=== PATIENT | female | born 1955 | race Caucasian/White ===

== ENCOUNTER 2016-12-14 13:48 | Emergency (ER) | payer OTHER ==
[~2016-12-14] VITALS: Ht 157.5 cm; Wt 68.0 kg
[~2016-12-14 13:48] MED LIST: HYDR-3498 PO; IBUP400T22 PO; TAMS-14 PO; TRAM50TA2 PO
[2016-12-14 13:57] VITALS: Ht 157.5 cm; Wt 68.0 kg
[2016-12-14] MEDS ORDERED: ATOR40TA68 PO (17:08)
[2016-12-14] MEDS ORDERED: AMLO5TAB4 PO (17:08)
[2016-12-14] MEDS ORDERED: HYDR-906 PO (17:09)
[2016-12-14] MEDS ORDERED: METO25TA7 PO (17:09)
[2016-12-14] MEDS ORDERED: LOSA1TAB21 PO (17:09)
[2016-12-14] MEDS ORDERED: SOD CHLORIDE 0.9% 1,000 ML IV STA (17:21)
[2016-12-14] MEDS ORDERED: BISACODYL 10 MG SUPP PR ONE (17:30)
[2016-12-14] MEDS ORDERED: LACTULOSE 30ML CUP PO ONE (17:30)
[2016-12-14 18:04] LABS: ADD SCAN DIFF NO
[2016-12-14 18:07] LABS: BASOPHIL # 0.1 10^3/ul (0.0-0.1); BASOPHILS % 0.3 % (0.0-2.0); EOSINOPHILS # 0.1 10^3/ul (0.0-0.5); EOSINOPHILS % 0.6 % (0.0-7.0); HEMATOCRIT 42.1 % (37.0-47.0); HEMOGLOBIN 13.4 g/dl (12.0-16.0); LYMPHOCYTES # 1.5 10^3/ul (0.8-2.9); LYMPHOCYTES % 7.6 % (15.0-51.0); MEAN CORPUSCULAR HEMOGLOBIN 28.4 pg (29.0-33.0); MEAN CORPUSCULAR HGB CONC 31.8 g/dl (32.0-37.0); MEAN CORPUSCULAR VOLUME 89.2 fl (82.0-101.0); MEAN PLATELET VOLUME 10.9 fl (7.4-10.4); MONOCYTES % 4.9 % (0.0-11.0); NEUTROPHIL # 17.2 10^3/ul (1.6-7.5); NEUTROPHILS % 85.9 % (39.0-77.0); PLATELET COUNT 449 10^3/UL (140-415); RED BLOOD COUNT 4.72 10^6/ul (4.20-5.40); RED CELL DISTRIBUTION WIDTH 14.1 % (11.5-14.5)
[2016-12-14] MEDS ORDERED: KETOROLAC 30 MG INJ IV STA (18:22)
[2016-12-14 18:27] LABS: ALBUMIN 4.2 g/dl (3.3-4.9); ALBUMIN/GLOBULIN RATIO 1.35; BILIRUBIN,INDIRECT 0.1 mg/dl (0-1.1); BILIRUBIN,TOTAL 0.1 mg/dl (0.2-1.3); CALCIUM 9.6 mg/dl (8.4-10.2); CREATININE 0.82 mg/dl (0.44-1.00); POTASSIUM 3.7 mmol/L (3.5-5.1); TOTAL PROTEIN 7.3 g/dl (6.1-8.1)
--- NOTE | 2016-12-14 18:48 | RADRPT ---
PROCEDURE: CT Abdomen and Pelvis without contrast. CLINICAL INDICATION: Abdominal pelvic pain. Constipation. TECHNIQUE: CT scan of the abdomen and pelvis without contrast was performed on a multidetector hig h-resolution CT scanner. The patient was scanned without intravenous contrast. Coronal and sagittal reformatted images were obtained from the axial source images. Images were reviewed on a high-resol [email or web address] PACS workstation. The total exam CTDI equals 8.88 mGy and the total exam DLP equals 444.95 mGy -cm. One or more of the following dose reduction techniques were used: - Automated exposure control. - Adjustment of the mA and/or kV according to patient size. - Use of iterative reconstruction technique. COMPARISON: Thoracic spine CT scan dated 05/18/2016 FINDINGS: CT abdomen: The lung bases are remarkable for dense subsegmental atelectasis within the right posterior lung bas e. Scattered tiny micronodules are seen within the lung bases bilaterally as well, too small to bianca racterize and overwhelmingly likely benign and inflammatory in nature. The heart size is normal, wi thout pericardial thickening or effusion. The liver is normal in size and density without focal mass or intrahepatic biliary dilatation. There is a small 11 mm cyst in the lateral segment of the left lobe of the liver. The spleen is normal in size and homogeneous in density. The stomach is partially collapsed, but is grossly unremarkable. The pancreas as visualized is normal. The gallbladder and biliary tree are unremarkable and there is no evidence for biliary dilatation. The adrenal glands are symmetric and remarkable for nodular pleural thickening bilaterally, probably with multiple small adrenal adenomas. The largest nodule i s present on the left side and measures 19 mm in maximal dimension. The kidneys are asymmetric, nor mal on the right and mildly shrunken and atrophic on the left. No renal calculus or obstructive urop athy or mass lesion is seen. The aorta is of normal caliber. Aortic vascular calcifications are present. There is no retroperit carrillo lymphadenopathy. The brian hepatis region is clear. The bowel and mesentery, as visualized, are equally unremarkable. Moderate and significant stool is seen throughout the colon consistent wit h moderate constipation. CT pelvis: The small bowel loops situated within the pelvis are unremarkable. The pelvic organs are normal. Th e bladder is significantly distended. The pelvic sidewalls and inguinal regions are clear. The sigm oid colon and rectum are remarkable for moderate constipation, with a large amount of significant de nse constipation within the distal rectal vault. Mild perirectal and presacral stranding and edema is present. No mass or adenopathy is seen. No free fluid is present. No acute inflammation is ident ified at this time. The surrounding osseous structures are remarkable for degenerative spondylosis of the spine. No ost eolytic or osteoblastic lesion is detected. Moderate compression fracture of the T12 vertebral body is seen, age indeterminate. This may be acute. Edema around this vertebral body is noted. Further evaluation with lumbar spine MRI is recommended. This is a new finding when compared to the previou s thoracic spine CT scan study. Severe discogenic disease and disk space narrowing at the L5-S1 leve l is identified. IMPRESSION: 1. Moderate acute compression fracture of the T12 vertebral body. Further evaluation with MRI of t he thoracolumbar junction of the spine is recommended for more complete assessment. 2. Significant colonic constipation throughout the colon, with a large amount of stool within the d istal rectal vault. 3. Vascular calcifications consistent with atherosclerosis. 4. Tiny micronodules within the lung bases, too small to characterize, and presumably benign and in flammatory in nature. 5. Mild asymmetric atrophy of the left kidney when compared to the right kidney. 6. Nodular thickening and presumed small benign adrenal adenomas involving the adrenal glands bilat erally. 7. Benign chronic changes seen elsewhere throughout the study, as detailed above. RPTAT: HMJB .Gaetano Collier MD, Date Time Electronically viewed and signed by .Gaetano Collier MD, on 12/14/2016 18:47 .B/
[2016-12-14 19:08] VITALS: TEMP 99
[2016-12-14] MEDS ORDERED: MAGN296S40 PO (19:20)
[2016-12-14] MEDS ORDERED: SENN-53 PO (19:20)
[2016-12-14] MEDS ORDERED: DOCU-144 PO (19:20)
[2016-12-14 19:48] LABS: ADD UMIC NO; URINE BILIRUBIN (Dip) NEGATIVE (NEGATIVE); URINE BLOOD (Dip) NEGATIVE (NEGATIVE); URINE COLOR LT. YELLOW (YELLOW); URINE GLUCOSE (Dip) NEGATIVE (NEGATIVE); URINE KETONES (Dip) NEGATIVE (NEGATIVE); URINE LEUKOCYTE ESTERASE (Dip) NEGATIVE (NEGATIVE); URINE NITRITE (Dip) NEGATIVE (NEGATIVE); URINE TOTAL PROTEIN (Dip) NEGATIVE (NEGATIVE); URINE UROBILINOGEN (Dip) 0.2 E.U./dL (0.1-1.0)
[2016-12-14 20:00] VITALS: BP 157/74; PULSE 75; RESP 18
--- NOTE | 2016-12-14 21:55 | ERD ---
ER Documentation Chief Complaint Date/Time DATE: 12/14/16 TIME: 21:53 Chief Complaint ap, constipation x 4 days HPI Patient is a 61-year-old female who presents with constipation. She said that she has bulging disc in her back and has been taking Monroe for the past 1 week. She has not been able to have a bowel movement for 4 days. She has not had a urination for 6 hours. She tried Ex-Lax and an enema. She then started bleeding from her hemorrhoids. Upon review of old medical records this is the patient's third visit to the ER since 2016. Her primary doctor is Dr. Jason Prater. ROS All systems reviewed and are negative except as per history of present illness. Medications Home Meds Active Scripts Docusate Sodium* (Colace*) 100 Mg Capsule, 200 MG PO BID, #60 CAP Prov:KEITH NICOLAS MD 12/14/16 Sennosides* (Senna Lax*) 8.6 Mg Tablet, 1 TAB PO BID, #30 TAB Prov:KEITH NICOLAS MD 12/14/16 Magnesium Citrate* (Magnesium Citrate*) 296 Ml Solution, 296 ML PO ONCE, #1 BOTTLE Prov:KEITH NICOLAS MD 12/14/16 Reported Medications Losartan-Hydrochlorothiazide (Losartan-HCTZ) 100-12.5 Mg Tab, 1 TAB PO DAILY, TAB 12/14/16 Metoprolol Succinate* (Toprol XL*) 25 Mg Tab.sr.24h, 25 MG PO DAILY, #30 TAB 12/14/16 Hydrocodone/Acetaminophen (Monroe 5-325 Tablet) 1 Each Tablet, 1 EACH PO BID, TAB 12/14/16 Atorvastatin* (Atorvastatin*) 40 Mg Tablet, 40 MG PO QHS, #30 TAB 12/14/16 Amlodipine Besylate* (Norvasc*) 5 Mg Tablet, 5 MG PO DAILY, TAB 12/14/16 Discontinued Scripts Tramadol HCl (Tramadol HCl) 50 Mg Tablet, 50 MG PO Q6 Y for PAIN, #20 TAB Prov:POOJA RODRÍGUEZ NP 05/18/16 Ibuprofen* (Motrin*) 400 Mg Tab, 400 MG PO Q6H Y for PAIN AND OR ELEVATED TEMP, #30 TAB Prov:POOJA RODRÍGUEZ NP 05/18/16 Hydrocodone Bit-Acetaminophen* (Monroe*) 5-325 Mg Tab, 1 TAB PO Q6 Y for PAIN, # 7 TAB Prov:RON,GEORGIANA I. CIVIL TECHNICIAN 01/02/16 Tamsulosin Hcl* (Flomax*) 0.4 Mg Cap.er.24h, 0.4 MG PO BID, #10 CAP Prov:RONGEORGIANA I. CIVIL TECHNICIAN 01/02/16 Allergies Allergies: Coded Allergies: No Known Allergy (Unverified , 12/14/16) PMhx/Soc History of Surgery: No Anesthesia Reaction: No Hx Neurological Disorder: No Hx Respiratory Disorders: No Hx Cardiac Disorders: Yes (HTN, high cholesterol) Hx Psychiatric Problems: No Hx Alcohol Use: Yes (1 beer a day) Hx Substance Use: No Hx Tobacco Use: Yes (1/2 pack/day) Smoking Status: Current every day smoker FmHx Family History: No diabetes Physical Exam Vitals Vital Signs Date Time Temp Pulse Resp B/P Pulse Ox O2 Delivery O2 Flow Rate FiO2 12/14/16 20:00 75 18 157/74 97 Room Air 12/14/16 19:08 99.0 80 18 158/82 97 Room Air 12/14/16 16:42 99 18 170/88 98 Room Air 12/14/16 13:57 98.1 96 18 148/62 99 Physical Exam Const: No acute distress Head: Atraumatic Eyes: Normal Conjunctiva ENT: Normal External Ears, Nose and Mouth. Neck: Full range of motion..~ No meningismus. Resp: Clear to auscultation bilaterally Cardio: Regular rate and rhythm, no murmurs Abd: Soft, non tender, non distended. Normal bowel sounds Skin: No petechiae or rashes Back: No midline or flank tenderness Ext: No cyanosis, or edema Neur: Awake and alert Psych: Normal Mood and Affect Result Diagram: 12/14/16 1730 12/14/16 173 Results 24 hrs Laboratory Tests Test 12/14/16 17:30 12/14/16 18:50 White Blood Count 20.010^3/ul Red Blood Count 4.7210^6/ul Hemoglobin 13.4g/dl Hematocrit 42.1% Mean Corpuscular Volume 89.2fl Mean Corpuscular Hemoglobin 28.4pg Mean Corpuscular Hemoglobin Concent 31.8g/dl Red Cell Distribution Width 14.1% Platelet Count 55500^3/UL Mean Platelet Volume 10.9fl Neutrophils % 85.9% Lymphocytes % 7.6% Monocytes % 4.9% Eosinophils % 0.6% Basophils % 0.3% Nucleated Red Blood Cells % 0.0/100WBC Neutrophils # 17.210^3/ul Lymphocytes # 1.510^3/ul Monocytes # 1.010^3/ul Eosinophils # 0.110^3/ul Basophils # 0.110^3/ul Nucleated Red Blood Cells # 0.010^3/ul Sodium Level 137mmol/L Potassium Level 3.7mmol/L Chloride Level 104mmol/L Carbon Dioxide Level 24mmol/L Anion Gap 13 Blood Urea Nitrogen 14mg/dl Creatinine 0.82mg/dl Glucose Level 107mg/dl Calcium Level 9.6mg/dl Total Bilirubin 0.1mg/dl Direct Bilirubin 0.00mg/dl Indirect Bilirubin 0.1mg/dl Aspartate Amino Transf (AST/SGOT) 18IU/L Alanine Aminotransferase (ALT/SGPT) 25IU/L Alkaline Phosphatase 123IU/L Total Protein 7.3g/dl Albumin 4.2g/dl Globulin 3.10g/dl Albumin/Globulin Ratio 1.35 Lipase 78U/L Urine Color LT. YELLOW Urine Clarity CLEAR Urine pH 6.0 Urine Specific [place] 1.025 Urine Ketones NEGATIVE Urine Nitrite NEGATIVE Urine Bilirubin NEGATIVE Urine Urobilinogen 0.2 E.U./dL Urine Leukocyte Esterase NEGATIVE Urine Hemoglobin NEGATIVE Urine Glucose NEGATIVE% Urine Total Protein NEGATIVE Current Medications Medications (Trade) Dose Ordered Sig/Juan Jose Route PRN Reason Start Time Stop Time Status Last Admin Dose Admin Sodium Chloride (NS) 1,000 ml @ 1,000 mls/hr Q1H STAT IV 12/14/16 17:21 12/14/16 18:20 DC 12/14/16 19:01 Lactulose (Enulose) 20 gm ONCE ONCE PO 12/14/16 17:30 12/14/16 17:31 DC 12/14/16 18:25 Bisacodyl (Dulcolax Supp) 10 mg ONCE ONCE AL 12/14/16 17:30 12/14/16 17:31 DC 12/14/16 19:02 Ketorolac Tromethamine (Toradol) 30 mg ONCE STAT IV 12/14/16 18:22 12/14/16 18:23 DC 12/14/16 18:27 Procedures/MDM CT shows constipation and T12 acute fracture per radiology. Patient is a 61-year-old female presents with abdominal pain and constipation. She was also found to have a compression fracture. She was given lactulose, Dulcolax, and I believe outpatient management is appropriate. The patient will need to follow-up with her primary doctor within 24-48 hours. She can return sooner for any worsening symptoms. She will be given a prescription for mag citrate and senna and Colace. I doubt appendicitis, cholecystitis, pancreatitis , or bowel obstruction. Departure Diagnosis: Primary Impression: Constipation Constipation type: unspecified constipation type Qualified Code: K59.00 - Constipation, unspecified constipation type Additional Impressions: Compression fracture Abdominal pain Abdominal location: generalized Qualified Code: R10.84 - Generalized abdominal pain Condition: Fair Patient Instructions: Abdominal Pain, Treating Constipation Additional Instructions: Call your primary care doctor TOMORROW for an appointment during the next 1-2 days.See the doctor sooner or return here if your condition worsens before your appointment time. KEITH NICOLAS MD December 14, 2016 21:55
== END 2016-12-14 20:00 | disposition home or self-care (01) ==
LOC: E/R 13:48
DX: K59.00 Constipation, unspecified (principal); S22.080A Wedge compression fracture of T11-T12 vertebra, initial encounter for closed fracture; R10.84 Generalized abdominal pain; R40.2142 Coma scale, eyes open, spontaneous, at arrival to emergency department; R40.2252 Coma scale, best verbal response, oriented, at arrival to emergency department; R40.2362 Coma scale, best motor response, obeys commands, at arrival to emergency department; I10 Essential (primary) hypertension; F17.210 Nicotine dependence, cigarettes, uncomplicated; X58.XXXA Exposure to other specified factors, initial encounter; Y92.9 Unspecified place or not applicable
CPT/HCPCS: 74176; 80053; 81003; 83690; 85025; J1885; J7030; 36415; 96374

== ENCOUNTER 2017-03-08 04:12 | Inpatient (IN) | payer OTHER ==
[~2017-03-08] VITALS: Ht 160 cm; Wt 48.6 kg
[~2017-03-08 04:12] MED LIST changes: +AMLO5TAB4 PO; +ATOR40TA68 PO; +DOCU-144 PO; -HYDR-3498 PO; +HYDR-906 PO; -IBUP400T22 PO; +LOSA1TAB21 PO; +MAGN296S40 PO; +METO25TA7 PO; +SENN-53 PO; -TAMS-14 PO; -TRAM50TA2 PO
[2017-03-08] MEDS ORDERED: SOD CHLORIDE 0.9% 1,000 ML IV STA (04:22)
[2017-03-08] MEDS ORDERED: SOD CHLORIDE 0.9% 500 ML IV STA ×2 (04:25→07:01)
[2017-03-08] MEDS ORDERED: morphine 4 MG/ML VIAL IV ONE (04:32)
[2017-03-08] MEDS ORDERED: ONDANSETRON 4 MG INJ IV ONE (04:33)
[2017-03-08 05:03] LABS: ABNORMAL IP MESSAGE 1; HEMATOCRIT 42.7 % (37.0-47.0); HEMOGLOBIN 14.3 g/dl (12.0-16.0); MEAN CORPUSCULAR HEMOGLOBIN 29.1 pg (29.0-33.0); MEAN CORPUSCULAR HGB CONC 33.5 g/dl (32.0-37.0); MEAN CORPUSCULAR VOLUME 86.8 fl (82.0-101.0); MEAN PLATELET VOLUME 10.2 fl (7.4-10.4); PLATELET COUNT 612 10^3/UL (140-415); RED BLOOD COUNT 4.92 10^6/ul (4.20-5.40); RED CELL DISTRIBUTION WIDTH 14.8 % (11.5-14.5)
[2017-03-08 05:17] LABS: ADD UMIC YES; POSITIVE DIFF @See below; UR ASCORBIC ACID NEGATIVE (NEGATIVE); UR BACTERIA FEW /HPF (NONE SEEN); UR BILIRUBIN (Dip) NEGATIVE (NEGATIVE); UR BLOOD (Dip) NEGATIVE (NEGATIVE); UR CLARITY CLEAR (CLEAR); UR COLOR YELLOW (YELLOW); UR GLUCOSE (Dip) NEGATIVE (NEGATIVE); UR KETONES (Dip) NEGATIVE (NEGATIVE); UR LEUKOCYTE ESTERASE (Dip) 2+ Leu/ul (NEGATIVE); UR NITRITE (Dip) NEGATIVE (NEGATIVE); UR RBC 4 /HPF (0-5); UR TOTAL PROTEIN (Dip) NEGATIVE (NEGATIVE); UR UROBILINOGEN (Dip) NEGATIVE (NEGATIVE)
[2017-03-08] MEDS ORDERED: CYCL-319 PO (05:19)
[2017-03-08] MEDS ORDERED: TRAM-40 PO (05:19)
[2017-03-08 05:30] LABS: ALANINE AMINOTRANSFERASE 25 IU/L (13-69); ALBUMIN 4.1 g/dl (3.3-4.9); ALBUMIN/GLOBULIN RATIO 1.24; ALKALINE PHOSPHATASE 136 IU/L (42-121); ANION GAP 21 (8-16); ASPARTATE AMINO TRANSFERASE 19 IU/L (15-46); BILIRUBIN,INDIRECT 0.2 mg/dl (0-1.1); BILIRUBIN,TOTAL 0.2 mg/dl (0.2-1.3); BLOOD UREA NITROGEN 16 mg/dl (7-20); CALCIUM 9.7 mg/dl (8.4-10.2); CARBON DIOXIDE 26 mmol/L (21-31); CHLORIDE 99 mmol/L (97-110); CREATININE 1.24 mg/dl (0.44-1.00); GLUCOSE 111 mg/dl (70-220); POTASSIUM 3.7 mmol/L (3.5-5.1); SODIUM 142 mmol/L (135-144); TOTAL PROTEIN 7.4 g/dl (6.1-8.1)
[2017-03-08] MEDS ORDERED: HYDROmorphONE 1 MG/ML SYG IV ONE (05:40)
[2017-03-08 05:42] LABS: TROPONIN-I < 0.012 ng/ml (0.00-0.12)
--- NOTE | 2017-03-08 05:57 | RADRPT ---
PROCEDURE: CT ABDOMEN/PELVIS WITHOUT CONTRAST CLINICAL INDICATION: 61-year-old female with abdominal pain. TECHNIQUE: The study was performed utilizing a GE Open[employer] VCT 64-slice CT scanner. Direct axia l sections were obtained through the abdomen and pelvis without the use of intravenous contrast mate rial. Sagittal and coronal reformations were obtained. One or more of the following dose reduction t echniques were utilized: automated exposure control, adjustment of the mA and/or kV according to pat ient's size or use of iterative reconstruction technique. The images were reviewed on a [facility]. CTD/vol = 7.2 mGy; Total Exam DLP = 366 point a mGy-cm. COMPARISON: CT abdomen/pelvis December 14, 2016. FINDINGS: There is a partially visualized right basilar pneumothorax. There is a mild right-sided hemothorax. There are fractures identified involving the right seventh, eighth and ninth ribs in the midaxilla ry line, right ninth rib posteriorly and right fifth, sixth, and seventh ribs anteriorly. There is adjacent pleural thickening. There is minimal small foci of right upper quadrant pneumoperitoneum. There is minimal free fluid a djacent to the inferior margin of the right lobe of the liver. There is mild diffuse infiltration of the ventral mesentery. The liver has a normal size and contour. There is again identified a small left hepatic cyst on axial image 3-30 measuring approximately 8 x 9 mm. No intrahepatic nor extrahep atic biliary ductal dilatation is seen. The gallbladder demonstrates no wall thickening nor perichol ecystic fluid. No biliary stones are evident. The pancreas is without areas of abnormal attenuation. The spleen is identified and has a normal size without abnormal density. The adrenal glands are pr ominent bilaterally secondary to hyperplasia and without interval change. The kidneys are without ab normal density. The left kidney is noted to be moderately atrophic. No hydroureteronephrosis nor nep hroureterolithiasis is evident. The urinary bladder contains urine. There is retained stool within the ascending and transverse colon without obstruction. There is a lipoma present within the proxim al ascending colon measuring approximately 2.2 x 2.6 x 2.7 cm. This was present previously and with out significant interval change. The appendix is visualized and is without abnormal thickening or s urrounding inflammatory reaction. The uterus is atrophic. There is mild pelvic free fluid. The aort oiliac vessels are diffusely calcified but without aneurysmal dilatation. Degenerative changes are p resent within the spine. There is a compression fracture of the superior T12 vertebral body with pr ogressive sclerotic appearance and loss of height of approximately 70% centrally. IMPRESSION: 1. Partially visualized right basilar hemopneumothorax with adjacent acute right fifth through nint h rib fractures. 2. Minimal right upper quadrant pneumoperitoneum. 3. Minimal free fluid adjacent to the inferior margin of the right lobe of the liver with mild free fluid in the pelvis. 4. Infiltration of the ventral upper abdominal mesentery presumably representing a post-traumatic m esenteric contusion. 5. Small stable left hepatic cyst. 6. Mildly enlarged adrenal glands bilaterally presumably secondary to hyperplasia. 7. Ascending colon lipoma. 8. Vascular calcifications. 9. Superior T12 compression fracture (70%) with progressive loss of height and sclerotic appearance . CALL REPORT: A call report was made to [facility] ER Dr. Ty on March 08, 2017 at 05:53 a.m. .Ramon Le MD, MD Date Time Electronically viewed and signed by .Ramon Le MD, MD on 03/08/2017 05:57 .M/
[2017-03-08 06:14] LABS: BASOPHIL # 0.4 10^3/ul (0.0-0.1); EOSINOPHILS # 0.4 10^3/ul (0.0-0.5); LYMPHOCYTES # 1.8 10^3/ul (0.8-2.9); MONOCYTE # 2.5 10^3/ul (0.3-0.9); NEUTROPHIL # 27.8 10^3/ul (1.6-7.5)
[2017-03-08] MEDS ORDERED: HYDROmorphONE 1 MG/ML SYG IV STA ×2 (06:59→11:00)
[2017-03-08] MEDS ORDERED: SOD CHLORIDE 0.9% 100 ML ONE (07:51)
[2017-03-08] MEDS ORDERED: IODIXANOL LOCM 100 ML BTL ONE (07:51)
--- NOTE | 2017-03-08 09:44 | RADRPT ---
PROCEDURE: CT Chest, Abdomen and Pelvis with contrast. CLINICAL INDICATION: Chest and abdominal pain status post fall. TECHNIQUE: CT scan of the chest, abdomen, and pelvis with contrast was performed on a multi-detect or high-resolution CT scanner. The patient was scanned following the uncomplicated intravenous adm inistration of 100 cc of Visipaque 320 intravenous contrast. Coronal and sagittal reformatted imag es were obtained from the axial source images. [facility] The total exam CTDI equals 7.04 mGy and the total exam DLP equals 466.74 mGy-cm. One or more of the following dose reduction techniques were used: Automated exposure control. Adjustment of the mA and/or kV according to patient size. Use of iterative reconstruction technique. COMPARISON: CT abdomen and pelvis without contrast 03/08/2017. FINDINGS: CT chest: There are mildly displaced lateral rib fractures involving the right fourth through eighth ribs. Th ere is also mildly displaced posterior rib fractures involving the right ninth ribs. There is a sma ll right pleural effusion with mild pleural thickening. There is subsegmental atelectasis in the ri ght middle lobe and right lung base. There is minimal anteriorly loculated right pneumothorax. The mediastinum is unremarkable without evidence for mass or lymphadenopathy. The vascular structur es of the mediastinum are normal in course and caliber. Aortic vascular calcifications and coronary artery calcifications are present. The heart size is normal without evidence for pericardial thicke campbell or effusion. The axillary regions, subpectoral regions, and supraclavicular regions are all unr emarkable. CT abdomen: There is minimal perihepatic fluid. No evidence of liver laceration. Minimal pneumoperitoneum is a gain identified in the right upper quadrant. There is a small cyst in the left hepatic lobe. The sp chau is normal in size and homogeneous in density. The stomach is partially collapsed, but is gross ly unremarkable. The pancreas as visualized is normal. The gallbladder and biliary tree are unrema rkable and there is no evidence for biliary dilatation. Nodular thickening of bilateral adrenal gla nds are again identified. There is atrophic left kidney. The right kidney is normal in size with n o hydronephrosis. No renal calculus or obstructive uropathy or mass lesion is seen. The aorta is of normal caliber. Aortic vascular calcifications are present. There is no retroperit carrillo lymphadenopathy. The brian hepatis region is clear. Redemonstrated is a lipoma in the ascend ing colon. CT pelvis: The small bowel loops situated within the pelvis are unremarkable. The pelvic organs are normal. T he pelvic sidewalls and inguinal regions are clear. The sigmoid colon and rectum are all unremarkab le. No mass, lymphadenopathy, or free fluid is seen. No acute inflammation is seen. Chronic-appear ing moderate to severe compression fracture of T7 with approximately 80% height loss and moderate co mpression fracture of T12 with approximately 50% height loss are noted. There is no significant ret ropulsion. The surrounding osseous structures are remarkable for degenerative spondylosis of the sp ine. No osteolytic or osteoblastic lesion is detected. IMPRESSION: Chest: 1. Mildly displaced lateral rib fractures of the right fourth through eighth ribs and posterior rig ht ninth ribs. 2. Small hemopneumothorax, not significantly changed. 3. Concentric atherosclerotic calcifications of the ascending aorta. Scattered coronary artery vasc ular calcifications. 4. Moderate to severe chronic-appearing compression fracture of T7 and moderate compression fractur e of T12. Abdomen and pelvis: 1. Slightly increased small perihepatic fluid with interval decrease in minimal free air in the rig ht upper quadrant. 2. No evidence of solid organ injury. 3. Mild atrophy of the left kidney. 4. Nodular thickening of bilateral adrenal glands. 5. Ascending colon lipoma. 6. Aortoiliac atherosclerosis. RPTAT: BB .David Mendoza MD, Date Time Electronically viewed and signed by .David Mendoza MD, on 03/08/2017 09:44 .O/
[2017-03-08] MEDS ORDERED: SOD CHLORIDE 0.9% 1,000 ML IV SCH (10:59)
[2017-03-08] MEDS ORDERED: ACETAMINOPHEN 650 MG SUPP PR PRN (11:00)
[2017-03-08] MEDS ORDERED: morphine 4 MG/ML VIAL IV PRN (11:00)
[2017-03-08] MEDS ORDERED: NACL 0.9% 3 ML SYG IV SCH (11:00)
[2017-03-08] MEDS ORDERED: ONDANSETRON 4 MG INJ IV PRN (11:00)
[2017-03-08] MEDS ORDERED: CYCLOBENZAPRINE 10 MG TAB PO PRN (11:00)
[2017-03-08] MEDS ORDERED: DOCUSATE SODIUM 100 MG CAP PO PRN (11:00)
[2017-03-08] MEDS ORDERED: ACETAMINOPHEN 325 MG TAB PO PRN (11:00)
[2017-03-08] MEDS ORDERED: hydrALAzine 20 MG INJ IV PRN (11:30)
[2017-03-08] MEDS ORDERED: PIPER-TAZO 3.375 GM IV (PMX) 100 ML IVPB ONE (11:30)
[2017-03-08] MEDS: CEFTRIAXONE 1 GM/50 ML (PMX) 50 ML IVPB SCH (12:02)
[2017-03-08] MEDS ORDERED: NITROGLYCERIN (SL) 0.4 MG TAB SL PRN (12:30)
[2017-03-08] MEDS ORDERED: ALBUTEROL/IPRATROPIUM (NEB) 3 ML AMP NEB PRN (12:30)
--- NOTE | 2017-03-08 13:32 | CONS ---
Date/Time of Note Date/Time of Note DATE: 03/08/17 TIME: 13:18 Assessment/Plan Assessment/Plan Chief Complaint/Hosp Course 61-year-old female status post fall 3 weeks ago with multiple rib fractures, hemopneumothorax, minimal pneumoperitoneum, free abdominal fluid * The small amount of pneumoperitoneum is likely secondary to the hemopneumothorax and rib fractures which has tracked into the abdomen. Patient also likely has some hemoperitoneum. My suspicion for intestinal injury is low however, cannot be completely ruled out * At this time given patient's clinical stability, would recommend n.p.o., pain control, bedrest, serial CBCs * Thoracic surgery evaluation for possibility of chest tube insertion and evacuation of hemopneumothorax. * Pain control for rib fractures. Oxygen support. Incentive spirometry. * Once she is stable from a pulmonary standpoint I would like to repeat the CT of the abdomen and pelvis with oral contrast to further evaluate for possible intestinal injury. I discussed the above with the patient and her daughter in full detail. I ensured that all of her questions were answered. Further recommendations will be made based on patient's clinical course. Problems: Consultation Date/Type/Reason Admit Date/Time Date of Consultation: Mar 08, 2017 Type of Consultation: GENERAL SURGERY Reason for Consultation Abdominal pain Hx of Present Illness The patient is a 61-year-old [facility], [place] speaking female who presented to the emergency room complaining of abdominal pain and chest wall pain. History was obtained from the patient's daughter who is at the bedside. Apparently, approximately 3 weeks ago the patient sustained a fall with multiple rib fractures. She has since been under the care of a chiropractor for rehabilitation. This morning the patient woke up complaining of upper abdominal pain. She denies any nausea/vomiting, diarrhea/constipation or fever/ chills. She denies any blood in stool. She was brought to the emergency room where a workup including a CT scan of the chest, abdomen and pelvis showed a hemopneumothorax as well as a small amount of pneumoperitoneum in the right upper quadrant. The patient has since been started on pain control and oxygen. She reports improvement of her pain. A 14 point review of systems was conducted and was negative except for that which is mentioned in HPI Past Medical History Medical History: no pertinent history Past Surgical History Past Surgical Hx: no surgical history Family History Significant Family History: no pertinent family hx Social History Smoking Status: Current some day smoker Exam/Review of Systems Vital Signs Vitals Vital Signs Date Time Temp Pulse Resp B/P Pulse Ox O2 Delivery O2 Flow Rate FiO2 03/08/17 12:09 98 24 140/86 97 Nasal Cannula 2.0 03/08/17 10:49 98.3 Exam GENERAL: Awake, alert, oriented x 3. No acute distress. Sitting up in bed. SKIN: No jaundice. HEENT: PERRLA, EOMI, No Scleral Icterus NECK: Supple without JVD CARDIOVASCULAR: S1S2, regular rate and rhythm. CHEST WALL: Tenderness of right chest wall RESPIRATORY: Decreased breath sounds right lung base. Somewhat labored breathing. ABDOMEN: Mild upper abdominal tenderness to palpation. There is no signs of diffuse peritonitis. EXTREMITIES: Free range of motion x 4. No cyanosis, edema, or clubbing. NEUROLOGIC: Cranial nerves II-XII are intact. Sensation is intact grossly. Results Result Diagram: 03/08/17 0445 03/08/17 0445 Results 24 hrs Laboratory Tests Test 03/08/17 04:45 03/08/17 11:18 White Blood Count 36.1 #H Red Blood Count 4.92 Hemoglobin 14.3 Hematocrit 42.7 Mean Corpuscular Volume 86.8 Mean Corpuscular Hemoglobin 29.1 Mean Corpuscular Hemoglobin Concent 33.5 Red Cell Distribution Width 14.8 H Platelet Count 612 #H Mean Platelet Volume 10.2 Neutrophils % 77.0 Lymphocytes % 5.0 L Monocytes % 7.0 Eosinophils % 1.0 Basophils % 1.0 Nucleated Red Blood Cells % 0.0 Neutrophils # 27.8 H Band Neutrophils # 27.8 H Lymphocytes # 1.8 Monocytes # 2.5 H Eosinophils # 0.4 Basophils # 0.4 H Nucleated Red Blood Cells # Activated Partial Thromboplast Time 22.5 L Urine Color YELLOW Urine Clarity CLEAR Urine pH 5.0 Urine Specific [place] 1.010 Urine Ketones NEGATIVE Urine Nitrite NEGATIVE Urine Bilirubin NEGATIVE Urine Urobilinogen NEGATIVE Urine Leukocyte Esterase 2+ H Urine Microscopic RBC 4 Urine Microscopic WBC 7 H Urine Bacteria FEW A Urine Hemoglobin NEGATIVE Urine Glucose NEGATIVE Urine Total Protein NEGATIVE Sodium Level 142 Potassium Level 3.7 Chloride Level 99 Carbon Dioxide Level 26 Anion Gap 21 H Blood Urea Nitrogen 16 Creatinine 1.24 H Glucose Level 111 Calcium Level 9.7 Total Bilirubin 0.2 Direct Bilirubin 0.00 Indirect Bilirubin 0.2 Aspartate Amino Transf (AST/SGOT) 19 Alanine Aminotransferase (ALT/SGPT) 25 Alkaline Phosphatase 136 H Troponin I < 0.012 Total Protein 7.4 Albumin 4.1 Globulin 3.30 H Albumin/Globulin Ratio 1.24 Lipase 341 H Lactic Acid Level 1.8 Medications Medications Current Medications Amlodipine Besylate (Norvasc) 5 mg DAILY PO ; Start 03/09/17 at 09:00 Atorvastatin Calcium (Lipitor) 40 mg QHS PO ; Start 03/08/17 at 21:00 Cyclobenzaprine HCl (Flexeril) 10 mg Q8 PRN PO MUSCLE SPASMS; Start 03/08/17 at 11:00 Docusate Sodium (Colace) 200 mg BID PO ; Start 03/08/17 at 21:00 Metoprolol Succinate (Toprol Xl) 25 mg DAILY PO ; Start 03/09/17 at 09:00 Senna (Senokot) 1 tab BID PO ; Start 03/08/17 at 21:00 Losartan Potassium 100 mg 100 mg DAILY PO ; Start 03/09/17 at 09:00 Sodium Chloride (NS) 1,000 ml @ 75 mls/hr [id number] IV ; Start 03/08/17 at 10:59 Ondansetron HCl (Zofran Inj) 4 mg Q6H PRN IV NAUSEA AND/OR VOMITING; Start 03/08 at 11:00 Acetaminophen (Tylenol Tab) 650 mg Q6H PRN PO PAIN LEVEL 1-3 OR FEVER; Start at 11:00 Acetaminophen (Tylenol Supp) 650 mg Q6H PRN [place] PAIN LEVEL 1-3 OR FEVER; Start 03/08/17 at 11:00 Acetaminophen/ Hydrocodone Bitart ([place] (5/325)) 1 tab Q6H PRN PO MODERATE PAIN LEVEL 4-6; Start 03/08/17 at 11:00 Morphine Sulfate (morphine) 2 mg Q4H PRN IV SEVERE PAIN LEVEL 7-10; Start at 11:00 Docusate Sodium (Colace) 100 mg Q12H PRN PO CONSTIPATION; Start 03/08/17 at 11: 00 Famotidine 20 mg 20 mg HS IV ; Start 03/08/17 at 21:00 Ceftriaxone Sodium (Rocephin) 50 ml @ 100 mls/hr Q24H IVPB Last administered on 03/08/17t 12:02; Admin Dose 100 MLS/HR; Start 03/08/17 at 11:30 Hydralazine HCl (Apresoline) 10 mg Q6H PRN IV SBP>160; Start 03/08/17 at 11:30 Hydrochlorothiazide (Hydrochlorothiazide) 12.5 mg DAILY PO ; Start 03/09/17 at 09 :00 Nitroglycerin (Nitroglycerin (Sl Tab) 0.4 Mg) 1 tab Q5M PRN SL CHEST PAIN; Start 03/08/17 at 12:30 Procedures Procedures PROCEDURE: CT Chest, Abdomen and Pelvis with contrast. CLINICAL INDICATION: Chest and abdominal pain status post fall. TECHNIQUE: CT scan of the chest, abdomen, and pelvis with contrast was performed on a multi-detector high-resolution CT scanner. The patient was scanned following the uncomplicated intravenous administration of 100 cc of Visipaque 320 intravenous contrast. Coronal and sagittal reformatted images were obtained from the axial source images. Images were reviewed on a high- resolution PACS workstation. The total exam CTDI equals 7.04 mGy and the total exam DLP equals 466.74 mGy-cm. One or more of the following dose reduction techniques were used: Automated exposure control. Adjustment of the mA and/or kV according to patient size. Use of iterative reconstruction technique. COMPARISON: CT abdomen and pelvis without contrast 03/08/2017. FINDINGS: CT chest: There are mildly displaced lateral rib fractures involving the right fourth through eighth ribs. There is also mildly displaced posterior rib fractures involving the right ninth ribs. There is a small right pleural effusion with mild pleural thickening. There is subsegmental atelectasis in the right middle lobe and right lung base. There is minimal anteriorly loculated right pneumothorax. The mediastinum is unremarkable without evidence for mass or lymphadenopathy. The vascular structures of the mediastinum are normal in course and caliber. Aortic vascular calcifications and coronary artery calcifications are present. The heart size is normal without evidence for pericardial thickening or effusion. The axillary regions, subpectoral regions, and supraclavicular regions are all unremarkable. CT abdomen: There is minimal perihepatic fluid. No evidence of liver laceration. Minimal pneumoperitoneum is again identified in the right upper quadrant. There is a small cyst in the left hepatic lobe. The spleen is normal in size and homogeneous in density. The stomach is partially collapsed, but is grossly unremarkable. The pancreas as visualized is normal. The gallbladder and biliary tree are unremarkable and there is no evidence for biliary dilatation. Nodular thickening of bilateral adrenal glands are again identified. There is atrophic left kidney. The right kidney is normal in size with no hydronephrosis. No renal calculus or obstructive uropathy or mass lesion is seen. The aorta is of normal caliber. Aortic vascular calcifications are present. There is no retroperitoneal lymphadenopathy. The brian hepatis region is clear. Redemonstrated is a lipoma in the ascending colon. CT pelvis: The small bowel loops situated within the pelvis are unremarkable. The pelvic organs are normal. The pelvic sidewalls and inguinal regions are clear. The sigmoid colon and rectum are all unremarkable. No mass, lymphadenopathy, or free fluid is seen. No acute inflammation is seen. Chronic-appearing moderate to severe compression fracture of T7 with approximately 80% height loss and moderate compression fracture of T12 with approximately 50% height loss are noted. There is no significant retropulsion. The surrounding osseous structures are remarkable for degenerative spondylosis of the spine. No osteolytic or osteoblastic lesion is detected. IMPRESSION: Chest: 1. Mildly displaced lateral rib fractures of the right fourth through eighth ribs and posterior right ninth ribs. 2. Small hemopneumothorax, not significantly changed. 3. Concentric atherosclerotic calcifications of the ascending aorta. Scattered coronary artery vascular calcifications. 4. Moderate to severe chronic-appearing compression fracture of T7 and moderate compression fracture of T12. Abdomen and pelvis: 1. Slightly increased small perihepatic fluid with interval decrease in minimal free air in the right upper quadrant. 2. No evidence of solid organ injury. 3. Mild atrophy of the left kidney. 4. Nodular thickening of bilateral adrenal glands. 5. Ascending colon lipoma. 6. Aortoiliac atherosclerosis. RPTAT: BB .David Mendoza MD, MD Date Time Electronically viewed and signed by .David Mendoza MD, MD on 03/08/2017 09:44 .O/ CC: DAMIANAIXA GUZMAN MD, MICHAEL A. MD Mar 08, 2017 13:32
--- NOTE | 2017-03-08 13:57 | CONS ---
Date/Time of Note Date/Time of Note DATE: 03/08/17 TIME: 13:53 Assessment/Plan Assessment/Plan Additional Assessment/Plan CT chest was reviewed as well as abdomen which is showing a very small right anterior loculated hemopneumothorax. Multiple rib fractures are seen from ribs fifth to ninth which are nondisplaced. Assessment and recommendations; next 1. Patient with history of fall 3 weeks ago now complaining of right upper quadrant abdominal pain with interval improvement. 2. Very small right anterior hemopneumothorax. Continue pain control. Patient does not need any intervention. Consultation Date/Type/Reason Admit Date/Time Date of Consultation: Mar 08, 2017 Type of Consultation: Pulmonary Reason for Consultation Pulmonary consultation requested for evaluation of right hemopneumothorax. History of present illness; patient is a very pleasant 60-year-old white woman who came into the emergency room with the 102 day history of mild upper quadrant chest pain on the right side. Upon evaluation a CT scan of abdomen and chest was done which is showing a very small right loculated anterior hemopneumothorax. The patient's symptoms have markedly improved since admission. She denies any chest pain, shortness of breath any coughing or hemoptysis. Past medical history; history of hypertension and hyperlipidemia. Medications; reviewed. Allergies; none. Social history; patient smokes half a pack a day. No history of alcohol or drug abuse. Family history; she is she has 2 daughters. Occupation ; patient works for elderly people. Review of systems; denies any headache, seizures, sinus symptoms. Any chest pain, hemoptysis cough or sputum production. Denies any shortness of breath. Abdominal pain has resolved. Denies any nausea vomiting. Any melena hematochezia. Any edema. Any orthopnea. General exam; elderly female, awake alert currently in no distress. Past Medical History Medical History: no pertinent history Past Surgical History Past Surgical Hx: no surgical history Social History Smoking Status: Current some day smoker Exam/Review of Systems Vital Signs Vitals Vital Signs Date Time Temp Pulse Resp B/P Pulse Ox O2 Delivery O2 Flow Rate FiO2 03/08/17 12:09 98 24 140/86 97 Nasal Cannula 2.0 03/08/17 10:49 98.3 Exam HEENT exam; supple neck, no JVD. No lymphadenopathy. Midline trachea. No thyromegaly Patient has dentures. Has midsize pupils bilaterally. Chest exam; alert to auscultation. Mild tenderness involving the right anterolateral chest wall. S1-S2 audible, no murmurs. Regular rhythm. Abdomen exam; soft, nontender. No organomegaly. Bowel sounds audible. Extremity exam; no peripheral edema. Pulses 1+ bilaterally. No clubbing. G[employer]MENT [employer] exam; no focal deficit. Results Result Diagram: 03/08/17 0445 03/08/17 0445 Results 24 hrs Laboratory Tests Test 03/08/17 04:45 03/08/17 11:18 White Blood Count 36.1 #H Red Blood Count 4.92 Hemoglobin 14.3 Hematocrit 42.7 Mean Corpuscular Volume 86.8 Mean Corpuscular Hemoglobin 29.1 Mean Corpuscular Hemoglobin Concent 33.5 Red Cell Distribution Width 14.8 H Platelet Count 612 #H Mean Platelet Volume 10.2 Neutrophils % 77.0 Lymphocytes % 5.0 L Monocytes % 7.0 Eosinophils % 1.0 Basophils % 1.0 Nucleated Red Blood Cells % 0.0 Neutrophils # 27.8 H Band Neutrophils # 27.8 H Lymphocytes # 1.8 Monocytes # 2.5 H Eosinophils # 0.4 Basophils # 0.4 H Nucleated Red Blood Cells # Activated Partial Thromboplast Time 22.5 L Urine Color YELLOW Urine Clarity CLEAR Urine pH 5.0 Urine Specific [place] 1.010 Urine Ketones NEGATIVE Urine Nitrite NEGATIVE Urine Bilirubin NEGATIVE Urine Urobilinogen NEGATIVE Urine Leukocyte Esterase 2+ H Urine Microscopic RBC 4 Urine Microscopic WBC 7 H Urine Bacteria FEW A Urine Hemoglobin NEGATIVE Urine Glucose NEGATIVE Urine Total Protein NEGATIVE Sodium Level 142 Potassium Level 3.7 Chloride Level 99 Carbon Dioxide Level 26 Anion Gap 21 H Blood Urea Nitrogen 16 Creatinine 1.24 H Glucose Level 111 Calcium Level 9.7 Total Bilirubin 0.2 Direct Bilirubin 0.00 Indirect Bilirubin 0.2 Aspartate Amino Transf (AST/SGOT) 19 Alanine Aminotransferase (ALT/SGPT) 25 Alkaline Phosphatase 136 H Troponin I < 0.012 Total Protein 7.4 Albumin 4.1 Globulin 3.30 H Albumin/Globulin Ratio 1.24 Lipase 341 H Lactic Acid Level 1.8 Medications Medications Current Medications Amlodipine Besylate (Norvasc) 5 mg DAILY PO ; Start 03/09/17 at 09:00 Atorvastatin Calcium (Lipitor) 40 mg QHS PO ; Start 03/08/17 at 21:00 Cyclobenzaprine HCl (Flexeril) 10 mg Q8 PRN PO MUSCLE SPASMS; Start 03/08/17 at 11:00 Docusate Sodium (Colace) 200 mg BID PO ; Start 03/08/17 at 21:00 Metoprolol Succinate (Toprol Xl) 25 mg DAILY PO ; Start 03/09/17 at 09:00 Senna (Senokot) 1 tab BID PO ; Start 03/08/17 at 21:00 Losartan Potassium 100 mg 100 mg DAILY PO ; Start 03/09/17 at 09:00 Sodium Chloride (NS) 1,000 ml @ 75 mls/hr [id number] IV Last administered on 10:59; Admin Dose 75 MLS/HR; Start 03/08/17 at 10:59 Ondansetron HCl (Zofran Inj) 4 mg Q6H PRN IV NAUSEA AND/OR VOMITING; Start 03/08 at 11:00 Acetaminophen (Tylenol Tab) 650 mg Q6H PRN PO PAIN LEVEL 1-3 OR FEVER; Start at 11:00 Acetaminophen (Tylenol Supp) 650 mg Q6H PRN [place] PAIN LEVEL 1-3 OR FEVER; Start 03/08/17 at 11:00 Acetaminophen/ Hydrocodone Bitart ([place] (5/325)) 1 tab Q6H PRN PO MODERATE PAIN LEVEL 4-6; Start 03/08/17 at 11:00 Morphine Sulfate (morphine) 2 mg Q4H PRN IV SEVERE PAIN LEVEL 7-10; Start at 11:00 Docusate Sodium (Colace) 100 mg Q12H PRN PO CONSTIPATION; Start 03/08/17 at 11: 00 Famotidine 20 mg 20 mg HS IV ; Start 03/08/17 at 21:00 Ceftriaxone Sodium (Rocephin) 50 ml @ 100 mls/hr Q24H IVPB Last administered on 03/08/17 12:02; Admin Dose 100 MLS/HR; Start 03/08/17 at 11:30 Hydralazine HCl (Apresoline) 10 mg Q6H PRN IV SBP>160; Start 03/08/17 at 11:30 Hydrochlorothiazide (Hydrochlorothiazide) 12.5 mg DAILY PO ; Start 03/09/17 at 09 :00 Nitroglycerin (Nitroglycerin (Sl Tab) 0.4 Mg) 1 tab Q5M PRN SL CHEST PAIN; Start 03/08/17 at 12:30 VASHTI MURRAY Mar 08, 2017 13:56
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
[2017-03-08] MEDS: HYDROmorphONE 1 MG/ML SYG IV PRN ×3 (15:03→23:23)
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
[2017-03-08 16:50] LABS: WHITE BLOOD COUNT 36.1 10^3/ul (4.8-10.8)
[2017-03-08] MEDS: ALBUTEROL/IPRATROPIUM (NEB) 3 ML AMP HHN SCH ×2 (17:25→22:26)
[2017-03-08] MEDS: FAMOTIDINE 20 MG INJ IV SCH (22:50)
[2017-03-08] MEDS: HYDROCODONE/APAP (5/325) TAB PO PRN (22:50)
[2017-03-08] MEDS: DOCUSATE SODIUM 100 MG CAP PO SCH (22:51)
[2017-03-08] MEDS: ATORVASTATIN 40 MG TAB PO SCH (22:52)
[2017-03-08] MEDS: SENNA TAB PO SCH (22:52)
[2017-03-09] VITALS (7 sets, daily range): BP systolic 107–128; BP diastolic 53–58; PULSE 99–108; RESP 18; TEMP 98.3; Ht 160 cm; Wt 48.6 kg
[2017-03-09] MEDS: ALBUTEROL/IPRATROPIUM (NEB) 3 ML AMP HHN SCH ×5 (01:20→20:07)
[2017-03-09] MEDS: SOD CHLORIDE 0.9% 1,000 ML IV SCH ×2 (01:47→15:23)
[2017-03-09] MEDS: HYDROmorphONE 1 MG/ML SYG IV PRN ×4 (03:32→23:21)
[2017-03-09] MEDS: HYDROCODONE/APAP (5/325) TAB PO PRN ×2 (05:22→10:36)
[2017-03-09 05:48] LABS: ABNORMAL IP MESSAGE 1; BASOPHIL # 0.1 10^3/ul (0.0-0.1); BASOPHILS % 0.3 % (0.0-2.0); EOSINOPHILS % 0.1 % (0.0-7.0); HEMATOCRIT 34.3 % (37.0-47.0); HEMOGLOBIN 11.3 g/dl (12.0-16.0); LYMPHOCYTES # 1.3 10^3/ul (0.8-2.9); LYMPHOCYTES % 4.5 % (15.0-51.0); MEAN CORPUSCULAR HEMOGLOBIN 29.1 pg (29.0-33.0); MEAN CORPUSCULAR HGB CONC 32.9 g/dl (32.0-37.0); MEAN CORPUSCULAR VOLUME 88.4 fl (82.0-101.0); MEAN PLATELET VOLUME 10.8 fl (7.4-10.4); MONOCYTE # 1.2 10^3/ul (0.3-0.9); NEUTROPHIL # 26.6 10^3/ul (1.6-7.5); NEUTROPHILS % 89.8 % (39.0-77.0); PLATELET COUNT 462 10^3/UL (140-415); RED BLOOD COUNT 3.88 10^6/ul (4.20-5.40); RED CELL DISTRIBUTION WIDTH 15.4 % (11.5-14.5); WHITE BLOOD COUNT 29.6 10^3/ul (4.8-10.8)
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
[2017-03-09 06:02] LABS: POSITIVE DIFF @See below
[2017-03-09 06:24] LABS: ALBUMIN 3.2 g/dl (3.3-4.9); ALBUMIN/GLOBULIN RATIO 1.06; BILIRUBIN,INDIRECT 0.2 mg/dl (0-1.1); BILIRUBIN,TOTAL 0.2 mg/dl (0.2-1.3); CALCIUM 8.6 mg/dl (8.4-10.2); CHOL/HDL RATIO 2.4 RATIO; CREATININE 0.89 mg/dl (0.44-1.00); MAGNESIUM 1.6 mg/dl (1.7-2.5); PHOSPHORUS 3.5 mg/dl (2.5-4.9); TOTAL PROTEIN 6.2 g/dl (6.1-8.1)
[2017-03-09 06:54] LABS: THYROID STIMULATING HORMONE 4.54 MIU/L (0.465-4.680)
--- NOTE | 2017-03-09 08:31 | RADRPT ---
PROCEDURE: XR Chest. CLINICAL INDICATION: Pneumothorax. Trauma. TECHNIQUE: Single frontal view of the chest was obtained COMPARISON: CT chest 03/08/2017 FINDINGS: A small right apical pneumothorax persists, likely not significantly changed compared to CT of the 0 03/08/2017, allowing for differences in technique. There is a small to moderate right pleural effusion, stable to slightly increased compared to CT of 03/08/2017. There is adjacent right lower lung atelectasis. Left basilar atelectasis is increased from prior CT. No left pneumothorax or left pleural effusion is seen. The cardiomediastinal silhouette is within normal limits. There are atherosclerotic calcifications of the thoracic aorta. There are degenerative changes of the visualized spine and multiple right-sided rib fractures, beatrice r demonstrated on the CT of 03/08/2017. IMPRESSION: 1. Small right apical pneumothorax, likely not significantly changed compared to CT of 03/08/2017, allowing for differences in technique. 2. Small-moderate pleural effusion with adjacent atelectasis, stable to slightly increased compared to prior CT. 3. Increased left basilar atelectasis. 4. Multiple right-sided rib fractures, better demonstrated on CT of 03/08/2017. 5. Thoracic aortic atherosclerotic disease. RPTAT: EE Physician Axel Date Time Electronically viewed and signed by Physician Axel on 03/09/2017 08:30 /
[2017-03-09] MEDS: LOSARTAN 50 MG TAB PO SCH (09:00)
[2017-03-09] MEDS ORDERED: MAGNESIUM SULFATE 1 GM/D5W 100 ML IVPB ONE (09:00)
[2017-03-09] MEDS: SENNA TAB PO SCH ×2 (09:00→20:50)
[2017-03-09] MEDS: AMLODIPINE 5 MG TAB PO SCH (09:00)
[2017-03-09] MEDS: HYDROCHLOROTHIAZIDE 12.5 MG CAP PO SCH (09:00)
--- NOTE | 2017-03-09 09:07 | PN ---
Date/Time of Note Date/Time of Note DATE: 03/09/17 TIME: 09:00 Assessment/Plan VTE Prophylaxis VTE Prophylaxis Intervention: ambulation, SCD's Lines/Catheters IV Catheter Type (from Nrs): Saline Lock Assessment/Plan Chief Complaint/Hosp Course 1. Multiple rib fractures with very small right anterior hemopneumothorax. Remains hemodynamically stable. -continue with oxygen, bronchodilators, incentive spirometry and pain medications. -CT surgery and pulmonary eval appreciated and does not require chest tube insertion at this moment. -Follow-up 1 2D echocardiogram 2. Abdominal pain with free abdominal fluid with small pneumoperitoneum RUQ. Improved. -Status post surgery evaluation and recommended medical management. Diet as per surgery 3. Leukocytosis with possible urinary tract infection. UA with 2+ leukocyte esterase and bacteria. WBC count improving. -Continue ceftriaxone. Follow-up cultures. 4. Thrombocytosis, likely dehydration. Improving. -Continue IV fluids 5. Acute kidney injury, likely secondary to dehydration. Resolved with IV fluids. -We will avoid nephrotoxins and monitor renal function closely. 6. Mildly elevated lipase, likely concurrent. Low possibility for pancreatitis. -Monitor level and intervene as indicated. 7. Essential hypertension. Stable. -Continue antihypertensives. Will adjust as indicated. 8. Hypercholesterolemia -On statin. Lipid panel stable. 9. Chronic pain with multiple thoracic spinal compression fractures. -Continue home medication and PRN analgesics. DVT prophylaxis: SCDs PUD prophylaxis: Pepcid. Plan: Overall, patient feels improvement in pain status. At this time, there is no indication for surgical intervention per consultants recommendation. We will continue to manage patient medically with pulmonary toileting, pain medications. We will also consider repeating a CT in the morning for reevaluation. Follow-up with 2D echocardiogram findings. Patient is medically stable to be transferred to a telemetry floor. Case discussed with Dr. Flores. Problems: Subjective 24 Hr Interval Summary Free Text/Dictation Patient remains hemodynamically stable. There is no reported bleeding. Hemoglobin remained stable today. No complaints of chest pain, shortness of breath, nausea, vomiting. Having mild tenderness to abdomen Exam/Review of Systems Vital Signs Vitals Vital Signs Date Time Temp Pulse Resp B/P Pulse Ox O2 Delivery O2 Flow Rate FiO2 03/09/17 06:18 98.3 98 20 130/82 96 Room Air 2.0 Nasal Cannula 03/09/17 05:18 21 Exam General: Fragile female, not in any acute distress . HEENT: Normocephalic, Atraumatic, No laceration or hematoma; Eyes: PEERL, Conjunctiva clear, Anicteric sclera Neck: Supple without any lymphadenopathy, nontender, no JVD, no carotid bruits, trachea midline, no thyromegaly Cardiac: S1, S2 auscultated, regular rhythm and rate, no mumurs or gallop. There is some mild tenderness to right anterior chest wall. Pulmonary: Normal respiratory effort. Chest clear to auscultation bilaterally, no adventitious breath sounds GI: With mild tenderness to upper quadrant. Otherwise soft, non- distended, no masses, no rebound tenderness or guarding. Bowel sounds active on all four quadrants Genitourinary: Deferred Extremities: No cyanosis, clubbing, or edema. Pulses [2+] bilaterally. Full ROM on all four extremities. No focal weakness appreciated. Neurologic: Alert to person, place, time, and situation. Affect appropriate, intact sensation. Skin: Clean,dry, and intact. No ecchymosis, no rashes, or lesions Results Result Diagram: 03/09/17 0503/09/1720 Results 24 hrs Laboratory Tests Test 03/08/17 11:18 03/09/17 05:20 Lactic Acid Level 1.8 White Blood Count 29.6 H Red Blood Count 3.88 #L Hemoglobin 11.3 #L Hematocrit 34.3 L Mean Corpuscular Volume 88.4 Mean Corpuscular Hemoglobin 29.1 Mean Corpuscular Hemoglobin Concent 32.9 Red Cell Distribution Width 15.4 H Platelet Count 462 #H Mean Platelet Volume 10.8 H Neutrophils % 89.8 H Lymphocytes % 4.5 L Monocytes % 4.0 Eosinophils % 0.1 Basophils % 0.3 Nucleated Red Blood Cells % 0.0 Neutrophils # 26.6 H Lymphocytes # 1.3 Monocytes # 1.2 H Eosinophils # 0.0 Basophils # 0.1 Nucleated Red Blood Cells # 0.0 Sodium Level 139 Potassium Level 4.0 Chloride Level 101 Carbon Dioxide Level 24 Anion Gap 18 H Blood Urea Nitrogen 20 Creatinine 0.89 Glucose Level 118 Hemoglobin A1c 5.3 Calcium Level 8.6 Phosphorus Level 3.5 Magnesium Level 1.6 L Total Bilirubin 0.2 Direct Bilirubin 0.00 Indirect Bilirubin 0.2 Aspartate Amino Transf (AST/SGOT) 21 Alanine Aminotransferase (ALT/SGPT) 21 Alkaline Phosphatase 85 Total Protein 6.2 # Albumin 3.2 L Globulin 3.00 Albumin/Globulin Ratio 1.06 Triglycerides Level 100 Cholesterol Level 110 LDL Cholesterol, Calculated 45 HDL Cholesterol 45 Cholesterol/HDL Ratio 2.4 Thyroid Stimulating Hormone (TSH) 4.540 Medications Medications Current Medications Amlodipine Besylate (Norvasc) 5 mg DAILY PO ; Start 03/09/17 at 09:00 Atorvastatin Calcium (Lipitor) 40 mg QHS PO Last administered on 03/08/17 22:52 ; Admin Dose 40 MG; Start 03/08/17 at 21:00 Cyclobenzaprine HCl (Flexeril) 10 mg Q8 PRN PO MUSCLE SPASMS Last administered on 03/08/17 22:50; Admin Dose 10 MG; Start 03/08/17 at 11:00 Docusate Sodium (Colace) 200 mg BID PO Last administered on 03/08/17 22:51; Admin Dose 200 MG; Start 03/08/17 at 21:00 Metoprolol Succinate (Toprol Xl) 25 mg DAILY PO ; Start 03/09/17 at 09:00 Senna (Senokot) 1 tab BID PO Last administered on 03/08/17 22:52; Admin Dose 1 TAB; Start 03/08/17 at 21:00 Losartan Potassium (Cozaar) 100 mg DAILY PO ; Start 03/09/17 at 09:00 Ondansetron HCl (Zofran Inj) 4 mg Q6H PRN IV NAUSEA AND/OR VOMITING; Start 03/08 at 11:00 Acetaminophen (Tylenol Tab) 650 mg Q6H PRN PO PAIN LEVEL 1-3 OR FEVER; Start at 11:00 Acetaminophen (Tylenol Supp) 650 mg Q6H PRN RI PAIN LEVEL 1-3 OR FEVER; Start 03/08/17 at 11:00 Acetaminophen/ Hydrocodone Bitart ([place] (5/325)) 1 tab Q6H PRN PO MODERATE PAIN LEVEL 4-6 Last administered on 03/09/17 05:22; Admin Dose 1 TAB; Start 03/08 at 11:00 Docusate Sodium (Colace) 100 mg Q12H PRN PO CONSTIPATION; Start 03/08/17 at 11: 00 Famotidine 20 mg 20 mg HS IV Last administered on 03/08/17 22:50; Admin Dose 20 MG; Start 03/08/17 at 21:00 Ceftriaxone Sodium (Rocephin) 50 ml @ 100 mls/hr Q24H IVPB Last administered on 03/08/17 12:02; Admin Dose 100 MLS/HR; Start 03/08/17 at 11:30 Hydralazine HCl (Apresoline) 10 mg Q6H PRN IV SBP>160; Start 03/08/17 at 11:30 Hydrochlorothiazide (Hydrochlorothiazide) 12.5 mg DAILY PO ; Start 03/09/17 at 09 :00 Nitroglycerin (Nitroglycerin (Sl Tab) 0.4 Mg) 1 tab Q5M PRN SL CHEST PAIN; Start 03/08/17 at 12:30 Hydromorphone HCl 1 mg 1 mg Q4H PRN IV PAIN Last administered on 03/09/17 03:32 ; Admin Dose 1 MG; Start 03/08/17 at 15:00 Sodium Chloride (NS) 1,000 ml @ 75 mls/hr [id number] IV Last administered on 01:47; Admin Dose 75 MLS/HR; Start 03/09/17 at 01:37 MARIAMA TORRES NP Mar 09, 2017 09:07
--- NOTE | 2017-03-09 09:34 | PN ---
Date/Time of Note Date/Time of Note DATE: 03/09/17 TIME: 09:32 Assessment/Plan Lines/Catheters IV [facility]ter [facility] (from [facility]): Saline Lock Assessment/Plan Assessment/Plan 61-year-old female status post fall 3 weeks ago with multiple rib fractures, hemopneumothorax, minimal pneumoperitoneum, free abdominal fluid * The small amount of pneumoperitoneum is likely secondary to the hemopneumothorax and rib fractures which has tracked into the abdomen. Patient also likely has some hemoperitoneum which is most probably accounting for her abdominal pain. My suspicion for intestinal injury is low however, cannot be completely ruled out * Continue n.p.o., pain control, bedrest, serial CBCs * Thoracic surgery evaluation noted * Pain control for rib fractures. Oxygen support. Incentive spirometry. * Will repeat the CT of the abdomen and pelvis with oral contrast to further evaluate for possible intestinal injury. * Okay for transfer to telemetry from general surgery standpoint I discussed the above with the primary care team. Further recommendations will be made based on patient's clinical course. Subjective 24 Hr Interval Summary Complaining of some upper abdominal pain. Otherwise hemodynamically stable. Afebrile. Exam/Review of Systems Vital Signs Vitals Vital Signs Date Time Temp Pulse Resp B/P Pulse Ox O2 Delivery O2 Flow Rate FiO2 03/09/17 06:18 98.3 98 20 130/82 96 Room Air 2.0 Nasal Cannula 03/09/17 05:18 21 Exam Free Text/Dictation GENERAL: Awake, alert, oriented x 3. No acute distress. Sitting up in bed. CARDIOVASCULAR: S1S2, regular rate and rhythm. CHEST WALL: Tenderness of right chest wall RESPIRATORY: Clear to auscultation bilaterally ABDOMEN: Mild upper abdominal tenderness to palpation. There is no signs of diffuse peritonitis. EXTREMITIES: Free range of motion x 4. No cyanosis, edema, or clubbing. Results Result Diagram: 03/09/1751903/09/1720 TYLER KENNY MD Mar 09, 2017 09:34
[2017-03-09] MEDS ORDERED: CYCLOBENZAPRINE 10 MG TAB PO PRN (12:00)
[2017-03-09] MEDS: DOCUSATE SODIUM 100 MG CAP PO SCH ×2 (12:41→20:50)
[2017-03-09] MEDS: METOPROLOL (XL) 25 MG TAB PO SCH (12:41)
[2017-03-09] MEDS: CEFTRIAXONE 1 GM/50 ML (PMX) 50 ML IVPB SCH (15:29)
[2017-03-09] MEDS ORDERED: IOHEXOL 14.3 MG(I)/ML (ADULT) BTL PO ONE (17:00)
--- NOTE | 2017-03-09 19:21 | PN ---
Date/Time of Note Date/Time of Note DATE: 03/09/17 TIME: 19:19 Assessment/Plan Lines/Catheters IV Catheter Type (from Nrsg): Saline Lock Knight in Place (from Nrsg): No Assessment/Plan Chief Complaint/Hosp Course Status post fall Multiple right-sided rib fracture Small apical and pleural effusion CXR IMPRESSION: 1. Small right apical pneumothorax, likely not significantly changed compared to CT of 03/08/2017, allowing for differences in technique. 2. Small-moderate pleural effusion with adjacent atelectasis, stable to slightly increased compared to prior CT. 3. Increased left basilar atelectasis. 4. Multiple right-sided rib fractures, better demonstrated on CT of 03/08/2017. 5. Thoracic aortic atherosclerotic disease. Plan We will monitor the pleural effusion if the effusion does not improve patient may need VATS and evacuation of effusion which is probably a hemothorax Problems: Subjective 24 Hr Interval Summary Constitutional: BM, improved Pain Control: mild Exam/Review of Systems Vital Signs Vitals Vital Signs Date Time Temp Pulse Resp B/P Pulse Ox O2 Delivery O2 Flow Rate FiO2 03/09/17 16:30 107 03/09/17 15:45 2.0 03/09/17 15:43 98.8 18 115/53 96 03/09/17 12:42 Nasal Cannula 03/09/17 05:18 21 Exam ENMT: No intubated, No mucosa pink and moist, No nl external ears & nose, No nl lips & teeth, No nl nasal mucosa & septum, No other, No tympanic membranes Neck: non-tender, supple Respiratory: clear to auscultation, normal air movement Cardiovascular: nl pulses, regular rate and rhythm Gastrointestinal: nl liver, spleen, non-tender, soft Results Result Diagram: 03/09/1751903/09/17519 NADIR JACKMAN MD Mar 09, 2017 19:21
[2017-03-09] MEDS: FAMOTIDINE 20 MG INJ IV SCH (20:50)
[2017-03-09] MEDS: ATORVASTATIN 40 MG TAB PO SCH (20:50)
--- NOTE | 2017-03-09 21:32 | RADRPT ---
Echocardiogram Report Patient Name: LIBERTAD FERNANDEZ Gender: Female Date: 1955 Study Date: 09-Mar-2017 [place] Worker: Marisol Farley RDCS Location: 3 Ref. Physician: MARIAMA TORRES Quality: Adequate Procedures: Transthoracic echocardiogram with complete 2D, M-Mode, and doppler examination. Indications: hemothorax. 2D/M Mode Doppler Measurement Value Normal Ranges Measurement Value Normal Ranges LVIDd 2D 2.9 3.5 - 5.6 cm AV Peak Amrit 2.1 m/sec LVIDs 2D 1.6 2.1 - 4.1 cm AV Peak PG 17.1 mmHg LVPWd 2D 1.1 0.6 - 1.1 cm LVOT Peak Amrit 1.6 m/sec IVSd 2D 1.1 0.6 - 1.1 cm LVOT Peak PG 9.7 mmHg AoR Diam 2D 2.6 2.0 - 3.7 cm MV E Peak Amrit 0.7 m/sec EDV 2D 30.9 cm3 MV A Peak Amrit 1.2 m/sec ESV 2D 4.2 cm3 MV E/A 0.6 LA Dimen 2D 3.2 2.3 - 4.0 cm MV Decel Time 189 msec MV Decel Barber 4 MV E/A 0.6 TR Peak Amrit 3.0 m/sec TR Peak PG 37.0 mmHg RVSP 40.0 mmHg Findings Left Ventricle: Normal left ventricular systolic function. Normal left ventricular cavity size. Ejection fraction is visually estimated at 6570 %. Tissue Doppler/Mitral Doppler indices are consistent with impaired relaxation (Stage I diastolic dysfunction). Right Ventricle: Normal right ventricular size. Normal right ventricular systolic function. Left Atrium: The left atrium is normal in size. Right Atrium: The right atrium is normal in size. Mitral Valve: Normal appearance and function of the mitral valve with trace physiologic regurgitation. Aortic Valve: Normal appearance of the aortic valve. No significant aortic stenosis or insufficiency. Tricuspid Valve: Normal appearance of the tricuspid valve. Estimated peak PA systolic pressure 40 mmHg. There is mild tricuspid regurgitation. Pulmonic Valve: Pulmonic valve not well visualized. Pericardium: Normal pericardium with no significant pericardial effusion. Aorta: Normal aortic root. IVC: Normal size and normal respiratory collapse consistent with normal right atrial pressure. Conclusions 1.The left ventricle is normal in size and systolic function. 2.Estimated left ventricular ejection fraction of 65-70%. 3.Grade 1 diastolic dysfunction. Electronically Signed By: Jim Rivera 09-Mar-2017 21:31:30 -0700 Patient Name: LIBERTAD FERNANDEZ Study Date: 09-Mar-[id number]
[2017-03-09] MEDS ORDERED: SOD CHLORIDE 0.9% 100 ML ONE (22:23)
[2017-03-09] MEDS ORDERED: IODIXANOL LOCM 100 ML BTL ONE (22:23)
[2017-03-10] VITALS (12 sets, daily range): BP systolic 94–112; BP diastolic 52–56; PULSE 100–118; RESP 16–18
--- NOTE | 2017-03-10 00:03 | RADRPT ---
PROCEDURE: CT Abdomen and pelvis with contrast. CLINICAL INDICATION: Abdominal pain. TECHNIQUE: CT scan of the abdomen and pelvis with contrast was performed on a multi-detector high -resolution CT scanner. The patient was scanned following the uncomplicated administration of 80 cc of Visipaque 320 intravenous contrast. Coronal and sagittal reformatted images were obtained from the axial source images. Images were reviewed on a high-resolution PACS workstation. One or more of the following dose reduction techniques were used: - Automated exposure control. - Adjustment of the mA and/or kV according to patient size. - Use of iterative reconstruction technique. Exam CTD/vol = 7.19 mGy. Total exam DLP = 362.66 mGy-cm. COMPARISON: 03/08/2017. FINDINGS: Evaluation of the lung bases demonstrates moderate and small left-sided pleural effusion with underl karina atelectasis. There is a small right inferior pneumothorax. Abdomen: The liver is normal in size. There is a small cyst within the left lobe of the liver. Th ere is no dilatation of the biliary tree. The gallbladder is not distended. The spleen and pancrea s are within normal limits. There is nodular thickening of bilateral adrenal glands with a nodule w ithin the left adrenal gland measuring 2.1 x 1.4 cm. Bilateral kidneys are normal in size with symme tric enhancement. There is no focal mass, hydronephrosis or hydroureter. There is no retroperitone al adenopathy. The abdominal aorta is of normal caliber with scattered atherosclerotic calcificatio ns. Oral contrast reaches the descending colon. There is no bowel obstruction or free air. A normal ap pendix is identified. There is no diverticulosis or diverticulitis. There is mild perihepatic and perisplenic free fluid. Pelvis: The bladder is unremarkable. The uterus and adnexa are within normal limits. There is no significant pelvic adenopathy. Evaluation of the osseous structures demonstrates fractures of the right fifth through ninth ribs. There is a mild compression deformity of the T12 vertebral body with up to 30% loss in vertebral bod y height. IMPRESSION: Multiple right-sided rib fractures and small right basilar pneumothorax, decreased compared with 09/2016. Moderate right and small left-sided pleural effusions with underlying atelectasis, new on the left. Nodular thickening of bilateral adrenal glands with a left adrenal nodule measuring 2.1 x 1.4 cm. Mild abdominal and pelvic free fluid, unchanged. Mild compression deformity T12, unchanged from 03/08/2017 although increased compared with 7. .Evan Brown MD, MD Date Time Electronically viewed and signed by .Evan Brown MD, on 03/10/2017 00:03 .T/
[2017-03-10] MEDS: ALBUTEROL/IPRATROPIUM (NEB) 3 ML AMP HHN SCH ×6 (01:55→20:34)
[2017-03-10] MEDS: SOD CHLORIDE 0.9% 1,000 ML IV SCH ×2 (04:17→18:13)
[2017-03-10 07:20] LABS: ABNORMAL IP MESSAGE 1; BASOPHIL # 0.1 10^3/ul (0.0-0.1); BASOPHILS % 0.3 % (0.0-2.0); EOSINOPHILS # 0.2 10^3/ul (0.0-0.5); EOSINOPHILS % 0.9 % (0.0-7.0); HEMATOCRIT 31.2 % (37.0-47.0); HEMOGLOBIN 9.8 g/dl (12.0-16.0); LYMPHOCYTES # 1.5 10^3/ul (0.8-2.9); LYMPHOCYTES % 6.3 % (15.0-51.0); MEAN CORPUSCULAR HEMOGLOBIN 27.9 pg (29.0-33.0); MEAN CORPUSCULAR HGB CONC 31.4 g/dl (32.0-37.0); MEAN CORPUSCULAR VOLUME 88.9 fl (82.0-101.0); MEAN PLATELET VOLUME 10.9 fl (7.4-10.4); MONOCYTE # 0.8 10^3/ul (0.3-0.9); MONOCYTES % 3.4 % (0.0-11.0); NEUTROPHIL # 20.5 10^3/ul (1.6-7.5); PLATELET COUNT 436 10^3/UL (140-415); RED BLOOD COUNT 3.51 10^6/ul (4.20-5.40); RED CELL DISTRIBUTION WIDTH 15.6 % (11.5-14.5); WHITE BLOOD COUNT 23.6 10^3/ul (4.8-10.8)
[2017-03-10 07:24] LABS: CALCIUM 8.3 mg/dl (8.4-10.2); CREATININE 0.85 mg/dl (0.44-1.00); MAGNESIUM 2.3 mg/dl (1.7-2.5); POSITIVE DIFF @See below; POTASSIUM 3.1 mmol/L (3.5-5.1)
[2017-03-10] MEDS: DOCUSATE SODIUM 100 MG CAP PO SCH ×4 (09:29→21:00)
[2017-03-10] MEDS: HYDROCHLOROTHIAZIDE 12.5 MG CAP PO SCH (09:30)
[2017-03-10] MEDS: AMLODIPINE 5 MG TAB PO SCH (09:30)
[2017-03-10] MEDS: SENNA TAB PO SCH ×2 (09:30→21:00)
[2017-03-10] MEDS: METOPROLOL (XL) 25 MG TAB PO SCH (09:31)
[2017-03-10] MEDS: LOSARTAN 50 MG TAB PO SCH (09:31)
--- NOTE | 2017-03-10 09:35 | PN ---
Date/Time of Note Date/Time of Note DATE: 03/10/17 TIME: 09:33 Assessment/Plan Lines/Catheters IV Catheter Type (from Nrs): Peripheral IV Knight in Place (from Nrs): No Assessment/Plan Assessment/Plan 61-year-old female status post fall 3 weeks ago with multiple rib fractures, hemopneumothorax, minimal pneumoperitoneum, free abdominal fluid * CT scan reviewed. Pneumoperitoneum resolved. No extravasation of contrast to indicate intestinal injury. Abdominal symptoms likely secondary to a small amount of hemoperitoneum. * Hemoglobin 9.4 today. Consider transfusion if hemoglobin falls below 11. * Continue incentive spirometry * Advance diet as tolerated I discussed the above with the primary care team. Further recommendations will be made based on patient's clinical course. Subjective 24 Hr Interval Summary Complains of mild abdominal discomfort. Denies nausea/vomiting. No bowel movement. Denies shortness of breath. Afebrile. Exam/Review of Systems Vital Signs Vitals Vital Signs Date Time Temp Pulse Resp B/P Pulse Ox O2 Delivery O2 Flow Rate FiO2 03/10/17 08:37 108 03/10/17 07:18 98.9 17 112/56 94 03/10/17 05:26 21 03/09/17 15:45 2.0 03/09/17 12:42 Nasal Cannula Intake and Output 03/09/17 03/09/17 03/10/17 15:00 23:00 07:00 Intake Total 650 ml 940 ml Balance 650 ml 940 ml Exam Free Text/Dictation GENERAL: Awake, alert, oriented x 3. No acute distress. Sitting up in bed. CARDIOVASCULAR: S1S2, regular rate and rhythm. CHEST WALL: Tenderness of right chest wall RESPIRATORY: Clear to auscultation bilaterally ABDOMEN: Mild upper abdominal tenderness to palpation. There is no signs of diffuse peritonitis. EXTREMITIES: Free range of motion x 4. No cyanosis, edema, or clubbing. Results Result Diagram: 03/10/17 0608 03/10/17 0608 Procedures Procedures PROCEDURE: CT Abdomen and pelvis with contrast. CLINICAL INDICATION: Abdominal pain. TECHNIQUE: CT scan of the abdomen and pelvis with contrast was performed on a multi-detector high-resolution CT scanner. The patient was scanned following the uncomplicated administration of 80 cc of Visipaque 320 intravenous contrast. Coronal and sagittal reformatted images were obtained from the axial source images. Images were reviewed on a high-resolution PACS workstation. One or more of the following dose reduction techniques were used: - Automated exposure control. - Adjustment of the mA and/or kV according to patient size. - Use of iterative reconstruction technique. Exam CTD/vol = 7.19 mGy. Total exam DLP = 362.66 mGy-cm. COMPARISON: 03/08/2017. FINDINGS: Evaluation of the lung bases demonstrates moderate and small left-sided pleural effusion with underlying atelectasis. There is a small right inferior pneumothorax. Abdomen: The liver is normal in size. There is a small cyst within the left lobe of the liver. There is no dilatation of the biliary tree. The gallbladder is not distended. The spleen and pancreas are within normal limits. There is nodular thickening of bilateral adrenal glands with a nodule within the left adrenal gland measuring 2.1 x 1.4 cm. Bilateral kidneys are normal in size with symmetric enhancement. There is no focal mass, hydronephrosis or hydroureter. There is no retroperitoneal adenopathy. The abdominal aorta is of normal caliber with scattered atherosclerotic calcifications. Oral contrast reaches the descending colon. There is no bowel obstruction or free air. A normal appendix is identified. There is no diverticulosis or diverticulitis. There is mild perihepatic and perisplenic free fluid. Pelvis: The bladder is unremarkable. The uterus and adnexa are within normal limits. There is no significant pelvic adenopathy. Evaluation of the osseous structures demonstrates fractures of the right fifth through ninth ribs. There is a mild compression deformity of the T12 vertebral body with up to 30% loss in vertebral body height. IMPRESSION: Multiple right-sided rib fractures and small right basilar pneumothorax, decreased compared with 03/08/2017. Moderate right and small left-sided pleural effusions with underlying atelectasis, new on the left. Nodular thickening of bilateral adrenal glands with a left adrenal nodule measuring 2.1 x 1.4 cm. Mild abdominal and pelvic free fluid, unchanged. Mild compression deformity T12, unchanged from 03/08/2017 although increased compared with 12/14/2016. .Evan Brown MD, MD Date Time Electronically viewed and signed by .Evan Brown MD, on 03/10/2017 00:03 .T/ CC: TYLER KENNY MD, MICHAEL A. MD Mar 10, 2017 09:35
[2017-03-10] MEDS ORDERED: POTASSIUM CHLORIDE (SR) 20 MEQ TAB PO STA (09:42)
--- NOTE | 2017-03-10 10:16 | PN ---
Date/Time of Note Date/Time of Note DATE: 03/10/17 TIME: 10:07 Assessment/Plan VTE Prophylaxis VTE Prophylaxis Intervention: ambulation, SCD's Lines/Catheters IV Catheter Type (from Nrs): Peripheral IV Urinary Cath still in place: No Assessment/Plan Chief Complaint/Hosp Course 1. Multiple rib fractures with very small right anterior hemopneumothorax. Remains hemodynamically stable. -continue with oxygen, bronchodilators, incentive spirometry and pain medications. -CT surgery and pulmonary eval appreciated 2. Small-moderate pleural effusion with adjacent atelectasis. Slightly increased compared to prior CT. -CT surgery on board and recommend monitoring and reevaluate for possible VATS if indicated. -We will repeat CT Chest 3. Abdominal pain with small hemoperitoneum and pneumoperitoneum RUQ. Resolved -Status post surgery evaluation. Diet has been advanced. 4. Leukocytosis with possible urinary tract infection. UA with 2+ leukocyte esterase and bacteria. WBC count improving. -Continue ceftriaxone. Follow-up cultures. 5. Thrombocytosis, likely dehydration. Improving. -Continue IV fluids 6. Acute kidney injury, likely secondary to dehydration. Resolved with IV fluids. -We will avoid nephrotoxins and monitor renal function closely. 7. Mildly elevated lipase, likely concurrent. Low possibility for pancreatitis. -Monitor level and intervene as indicated. 8. Essential hypertension. Stable. -Continue antihypertensives. Will adjust as indicated. 9. Hypercholesterolemia -On statin. Lipid panel stable. 10. Chronic pain with multiple thoracic spinal compression fractures. -Continue home medication and PRN analgesics. 11.Hypokalemia.Replete and monitor. DVT prophylaxis: SCDs PUD prophylaxis: Pepcid. Plan: Overall, patient feels improvement in pain status. Repeat abdominal CT with slightly increased pleural effusion. will repeat CT chest and defer CT surgery further management. Case discussed with Dr. Flores. Problems: Subjective 24 Hr Interval Summary Free Text/Dictation Patient has been started on diet and is tolerating well. No fever,chills. has been having chest wall pain with occasional cough and movement. Exam/Review of Systems Vital Signs Vitals Vital Signs Date Time Temp Pulse Resp B/P Pulse Ox O2 Delivery O2 Flow Rate FiO2 03/10/17 08:37 108 03/10/17 07:18 98.9 17 112/56 94 03/10/17 05:26 21 03/09/17 15:45 2.0 03/09/17 12:42 Nasal Cannula Intake and Output 03/09/17 03/09/17 03/10/17 15:00 23:00 07:00 Intake Total 650 ml 940 ml Balance 650 ml 940 ml Exam General: Fragile female, not in any acute distress . HEENT: Normocephalic, Atraumatic, No laceration or hematoma; Eyes: PEERL, Conjunctiva clear, Anicteric sclera Neck: Supple without any lymphadenopathy, nontender, no JVD, no carotid bruits, trachea midline, no thyromegaly Cardiac: S1, S2 auscultated, regular rhythm and rate, no mumurs or gallop. There is some mild tenderness to right anterior chest wall especially with patient cough. Pulmonary: Normal respiratory effort. Chest clear to auscultation bilaterally, no adventitious breath sounds GI: soft, non- distended, no masses, no rebound tenderness or guarding. Bowel sounds active on all four quadrants Genitourinary: Deferred Extremities: No cyanosis, clubbing, or edema. Pulses [2+] bilaterally. Full ROM on all four extremities. No focal weakness appreciated. Neurologic: Alert to person, place, time, and situation. Affect appropriate, intact sensation. Skin: Clean,dry, and intact. No ecchymosis, no rashes, or lesions Results Result Diagram: 03/10/17 0608 03/10/17 0608 Results 24 hrs Laboratory Tests Test 03/10/17 06:08 White Blood Count 23.6 #H Red Blood Count 3.51 L Hemoglobin 9.8 L Hematocrit 31.2 L Mean Corpuscular Volume 88.9 Mean Corpuscular Hemoglobin 27.9 L Mean Corpuscular Hemoglobin Concent 31.4 L Red Cell Distribution Width 15.6 H Platelet Count 436 H Mean Platelet Volume 10.9 H Neutrophils % 87.0 H Lymphocytes % 6.3 L Monocytes % 3.4 Eosinophils % 0.9 Basophils % 0.3 Nucleated Red Blood Cells % 0.0 Neutrophils # 20.5 H Lymphocytes # 1.5 Monocytes # 0.8 Eosinophils # 0.2 Basophils # 0.1 Nucleated Red Blood Cells # 0.0 Sodium Level 139 Potassium Level 3.1 L Chloride Level 104 Carbon Dioxide Level 24 Anion Gap 14 Blood Urea Nitrogen 17 Creatinine 0.85 Glucose Level 75 # Calcium Level 8.3 L Magnesium Level 2.3 Medications Medications Current Medications Amlodipine Besylate (Norvasc) 5 mg DAILY PO Last administered on 03/10/17 09:30 ; Admin Dose 5 MG; Start 03/09/17 at 09:00 Atorvastatin Calcium (Lipitor) 40 mg QHS PO Last administered on 03/09/17 20:50 ; Admin Dose 40 MG; Start 03/08/17 at 21:00 Docusate Sodium (Colace) 200 mg BID PO Last administered on 03/10/17 09:29; Admin Dose 200 MG; Start 03/08/17 at 21:00 Metoprolol Succinate (Toprol Xl) 25 mg DAILY PO Last administered on 03/10/17 09:31; Admin Dose 25 MG; Start 03/09/17 at 09:00 Senna (Senokot) 1 tab BID PO Last administered on 03/10/17 09:30; Admin Dose 1 TAB; Start 03/08/17 at 21:00 Losartan Potassium (Cozaar) 100 mg DAILY PO Last administered on 03/10/17 09:31 ; Admin Dose 100 MG; Start 03/09/17 at 09:00 Ondansetron HCl (Zofran Inj) 4 mg Q6H PRN IV NAUSEA AND/OR VOMITING; Start 03/08 at 11:00 Acetaminophen (Tylenol Tab) 650 mg Q6H PRN PO PAIN LEVEL 1-3 OR FEVER; Start at 11:00 Acetaminophen (Tylenol Supp) 650 mg Q6H PRN [place] PAIN LEVEL 1-3 OR FEVER; Start 03/08/17 at 11:00 Acetaminophen/ Hydrocodone Bitart ([place] (5/325)) 1 tab Q6H PRN PO MODERATE PAIN LEVEL 4-6 Last administered on 03/09/17 10:36; Admin Dose 1 TAB; Start 03/08 at 11:00 Docusate Sodium (Colace) 100 mg Q12H PRN PO CONSTIPATION; Start 03/08/17 at 11: 00 Famotidine 20 mg 20 mg HS IV Last administered on 03/09/17 20:50; Admin Dose 20 MG; Start 03/08/17 at 21:00 Ceftriaxone Sodium (Rocephin) 50 ml @ 100 mls/hr Q24H IVPB Last administered on 03/09/17 15:29; Admin Dose 100 MLS/HR; Start 03/08/17 at 11:30 Hydralazine HCl (Apresoline) 10 mg Q6H PRN IV SBP>160; Start 03/08/17 at 11:30 Hydrochlorothiazide (Hydrochlorothiazide) 12.5 mg DAILY PO Last administered on 03/10/17 09:30; Admin Dose 12.5 MG; Start 03/09/17 at 09:00 Nitroglycerin (Nitroglycerin (Sl Tab) 0.4 Mg) 1 tab Q5M PRN SL CHEST PAIN; Start 03/08/17 at 12:30 Hydromorphone HCl 1 mg 1 mg Q4H PRN IV PAIN Last administered on 03/09/17 23:21 ; Admin Dose 1 MG; Start 03/08/17 at 15:00 Sodium Chloride (NS) 1,000 ml @ 75 mls/hr [id number] IV Last administered on 15:23; Admin Dose 75 MLS/HR; Start 03/09/17 at 01:37 Cyclobenzaprine HCl (Flexeril) 10 mg Q8H PRN PO MUSCLE SPASMS; Start 03/09/17 at 12:00 Docusate Sodium (Colace) 100 mg TID PO ; Start 03/10/17 at 13:00; Status MARIAMA DISLA NP Mar 10, 2017 10:16
[2017-03-10] MEDS: HYDROmorphONE 1 MG/ML SYG IV PRN ×3 (10:19→22:13)
[2017-03-10] MEDS: CEFTRIAXONE 1 GM/50 ML (PMX) 50 ML IVPB SCH (12:15)
--- NOTE | 2017-03-10 14:23 | CONS ---
Date/Time of Note Date/Time of Note DATE: 03/10/17 TIME: 14:21 Assessment/Plan Assessment/Plan Additional Assessment/Plan Chest x-ray was reviewed from yesterday which is showing very minimal right lower lobe atelectatic changes. No pneumothorax seen. Assessment and recommendations; 1. Patient admitted with a fall resulting in right-sided rib fractures with a very small right anterior hemopneumothorax. Continue current treatment. Consider discharge. Consultation Date/Type/Reason Admit Date/Time Mar 09, 2017 at 10:16 Initial Consult Date 03/08/17 Type of Consultation: Pulmonary 24 HR Interval Summary Free Text/Dictation Patient's condition is stable. Complains of very mild right upper quadrant abdominal pain. Has any shortness of breath, coughing, hemoptysis or sputum production. Next General exam; elderly female, awake and alert. Currently in no distress. Exam/Review of Systems Vital Signs Vitals Vital Signs Date Time Temp Pulse Resp B/P Pulse Ox O2 Delivery O2 Flow Rate FiO2 03/10/17 14:00 108 22 94 21 03/10/17 11:12 98.2 109/55 03/09/17 15:45 2.0 03/09/17 12:42 Nasal Cannula Intake and Output 03/09/17 03/09/17 03/10/17 15:00 23:00 07:00 Intake Total 650 ml 940 ml Balance 650 ml 940 ml Exam HEENT exam; supple neck, no JVD. No lymphadenopathy. Midline trachea. No thyromegaly. Patient is edentulous and wears dentures. Chest exam; clear to auscultation. There is mild tenderness involving the right lateral chest wall. S1-S2 audible, no murmurs. Regular rhythm. Abdomen exam; soft, very minimal right upper quadrant tenderness. Bowel sounds audible. No organomegaly. Extremity exam; no peripheral edema. [employer] RN exam; no focal motor deficit. Results Result Diagram: 03/10/17 0608 03/10/17 0608 Results 24 hrs Laboratory Tests Test 03/10/17 06:08 White Blood Count 23.6 #H Red Blood Count 3.51 L Hemoglobin 9.8 L Hematocrit 31.2 L Mean Corpuscular Volume 88.9 Mean Corpuscular Hemoglobin 27.9 L Mean Corpuscular Hemoglobin Concent 31.4 L Red Cell Distribution Width 15.6 H Platelet Count 436 H Mean Platelet Volume 10.9 H Neutrophils % 87.0 H Lymphocytes % 6.3 L Monocytes % 3.4 Eosinophils % 0.9 Basophils % 0.3 Nucleated Red Blood Cells % 0.0 Neutrophils # 20.5 H Lymphocytes # 1.5 Monocytes # 0.8 Eosinophils # 0.2 Basophils # 0.1 Nucleated Red Blood Cells # 0.0 Sodium Level 139 Potassium Level 3.1 L Chloride Level 104 Carbon Dioxide Level 24 Anion Gap 14 Blood Urea Nitrogen 17 Creatinine 0.85 Glucose Level 75 # Calcium Level 8.3 L Magnesium Level 2.3 Lipase 22 L Medications Medications Current Medications Amlodipine Besylate (Norvasc) 5 mg DAILY PO Last administered on 03/10/17 09:30 ; Admin Dose 5 MG; Start 03/09/17 at 09:00 Atorvastatin Calcium (Lipitor) 40 mg QHS PO Last administered on 03/09/17 20:50 ; Admin Dose 40 MG; Start 03/08/17 at 21:00 Docusate Sodium (Colace) 200 mg BID PO Last administered on 03/10/17 09:29; Admin Dose 200 MG; Start 03/08/17 at 21:00 Metoprolol Succinate (Toprol Xl) 25 mg DAILY PO Last administered on 03/10/17 09:31; Admin Dose 25 MG; Start 03/09/17 at 09:00 Senna (Senokot) 1 tab BID PO Last administered on 03/10/17 09:30; Admin Dose 1 TAB; Start 03/08/17 at 21:00 Losartan Potassium (Cozaar) 100 mg DAILY PO Last administered on 03/10/17 09:31 ; Admin Dose 100 MG; Start 03/09/17 at 09:00 Ondansetron HCl (Zofran Inj) 4 mg Q6H PRN IV NAUSEA AND/OR VOMITING; Start 03/08 at 11:00 Acetaminophen (Tylenol Tab) 650 mg Q6H PRN PO PAIN LEVEL 1-3 OR FEVER; Start at 11:00 Acetaminophen (Tylenol Supp) 650 mg Q6H PRN [place] PAIN LEVEL 1-3 OR FEVER; Start 03/08/17 at 11:00 Acetaminophen/ Hydrocodone Bitart ([place] (5/325)) 1 tab Q6H PRN PO MODERATE PAIN LEVEL 4-6 Last administered on 03/09/17 10:36; Admin Dose 1 TAB; Start 03/08 at 11:00 Docusate Sodium (Colace) 100 mg Q12H PRN PO CONSTIPATION; Start 03/08/17 at 11: 00 Famotidine 20 mg 20 mg HS IV Last administered on 03/09/17 20:50; Admin Dose 20 MG; Start 03/08/17 at 21:00 Ceftriaxone Sodium (Rocephin) 50 ml @ 100 mls/hr Q24H IVPB Last administered on 03/10/17 12:15; Admin Dose 100 MLS/HR; Start 03/08/17 at 11:30 Hydralazine HCl (Apresoline) 10 mg Q6H PRN IV SBP>160; Start 03/08/17 at 11:30 Hydrochlorothiazide (Hydrochlorothiazide) 12.5 mg DAILY PO Last administered on 03/10/17 09:30; Admin Dose 12.5 MG; Start 03/09/17 at 09:00 Nitroglycerin (Nitroglycerin (Sl Tab) 0.4 Mg) 1 tab Q5M PRN SL CHEST PAIN; Start 03/08/17 at 12:30 Hydromorphone HCl 1 mg 1 mg Q4H PRN IV PAIN Last administered on 03/10/17 10:19 ; Admin Dose 1 MG; Start 03/08/17 at 15:00 Sodium Chloride (NS) 1,000 ml @ 75 mls/hr [id number] IV Last administered on 15:23; Admin Dose 75 MLS/HR; Start 03/09/17 at 01:37 Cyclobenzaprine HCl (Flexeril) 10 mg Q8H PRN PO MUSCLE SPASMS; Start 03/09/17 at 12:00 Docusate Sodium (Colace) 100 mg TID PO Last administered on 03/10/17 12:15; Admin Dose 100 MG; Start 03/10/17 at 13:00 VASHTI MURRAY Mar 10, 2017 14:23
[2017-03-10] MEDS: ATORVASTATIN 40 MG TAB PO SCH (21:00)
[2017-03-10] MEDS: FAMOTIDINE 20 MG INJ IV SCH (21:00)
[2017-03-11] VITALS (12 sets, daily range): BP systolic 108–123; BP diastolic 53–61; PULSE 86–99; RESP 16–18
[2017-03-11] MEDS: ALBUTEROL/IPRATROPIUM (NEB) 3 ML AMP HHN SCH ×6 (01:32→22:33)
[2017-03-11] MEDS: HYDROmorphONE 1 MG/ML SYG IV PRN ×5 (02:28→22:15)
--- NOTE | 2017-03-11 02:42 | RADRPT ---
PROCEDURE: CT Chest without contrast. CLINICAL INDICATION: Pleural effusions. Right rib fractures. TECHNIQUE: CT scan of the chest without contrast was performed on a multidetector high-resolution CT scanner. Coronal and sagittal reformatted images were obtained from the axial source images. The total exam CTDI equals 6.67 mGy and the total exam DLP equals 209.38 mGy-cm. COMPARISON: CT examination the abdomen and pelvis dated 03/09/2017. Plain film chest dated 2016 FINDINGS: Bilateral mild to moderate pleural effusions are seen with partial collapse of bilateral lower lobes . Medial left upper lobe subpleural ground-glass opacity, with similar smaller opacities seen at the bilateral anterior lungs. These findings are nonspecific. Question 10 mm nodule at the midaxillar y right lung base. This is close to a region of atelectasis and IV contrast enhanced CT examination may be of further use to distinguish a pulmonary parenchymal nodule. Nevertheless, recommend follo w-up CT chest and 3 months for further evaluation. No pneumothorax. The mediastinum is unremarkable without evidence for mass or lymphadenopathy. The vascular structur es of the mediastinum are normal in course and caliber. Aortic vascular calcifications and coronary artery calcifications are present. The heart size is mildly enlarged, with trace pericardial fluid . The axillary regions, subpectoral regions, and supraclavicular regions are all unremarkable. The kenney rrounding chest wall is unremarkable. Imaging obtained through the upper abdomen reveal a partially visualized 7 mm nodule in the left adrenal which cannot be further characterized. A larger left adr enal nodule is seen on CT examination dated 03/09/2017. There is a 7 mm likely cyst in the left hepa tic lobe. Mild ascites again seen over the liver. The surrounding osseous structures are remarkable for multiple for multiple right rib fractures, see n at the midaxillary and posterior lateral right 4th through 10th ribs. Greater than 50% loss of an terior and central C7 vertebral body and superior endplate collapse at T12 with loss of about 30% an terior and central height. These findings appear remote. No osteolytic or osteoblastic lesion is detected. IMPRESSION: 1. Bilateral mild to moderate pleural effusion with partial collapse of the bilateral lower lobes. 2. 10 mm nodule is suspected at the midaxillary right lung base, and IV contrast enhanced CT examin ation the chest may be of further use to distinguish a pulmonary parenchymal nodule and adjacent ate lectasis. 3. Nevertheless, recommend follow-up CT examination the chest in 3 months for further evaluation. 4. Ground-glass opacities in bilateral anterior lungs and at the medial aspect of the left upper lo be, otherwise nonspecific. Differential considerations include a carcinoma insitu. 5. 7 mm nodule is partially visualized at the left adrenal, and this cannot be further characterize d. 6. Multiple right rib fractures. RPTAT: [facility] Physician Loyda Date Time Electronically viewed and signed by Physician Loyda on 03/11/2017 02:41 RS/
[2017-03-11] MEDS: SOD CHLORIDE 0.9% 1,000 ML IV SCH (05:59)
[2017-03-11 06:39] LABS: BASOPHILS % 0.2 % (0.0-2.0); EOSINOPHILS # 0.5 10^3/ul (0.0-0.5); HEMATOCRIT 26.9 % (37.0-47.0); HEMOGLOBIN 8.7 g/dl (12.0-16.0); LYMPHOCYTES # 1.1 10^3/ul (0.8-2.9); LYMPHOCYTES % 6.9 % (15.0-51.0); MEAN CORPUSCULAR HEMOGLOBIN 28.2 pg (29.0-33.0); MEAN CORPUSCULAR HGB CONC 32.3 g/dl (32.0-37.0); MEAN CORPUSCULAR VOLUME 87.3 fl (82.0-101.0); MONOCYTES % 6.3 % (0.0-11.0); NEUTROPHIL # 12.8 10^3/ul (1.6-7.5); NEUTROPHILS % 82.7 % (39.0-77.0); PLATELET COUNT 399 10^3/UL (140-415); RED BLOOD COUNT 3.08 10^6/ul (4.20-5.40); RED CELL DISTRIBUTION WIDTH 15.9 % (11.5-14.5); WHITE BLOOD COUNT 15.5 10^3/ul (4.8-10.8)
[2017-03-11 07:12] LABS: CALCIUM 8.2 mg/dl (8.4-10.2); CREATININE 0.81 mg/dl (0.44-1.00); POTASSIUM 3.2 mmol/L (3.5-5.1)
[2017-03-11] MEDS: DOCUSATE SODIUM 100 MG CAP PO SCH ×6 (08:40→21:00)
[2017-03-11] MEDS: LOSARTAN 50 MG TAB PO SCH (08:42)
[2017-03-11] MEDS: HYDROCHLOROTHIAZIDE 12.5 MG CAP PO SCH (08:42)
[2017-03-11] MEDS: SENNA TAB PO SCH ×2 (08:43→20:33)
[2017-03-11] MEDS: AMLODIPINE 5 MG TAB PO SCH (08:43)
[2017-03-11] MEDS: METOPROLOL (XL) 25 MG TAB PO SCH (08:43)
--- NOTE | 2017-03-11 10:00 | PN ---
Date/Time of Note Date/Time of Note DATE: 03/11/17 TIME: 09:58 Assessment/Plan Lines/Catheters IV Catheter Type (from Nrs): Peripheral IV Knight in Place (from Nrs): No Assessment/Plan Assessment/Plan 61-year-old female status post fall 3 weeks ago with multiple rib fractures, hemopneumothorax, minimal pneumoperitoneum, free abdominal fluid * CT scan reviewed. Pneumoperitoneum resolved. No extravasation of contrast to indicate intestinal injury. Abdominal symptoms likely secondary to a small amount of hemoperitoneum. * Hemoglobin 8.7 today. Patient asymptomatic. Consider transfusion if hemoglobin falls below 7. * Continue incentive spirometry * No general surgical intervention required I discussed the above with the primary care team. Further recommendations will be made based on patient's clinical course. Subjective 24 Hr Interval Summary Complains of mild right sided chest wall pain. Tolerating regular diet. Denies nausea/vomiting. Denies shortness of breath. Afebrile. Exam/Review of Systems Vital Signs Vitals Vital Signs Date Time Temp Pulse Resp B/P Pulse Ox O2 Delivery O2 Flow Rate FiO2 03/11/17 08:23 90 03/11/17 08:02 20 93 21 03/11/17 07:25 98.4 123/61 03/09/17 15:45 2.0 03/09/17 12:42 Nasal Cannula Intake and Output 03/10/17 03/10/17 03/11/17 15:00 23:00 07:00 Intake Total 50 ml 1075 ml 690 ml Balance 50 ml 1075 ml 690 ml Exam Free Text/Dictation GENERAL: Awake, alert, oriented x 3. No acute distress. Sitting up in bed. CARDIOVASCULAR: S1S2, regular rate and rhythm. CHEST WALL: Tenderness of right chest wall RESPIRATORY: Clear to auscultation bilaterally ABDOMEN: Soft, non-tender to palpation. There is no signs of diffuse peritonitis. EXTREMITIES: Free range of motion x 4. No cyanosis, edema, or clubbing. Results Result Diagram: 03/11/17 0547 03/11/17 0547 TYLER KENNY MD Mar 11, 2017 10:00
--- NOTE | 2017-03-11 10:27 | PN ---
Date/Time of Note Date/Time of Note DATE: 03/11/17 TIME: 10:21 Assessment/Plan VTE Prophylaxis VTE Prophylaxis Intervention: contraindicated Lines/Catheters IV Catheter Type (from Nrs): Peripheral IV Urinary Cath still in place: No Assessment/Plan Problems: (1) Diastolic dysfunction Status: Chronic Comment: She has hypertension and is on appropriate medications for this. This will be continued. This is stable (2) Osteoporosis Status: Chronic Comment: She had a traumatic injury with multiple rib fractures but she also has chronic T7 and T12 fractures on imaging studies. As an outpatient she will need to start osteoporosis medications given her youth. Qualifiers: Osteoporosis type: age-related Presence of current pathological fracture: with current pathological fracture Encounter type: initial encounter Qualified Code: M80.00XA - Age-related osteoporosis with current pathological fracture, initial encounter (3) Compression fx, thoracic spine Status: Chronic Comment: As above once rib fractures is healed she will need to start on osteoporosis medications Qualifiers: Encounter type: initial encounter Fracture type: closed Qualified Code: S22.000A - Compression fx, thoracic spine, closed, initial encounter (4) Tobacco abuse Status: Chronic Comment: Strongly counseled (5) Hypokalemia Status: Acute Comment: Replace (6) UTI (urinary tract infection) Status: Acute Comment: Gamma hemolytic strep she is on antibiotics her leukocytosis is resolving Qualifiers: Urinary tract infection type: acute cystitis Hematuria presence: without hematuria Qualified Code: N30.00 - Acute cystitis without hematuria (7) Adrenal nodule Status: Chronic Comment: This was not a known phenomenon she has bilateral nodularity. While this is most likely nothing I will check to make sure she does not have hypercortisolism as this would be an issue we would treat (8) Leukocytosis Status: Acute Comment: Resolving with antibiotics and treatment of the UTI Qualifiers: Leukocytosis type: bandemia Qualified Code: D72.825 - Bandemia (9) Alcohol consumption four to six days per week Status: Chronic Comment: We will give thiamine (10) Hypertension Status: Chronic Comment: Continue on antibiotic therapy Qualifiers: Hypertension type: essential hypertension Qualified Code: I10 - Essential hypertension (11) Multiple rib fractures Status: Acute Comment: Her pain control is much better. She does not have any advancement of the complications from this fall with injury. Qualifiers: Encounter type: initial encounter Fracture type: closed Laterality: right Qualified Code: S22.41XA - Closed fracture of multiple ribs of right side, initial encounter (12) Hemopneumothorax on right Status: Acute Comment: Stable and clearing ever so slowly Subjective 24 Hr Interval Summary Free Text/Dictation Patient's condition discussed with daughter translating in Malaysian Constitutional: no complaints Respiratory: pain (Shortness of breath is better) Cardiovascular: no complaints Gastrointestinal: no complaints Genitourinary: no complaints Exam/Review of Systems Vital Signs Vitals Vital Signs Date Time Temp Pulse Resp B/P Pulse Ox O2 Delivery O2 Flow Rate FiO2 03/11/17 08:23 90 03/11/17 08:02 20 93 21 03/11/17 07:25 98.4 123/61 03/09/17 15:45 2.0 03/09/17 12:42 Nasal Cannula Intake and Output 03/10/17 03/10/17 03/11/17 15:00 23:00 07:00 Intake Total 50 ml 1075 ml 690 ml Balance 50 ml 1075 ml 690 ml Exam Constitutional: alert, oriented Neck: non-tender, supple Respiratory: clear to auscultation, normal air movement (Somewhat dull at the bases) Cardiovascular: nl pulses, regular rate and rhythm Gastrointestinal: nl liver, spleen, non-tender, soft Results Result Diagram: 03/11/17 0547 03/11/17 0547 Results 24 hrs Laboratory Tests Test 03/11/17 05:47 White Blood Count 15.5 #H Red Blood Count 3.08 L Hemoglobin 8.7 L Hematocrit 26.9 L Mean Corpuscular Volume 87.3 Mean Corpuscular Hemoglobin 28.2 L Mean Corpuscular Hemoglobin Concent 32.3 Red Cell Distribution Width 15.9 H Platelet Count 399 Mean Platelet Volume 11.0 H Neutrophils % 82.7 H Lymphocytes % 6.9 L Monocytes % 6.3 Eosinophils % 3.0 Basophils % 0.2 Nucleated Red Blood Cells % 0.0 Neutrophils # 12.8 H Lymphocytes # 1.1 Monocytes # 1.0 H Eosinophils # 0.5 Basophils # 0.0 Nucleated Red Blood Cells # 0.0 Sodium Level 141 Potassium Level 3.2 L Chloride Level 108 Carbon Dioxide Level 23 Anion Gap 13 Blood Urea Nitrogen 11 Creatinine 0.81 Glucose Level 107 Calcium Level 8.2 L Medications Medications Current Medications Amlodipine Besylate (Norvasc) 5 mg DAILY PO Last administered on 03/11/17 08:43 ; Admin Dose 5 MG; Start 03/09/17 at 09:00 Atorvastatin Calcium (Lipitor) 40 mg QHS PO Last administered on 03/10/17 21:00 ; Admin Dose 40 MG; Start 03/08/17 at 21:00 Docusate Sodium (Colace) 200 mg BID PO Last administered on 03/11/17 08:41; Admin Dose 200 MG; Start 03/08/17 at 21:00 Metoprolol Succinate (Toprol Xl) 25 mg DAILY PO Last administered on 03/11/17 08:43; Admin Dose 25 MG; Start 03/09/17 at 09:00 Senna (Senokot) 1 tab BID PO Last administered on 03/11/17 08:43; Admin Dose 1 TAB; Start 03/08/17 at 21:00 Losartan Potassium (Cozaar) 100 mg DAILY PO Last administered on 03/11/17 08:42 ; Admin Dose 100 MG; Start 03/09/17 at 09:00 Ondansetron HCl (Zofran Inj) 4 mg Q6H PRN IV NAUSEA AND/OR VOMITING; Start 03/08 at 11:00 Acetaminophen (Tylenol Tab) 650 mg Q6H PRN PO PAIN LEVEL 1-3 OR FEVER; Start at 11:00 Acetaminophen (Tylenol Supp) 650 mg Q6H PRN [place] PAIN LEVEL 1-3 OR FEVER; Start 03/08/17 at 11:00 Acetaminophen/ Hydrocodone Bitart ([place] (5/325)) 1 tab Q6H PRN PO MODERATE PAIN LEVEL 4-6 Last administered on 03/09/17 10:36; Admin Dose 1 TAB; Start 03/08 at 11:00 Docusate Sodium (Colace) 100 mg Q12H PRN PO CONSTIPATION; Start 03/08/17 at 11: 00 Famotidine 20 mg 20 mg HS IV Last administered on 03/10/17 21:00; Admin Dose 20 MG; Start 03/08/17 at 21:00 Ceftriaxone Sodium (Rocephin) 50 ml @ 100 mls/hr Q24H IVPB Last administered on 03/10/17 12:15; Admin Dose 100 MLS/HR; Start 03/08/17 at 11:30 Hydralazine HCl (Apresoline) 10 mg Q6H PRN IV SBP>160; Start 03/08/17 at 11:30 Hydrochlorothiazide (Hydrochlorothiazide) 12.5 mg DAILY PO Last administered on 03/11/17 08:42; Admin Dose 12.5 MG; Start 03/09/17 at 09:00 Nitroglycerin (Nitroglycerin (Sl Tab) 0.4 Mg) 1 tab Q5M PRN SL CHEST PAIN; Start 03/08/17 at 12:30 Hydromorphone HCl 1 mg 1 mg Q4H PRN IV PAIN Last administered on 03/11/17 09:46 ; Admin Dose 1 MG; Start 03/08/17 at 15:00 Sodium Chloride (NS) 1,000 ml @ 75 mls/hr [id number] IV Last administered on 05:59; Admin Dose 75 MLS/HR; Start 03/09/17 at 01:37 Cyclobenzaprine HCl (Flexeril) 10 mg Q8H PRN PO MUSCLE SPASMS; Start 03/09/17 at 12:00 Docusate Sodium (Colace) 100 mg TID PO Last administered on 03/10/17 21:00; Admin Dose 100 MG; Start 03/10/17 at 13:00 DOMINGA MERLOS MD Mar 11, 2017 10:27
[2017-03-11] MEDS: THIAMINE 100 MG TAB PO SCH (11:12)
[2017-03-11] MEDS: CEFTRIAXONE 1 GM/50 ML (PMX) 50 ML IVPB SCH (11:12)
[2017-03-11] MEDS: POTASSIUM CHLORIDE (SR) 20 MEQ TAB PO SCH ×2 (11:14→20:33)
--- NOTE | 2017-03-11 12:57 | PN ---
Date/Time of Note Date/Time of Note DATE: 03/11/17 TIME: 12:50 Assessment/Plan Lines/Catheters IV Catheter Type (from Nrsg): Peripheral IV Knight in Place (from Nrsg): No Assessment/Plan Chief Complaint/Hosp Course Status post fall Multiple right-sided rib fracture Patient has dropped her hemoglobin from 14.3 to -8.7 She has moderate amount of pleural effusion on the right side which is possibly hemothorax Would recommend thoracentesis and evacuation of hematoma in order to decrease constriction on the lung in the future If not successful will need VATS Patient also has a 10 mm nodule in the right lower lobe After the fusion is resolved a CT scan would be recommended to evaluate the nodule We will discuss with the referring physicians Problems: Subjective 24 Hr Interval Summary Constitutional: improved Pain Control: mild Exam/Review of Systems Vital Signs Vitals Vital Signs Date Time Temp Pulse Resp B/P Pulse Ox O2 Delivery O2 Flow Rate FiO2 03/11/17 11:09 99.2 93 17 123/58 95 03/11/17 08:02 21 03/09/17 15:45 2.0 03/09/17 12:42 Nasal Cannula Intake and Output 03/10/17 03/10/17 03/11/17 15:00 23:00 07:00 Intake Total 50 ml 1075 ml 690 ml Balance 50 ml 1075 ml 690 ml Exam Neck: non-tender, supple Respiratory: clear to auscultation, normal air movement Cardiovascular: nl pulses, regular rate and rhythm Gastrointestinal: nl liver, spleen, non-tender, soft Results Result Diagram: 03/11/17 0547 03/11/17 0547 NADIR JACKMAN MD Mar 11, 2017 12:57
--- NOTE | 2017-03-11 16:05 | CONS ---
Date/Time of Note Date/Time of Note DATE: 03/11/17 TIME: 15:55 Consult Date/Type/Reason Admit Date/Time Mar 09, 2017 at 10:16 Initial Consult Date 03/08/17 Type of Consultation: Pulmonary Subjective No events. Images reviewed. Objective Vital Signs Date Time Temp Pulse Resp B/P Pulse Ox O2 Delivery O2 Flow Rate FiO2 03/11/17 15:05 98.7 82 17 108/55 94 03/11/17 12:56 21 03/09/17 15:45 2.0 03/09/17 12:42 Nasal Cannula Intake and Output 03/10/17 03/10/17 03/11/17 15:00 23:00 07:00 Intake Total 50 ml 1075 ml 690 ml Balance 50 ml 1075 ml 690 ml Exam HEENT: Neck supple; no JVD; no LAD CVS: RRR, S1 and S2 CHEST: Decreased at bases b/l ABD: Soft, NT, + BS EXT: No c/c/e Results/Medications Result Diagram: 03/11/17 0547 03/11/17 0547 Results 24 hrs Laboratory Tests Test 03/11/17 05:47 White Blood Count 15.5 #H Red Blood Count 3.08 L Hemoglobin 8.7 L Hematocrit 26.9 L Mean Corpuscular Volume 87.3 Mean Corpuscular Hemoglobin 28.2 L Mean Corpuscular Hemoglobin Concent 32.3 Red Cell Distribution Width 15.9 H Platelet Count 399 Mean Platelet Volume 11.0 H Neutrophils % 82.7 H Lymphocytes % 6.9 L Monocytes % 6.3 Eosinophils % 3.0 Basophils % 0.2 Nucleated Red Blood Cells % 0.0 Neutrophils # 12.8 H Lymphocytes # 1.1 Monocytes # 1.0 H Eosinophils # 0.5 Basophils # 0.0 Nucleated Red Blood Cells # 0.0 Sodium Level 141 Potassium Level 3.2 L Chloride Level 108 Carbon Dioxide Level 23 Anion Gap 13 Blood Urea Nitrogen 11 Creatinine 0.81 Glucose Level 107 Calcium Level 8.2 L Medications Current Medications Amlodipine Besylate (Norvasc) 5 mg DAILY PO Last administered on 03/11/17 08:43 ; Admin Dose 5 MG; Start 03/09/17 at 09:00 Atorvastatin Calcium (Lipitor) 40 mg QHS PO Last administered on 03/10/17 21:00 ; Admin Dose 40 MG; Start 03/08/17 at 21:00 Docusate Sodium (Colace) 200 mg BID PO Last administered on 03/11/17 08:41; Admin Dose 200 MG; Start 03/08/17 at 21:00 Senna (Senokot) 1 tab BID PO Last administered on 03/11/17 08:43; Admin Dose 1 TAB; Start 03/08/17 at 21:00 Losartan Potassium (Cozaar) 100 mg DAILY PO Last administered on 03/11/17 08:42 ; Admin Dose 100 MG; Start 03/09/17 at 09:00 Ondansetron HCl (Zofran Inj) 4 mg Q6H PRN IV NAUSEA AND/OR VOMITING; Start 03/08 at 11:00 Acetaminophen (Tylenol Tab) 650 mg Q6H PRN PO PAIN LEVEL 1-3 OR FEVER; Start at 11:00 Acetaminophen (Tylenol Supp) 650 mg Q6H PRN [place] PAIN LEVEL 1-3 OR FEVER; Start 03/08/17 at 11:00 Acetaminophen/ Hydrocodone Bitart ([place] (5/325)) 1 tab Q6H PRN PO MODERATE PAIN LEVEL 4-6 Last administered on 03/09/17 10:36; Admin Dose 1 TAB; Start 03/08 at 11:00 Docusate Sodium (Colace) 100 mg Q12H PRN PO CONSTIPATION; Start 03/08/17 at 11: 00 Famotidine 20 mg 20 mg HS IV Last administered on 03/10/17 21:00; Admin Dose 20 MG; Start 03/08/17 at 21:00 Ceftriaxone Sodium (Rocephin) 50 ml @ 100 mls/hr Q24H IVPB Last administered on 03/11/17 11:12; Admin Dose 100 MLS/HR; Start 03/08/17 at 11:30 Hydralazine HCl (Apresoline) 10 mg Q6H PRN IV SBP>160; Start 03/08/17 at 11:30 Hydrochlorothiazide (Hydrochlorothiazide) 12.5 mg DAILY PO Last administered on 03/11/17 08:42; Admin Dose 12.5 MG; Start 03/09/17 at 09:00 Nitroglycerin (Nitroglycerin (Sl Tab) 0.4 Mg) 1 tab Q5M PRN SL CHEST PAIN; Start 03/08/17 at 12:30 Hydromorphone HCl 1 mg 1 mg Q4H PRN IV PAIN Last administered on 03/11/17 13:55 ; Admin Dose 1 MG; Start 03/08/17 at 15:00 Sodium Chloride (NS) 1,000 ml @ 75 mls/hr [id number] IV Last administered on 05:59; Admin Dose 75 MLS/HR; Start 03/09/17 at 01:37 Cyclobenzaprine HCl (Flexeril) 10 mg Q8H PRN PO MUSCLE SPASMS; Start 03/09/17 at 12:00 Docusate Sodium (Colace) 100 mg TID PO Last administered on 03/11/17 13:56; Admin Dose 100 MG; Start 03/10/17 at 13:00 Metoprolol Succinate (Toprol Xl) 50 mg DAILY PO ; Start 03/12/17 at 09:00 Potassium Chloride (Klor-Con 20) 40 meq BID PO Last administered on 03/11/17 11 :14; Admin Dose 40 MEQ; Start 03/11/17 at 10:30; Stop 03/12/17 at 10:29 Thiamine HCl (Vitamin B1) 100 mg DAILY PO Last administered on 03/11/17 11:12; Admin Dose 100 MG; Start 03/11/17 at 10:30; Stop 03/18/17 at 10:29 Assessment/Plan Additional Assessment/Plan IMP: 1. s/p fall and chest wall trauma 2. R > L effusion: are new and the low density nature of the fluid and b/l nature argues against hemothorax and favors transudative process. RECS: 1. Right diag/ther thoracentesis--send fluid for routine studies and HCT 2. D/C IVFs 3. ECHO MOE BOGGS MD Mar 11, 2017 16:05
[2017-03-11] MEDS: ATORVASTATIN 40 MG TAB PO SCH (20:32)
[2017-03-11] MEDS: FAMOTIDINE 20 MG INJ IV SCH (20:33)
[2017-03-12] VITALS (11 sets, daily range): BP systolic 113–135; BP diastolic 61–64; PULSE 97–109; RESP 16–19
[2017-03-12] MEDS: ALBUTEROL/IPRATROPIUM (NEB) 3 ML AMP HHN SCH ×6 (01:46→20:44)
[2017-03-12] MEDS: HYDROmorphONE 1 MG/ML SYG IV PRN ×5 (03:04→23:20)
[2017-03-12 06:31] LABS: BASOPHIL # 0.1 10^3/ul (0.0-0.1); BASOPHILS % 0.4 % (0.0-2.0); EOSINOPHILS # 0.9 10^3/ul (0.0-0.5); EOSINOPHILS % 7.1 % (0.0-7.0); HEMATOCRIT 30.2 % (37.0-47.0); HEMOGLOBIN 9.5 g/dl (12.0-16.0); LYMPHOCYTES # 0.9 10^3/ul (0.8-2.9); MEAN CORPUSCULAR HEMOGLOBIN 27.7 pg (29.0-33.0); MEAN CORPUSCULAR HGB CONC 31.5 g/dl (32.0-37.0); MEAN PLATELET VOLUME 10.9 fl (7.4-10.4); MONOCYTE # 1.2 10^3/ul (0.3-0.9); MONOCYTES % 8.7 % (0.0-11.0); NEUTROPHILS % 76.2 % (39.0-77.0); PLATELET COUNT 518 10^3/UL (140-415); RED BLOOD COUNT 3.43 10^6/ul (4.20-5.40); RED CELL DISTRIBUTION WIDTH 16.2 % (11.5-14.5); WHITE BLOOD COUNT 13.2 10^3/ul (4.8-10.8)
[2017-03-12 06:37] LABS: INR 0.92; PROTIME 12.4 Sec (12.2-14.2)
[2017-03-12 06:48] LABS: CALCIUM 9.4 mg/dl (8.4-10.2); CREATININE 0.73 mg/dl (0.44-1.00); POTASSIUM 4.1 mmol/L (3.5-5.1)
[2017-03-12] MEDS: DOCUSATE SODIUM 100 MG CAP PO SCH ×5 (09:00→20:36)
[2017-03-12] MEDS: THIAMINE 100 MG TAB PO SCH (09:30)
[2017-03-12] MEDS: SENNA TAB PO SCH ×2 (09:31→20:36)
[2017-03-12] MEDS: HYDROCHLOROTHIAZIDE 12.5 MG CAP PO SCH (09:31)
[2017-03-12] MEDS: AMLODIPINE 5 MG TAB PO SCH (09:31)
[2017-03-12] MEDS: POTASSIUM CHLORIDE (SR) 20 MEQ TAB PO SCH (09:31)
[2017-03-12] MEDS: LOSARTAN 50 MG TAB PO SCH (09:31)
[2017-03-12] MEDS: METOPROLOL (XL) 50 MG TAB PO SCH (09:32)
--- NOTE | 2017-03-12 11:33 | PN ---
Date/Time of Note Date/Time of Note DATE: 03/12/17 TIME: 11:29 Assessment/Plan VTE Prophylaxis VTE Prophylaxis Intervention: contraindicated Lines/Catheters IV C[facility]ter Type (from [facility] Saline Lock Urinary Cath still in place: No Assessment/Plan Problems: (1) Hemopneumothorax on right Status: Acute Comment: Pending diagnostic thoracentesis based on radiology availability (2) Multiple rib fractures Status: Acute Comment: Stable. Qualifiers: Encounter type: initial encounter Fracture type: closed Laterality: right Qualified Code: S22.41XA - Closed fracture of multiple ribs of right side, initial encounter (3) Hypertension Status: Chronic Comment: Adequate control blood pressure on current medication regimen Qualifiers: Hypertension type: essential hypertension Qualified Code: I10 - Essential hypertension (4) Diastolic dysfunction Status: Chronic Comment: Adequate control on the current regimen (5) Osteoporosis Status: Chronic Comment: Noted. Will need treatment in the future as an outpatient Qualifiers: Osteoporosis type: age-related Presence of current pathological fracture: with current pathological fracture Encounter type: initial encounter Qualified Code: M80.00XA - Age-related osteoporosis with current pathological fracture, initial encounter (6) Compression fx, thoracic spine Status: Chronic Comment: As below will need treatment for osteoporosis Qualifiers: Encounter type: initial encounter Fracture type: closed Qualified Code: S22.000A - Compression fx, thoracic spine, closed, initial encounter (7) Hypokalemia Status: Resolved Comment: Resolved with treatment (8) UTI (urinary tract infection) Status: Acute Comment: On appropriate therapy. Qualifiers: Urinary tract infection type: acute cystitis Hematuria presence: without hematuria Qualified Code: N30.00 - Acute cystitis without hematuria (9) Adrenal nodule Status: Chronic Comment: Workup is in progress Subjective 24 Hr Interval Summary Free Text/Dictation Patient reports she is feeling modestly discouraged today as her breathing is not better. She is asking when she will have her thoracentesis. Constitutional: no complaints Respiratory: shortness of breath (Dyspnea on exertion) Cardiovascular: no complaints Gastrointestinal: no complaints Genitourinary: no complaints Exam/Review of Systems Vital Signs Vitals Vital Signs Date Time Temp Pulse Resp B/P Pulse Ox O2 Delivery O2 Flow Rate FiO2 03/12/17 09:35 98 18 93 21 03/12/17 07:37 98.3 117/63 03/09/17 15:45 2.0 03/09/17 12:42 Nasal Cannula Intake and Output 03/11/17 03/11/17 03/12/17 15:00 23:00 07:00 Intake Total 1225 ml 400 ml Output Total 100 ml 1000 ml Balance 1125 ml -600 ml Exam Constitutional: alert, oriented Neck: non-tender, supple Respiratory: clear to auscultation, other (Decreased breath sounds right base) Cardiovascular: nl pulses, regular rate and rhythm Skin: other (Papular rash bilateral trunk front and back) Results Result Diagram: 03/12/1752603/12/17526 Results 24 hrs Laboratory Tests Test 03/12/17 05:27 White Blood Count 13.2 H Red Blood Count 3.43 L Hemoglobin 9.5 L Hematocrit 30.2 L Mean Corpuscular Volume 88.0 Mean Corpuscular Hemoglobin 27.7 L Mean Corpuscular Hemoglobin Concent 31.5 L Red Cell Distribution Width 16.2 H Platelet Count 518 #H Mean Platelet Volume 10.9 H Neutrophils % 76.2 Lymphocytes % 7.0 L Monocytes % 8.7 Eosinophils % 7.1 H Basophils % 0.4 Nucleated Red Blood Cells % 0.0 Neutrophils # 10.0 H Lymphocytes # 0.9 Monocytes # 1.2 H Eosinophils # 0.9 H Basophils # 0.1 Nucleated Red Blood Cells # 0.0 Prothrombin Time 12.4 Prothrombin Time Ratio 1.0 INR International Normalized Ratio 0.92 Sodium Level 142 Potassium Level 4.1 Chloride Level 105 Carbon Dioxide Level 24 Anion Gap 17 H Blood Urea Nitrogen 9 Creatinine 0.73 Glucose Level 104 Calcium Level 9.4 Medications Medications Current Medications Amlodipine Besylate (Norvasc) 5 mg DAILY PO Last administered on 03/12/17 09:31 ; Admin Dose 5 MG; Start 03/09/17 at 09:00 Atorvastatin Calcium (Lipitor) 40 mg QHS PO Last administered on 03/11/17 20:32 ; Admin Dose 40 MG; Start 03/08/17 at 21:00 Docusate Sodium (Colace) 200 mg BID PO Last administered on 03/12/17 09:31; Admin Dose 200 MG; Start 03/08/17 at 21:00 Senna (Senokot) 1 tab BID PO Last administered on 03/12/17 09:31; Admin Dose 1 TAB; Start 03/08/17 at 21:00 Losartan Potassium (Cozaar) 100 mg DAILY PO Last administered on 03/12/17 09:31 ; Admin Dose 100 MG; Start 03/09/17 at 09:00 Ondansetron HCl (Zofran Inj) 4 mg Q6H PRN IV NAUSEA AND/OR VOMITING; Start 03/08 at 11:00 Acetaminophen (Tylenol Tab) 650 mg Q6H PRN PO PAIN LEVEL 1-3 OR FEVER; Start at 11:00 Acetaminophen (Tylenol Supp) 650 mg Q6H PRN [place] PAIN LEVEL 1-3 OR FEVER; Start 03/08/17 at 11:00 Acetaminophen/ Hydrocodone Bitart ([place] (5/325)) 1 tab Q6H PRN PO MODERATE PAIN LEVEL 4-6 Last administered on 03/09/17 10:36; Admin Dose 1 TAB; Start 03/08 at 11:00 Docusate Sodium (Colace) 100 mg Q12H PRN PO CONSTIPATION; Start 03/08/17 at 11: 00 Famotidine 20 mg 20 mg HS IV Last administered on 03/11/17 20:33; Admin Dose 20 MG; Start 03/08/17 at 21:00 Ceftriaxone Sodium (Rocephin) 50 ml @ 100 mls/hr Q24H IVPB Last administered on 03/11/17 11:12; Admin Dose 100 MLS/HR; Start 03/08/17 at 11:30 Hydralazine HCl (Apresoline) 10 mg Q6H PRN IV SBP>160; Start 03/08/17 at 11:30 Hydrochlorothiazide (Hydrochlorothiazide) 12.5 mg DAILY PO Last administered on 03/12/17 09:31; Admin Dose 12.5 MG; Start 03/09/17 at 09:00 Nitroglycerin (Nitroglycerin (Sl Tab) 0.4 Mg) 1 tab Q5M PRN SL CHEST PAIN; Start 03/08/17 at 12:30 Hydromorphone HCl (Dilaudid) 1 mg Q4H PRN IV PAIN Last administered on 09:28; Admin Dose 1 MG; Start 03/08/17 at 15:00 Cyclobenzaprine HCl (Flexeril) 10 mg Q8H PRN PO MUSCLE SPASMS; Start 03/09/17 at 12:00 Docusate Sodium (Colace) 100 mg TID PO Last administered on 03/11/17 13:56; Admin Dose 100 MG; Start 03/10/17 at 13:00 Metoprolol Succinate (Toprol Xl) 50 mg DAILY PO Last administered on 03/12/17 09:32; Admin Dose 50 MG; Start 03/12/17 at 09:00 Thiamine HCl (Vitamin B1) 100 mg DAILY PO Last administered on 03/12/17 09:30; Admin Dose 100 MG; Start 03/11/17 at 10:30; Stop 03/18/17 at 10:29 DOMINGA MERLOS MD Mar 12, 2017 11:33
[2017-03-12] MEDS: CEFTRIAXONE 1 GM/50 ML (PMX) 50 ML IVPB SCH (11:55)
--- NOTE | 2017-03-12 12:36 | PN ---
Date/Time of Note Date/Time of Note DATE: 03/12/17 TIME: 12:34 Assessment/Plan Lines/Catheters IV Catheter Type (from Nrs): Saline Lock Knight in Place (from Nrs): No Assessment/Plan Assessment/Plan 61-year-old female status post fall 3 weeks ago with multiple rib fractures, hemopneumothorax, minimal pneumoperitoneum, free abdominal fluid * CT scan reviewed. Pneumoperitoneum resolved. No extravasation of contrast to indicate intestinal injury. Abdominal symptoms likely secondary to a small amount of hemoperitoneum. * Hemoglobin 8.7 today. Patient asymptomatic. Consider transfusion if hemoglobin falls below 7. * Continue incentive spirometry * For thoracocentesis in a.m. * No general surgical intervention required Subjective 24 Hr Interval Summary Still with some right-sided chest wall pain. Denies abdominal pain. Tolerating diet. Afebrile. Exam/Review of Systems Vital Signs Vitals Vital Signs Date Time Temp Pulse Resp B/P Pulse Ox O2 Delivery O2 Flow Rate FiO2 03/12/17 11:30 98.5 105 18 113/61 97 03/12/17 09:35 21 03/09/17 15:45 2.0 03/09/17 12:42 Nasal Cannula Intake and Output 03/11/17 03/11/17 03/12/17 15:00 23:00 07:00 Intake Total 1225 ml 400 ml Output Total 100 ml 1000 ml Balance 1125 ml -600 ml Exam Free Text/Dictation GENERAL: Awake, alert, oriented x 3. No acute distress. Sitting up in bed. CARDIOVASCULAR: S1S2, regular rate and rhythm. CHEST WALL: Tenderness of right chest wall RESPIRATORY: Decreased breath sounds right base ABDOMEN: Soft, non-tender to palpation. There is no signs of diffuse peritonitis. EXTREMITIES: Free range of motion x 4. No cyanosis, edema, or clubbing. Results Result Diagram: 03/12/17 0527 03/12/17 0527 TYLER KENNY MD Mar 12, 2017 12:36
--- NOTE | 2017-03-12 12:47 | PN ---
Date/Time of Note Date/Time of Note DATE: 03/12/17 TIME: 12:45 Assessment/Plan Lines/Catheters IV Catheter Type (from Nrsg): Saline Lock Knight in Place (from Nrsg): No Assessment/Plan Chief Complaint/Hosp Course Status post fall Multiple right-sided rib fracture Patient has dropped her hemoglobin from 14.3 to -8.7, now up to 9.9 She has moderate amount of pleural effusion on the right side which is possibly hemothorax Would recommend thoracentesis and evacuation of possible hematoma in order to decrease constriction on the lung in the future If not successful will need VATS Patient also has a 10 mm nodule in the right lower lobe After the Effusion is resolved a CT scan would be recommended to evaluate the nodule We will discuss with the referring physicians Problems: Subjective 24 Hr Interval Summary Constitutional: improved Pain Control: mild Exam/Review of Systems Vital Signs Vitals Vital Signs Date Time Temp Pulse Resp B/P Pulse Ox O2 Delivery O2 Flow Rate FiO2 03/12/17 11:30 98.5 105 18 113/61 97 03/12/17 09:35 21 03/09/17 15:45 2.0 03/09/17 12:42 Nasal Cannula Intake and Output 03/11/17 03/11/17 03/12/17 15:00 23:00 07:00 Intake Total 1225 ml 400 ml Output Total 100 ml 1000 ml Balance 1125 ml -600 ml Exam Eyes: EOMI, nl conjunctiva, nl lids, nl sclera ENMT: mucosa pink and moist, nl external ears & nose, nl lips & teeth, nl nasal mucosa & septum Neck: non-tender, supple Respiratory: clear to auscultation, normal air movement Cardiovascular: nl pulses, regular rate and rhythm Gastrointestinal: nl liver, spleen, non-tender, soft Results Result Diagram: 03/12/17 0527 03/12/17 0527 NADIR JACKMAN MD Mar 12, 2017 12:47
--- NOTE | 2017-03-12 17:25 | CONS ---
Date/Time of Note Date/Time of Note DATE: 03/12/17 TIME: 17:24 Consult Date/Type/Reason Admit Date/Time Mar 09, 2017 at 10:16 Initial Consult Date 03/08/17 Type of Consultation: Pulmonary Subjective Doing well. No events. Objective Vital Signs Date Time Temp Pulse Resp B/P Pulse Ox O2 Delivery O2 Flow Rate FiO2 03/12/17 17:15 99 03/12/17 15:26 99.1 18 135/61 96 03/12/17 13:32 21 03/09/17 15:45 2.0 03/09/17 12:42 Nasal Cannula Intake and Output 03/11/17 03/11/17 03/12/17 15:00 23:00 07:00 Intake Total 1225 ml 400 ml Output Total 100 ml 1000 ml Balance 1125 ml -600 ml Exam HEENT: Neck supple; no JVD; no LAD CVS: RRR, S1 and S2 CHEST: Decreased at bases b/l ABD: Soft, NT, + BS EXT: No c/c/e Results/Medications Result Diagram: 03/12/17 0527 03/12/17 0527 Results 24 hrs Laboratory Tests Test 03/12/17 05:27 White Blood Count 13.2 H Red Blood Count 3.43 L Hemoglobin 9.5 L Hematocrit 30.2 L Mean Corpuscular Volume 88.0 Mean Corpuscular Hemoglobin 27.7 L Mean Corpuscular Hemoglobin Concent 31.5 L Red Cell Distribution Width 16.2 H Platelet Count 518 #H Mean Platelet Volume 10.9 H Neutrophils % 76.2 Lymphocytes % 7.0 L Monocytes % 8.7 Eosinophils % 7.1 H Basophils % 0.4 Nucleated Red Blood Cells % 0.0 Neutrophils # 10.0 H Lymphocytes # 0.9 Monocytes # 1.2 H Eosinophils # 0.9 H Basophils # 0.1 Nucleated Red Blood Cells # 0.0 Prothrombin Time 12.4 Prothrombin Time Ratio 1.0 INR International Normalized Ratio 0.92 Sodium Level 142 Potassium Level 4.1 Chloride Level 105 Carbon Dioxide Level 24 Anion Gap 17 H Blood Urea Nitrogen 9 Creatinine 0.73 Glucose Level 104 Calcium Level 9.4 Medications Current Medications Amlodipine Besylate (Norvasc) 5 mg DAILY PO Last administered on 03/12/17t 09:31 ; Admin Dose 5 MG; Start 03/09/17 at 09:00 Atorvastatin Calcium (Lipitor) 40 mg QHS PO Last administered on 03/11/17 20:32 ; Admin Dose 40 MG; Start 03/08/17 at 21:00 Docusate Sodium (Colace) 200 mg BID PO Last administered on 03/12/17 09:31; Admin Dose 200 MG; Start 03/08/17 at 21:00 Senna (Senokot) 1 tab BID PO Last administered on 03/12/17 09:31; Admin Dose 1 TAB; Start 03/08/17 at 21:00 Losartan Potassium (Cozaar) 100 mg DAILY PO Last administered on 03/12/17 09:31 ; Admin Dose 100 MG; Start 03/09/17 at 09:00 Ondansetron HCl (Zofran Inj) 4 mg Q6H PRN IV NAUSEA AND/OR VOMITING; Start 03/08 at 11:00 Acetaminophen (Tylenol Tab) 650 mg Q6H PRN PO PAIN LEVEL 1-3 OR FEVER; Start at 11:00 Acetaminophen (Tylenol Supp) 650 mg Q6H PRN [place] PAIN LEVEL 1-3 OR FEVER; Start 03/08/17 at 11:00 Acetaminophen/ Hydrocodone Bitart ([place] (5/325)) 1 tab Q6H PRN PO MODERATE PAIN LEVEL 4-6 Last administered on 03/09/17 10:36; Admin Dose 1 TAB; Start 03/08 at 11:00 Docusate Sodium (Colace) 100 mg Q12H PRN PO CONSTIPATION; Start 03/08/17 at 11: 00 Famotidine 20 mg 20 mg HS IV Last administered on 03/11/17 20:33; Admin Dose 20 MG; Start 03/08/17 at 21:00 Ceftriaxone Sodium (Rocephin) 50 ml @ 100 mls/hr Q24H IVPB Last administered on 03/12/17 11:55; Admin Dose 100 MLS/HR; Start 03/08/17 at 11:30 Hydralazine HCl (Apresoline) 10 mg Q6H PRN IV SBP>160; Start 03/08/17 at 11:30 Hydrochlorothiazide (Hydrochlorothiazide) 12.5 mg DAILY PO Last administered on 03/12/17 09:31; Admin Dose 12.5 MG; Start 03/09/17 at 09:00 Nitroglycerin (Nitroglycerin (Sl Tab) 0.4 Mg) 1 tab Q5M PRN SL CHEST PAIN; Start 03/08/17 at 12:30 Hydromorphone HCl (Dilaudid) 1 mg Q4H PRN IV PAIN Last administered on 15:02; Admin Dose 1 MG; Start 03/08/17 at 15:00 Cyclobenzaprine HCl (Flexeril) 10 mg Q8H PRN PO MUSCLE SPASMS; Start 03/09/17 at 12:00 Docusate Sodium (Colace) 100 mg TID PO Last administered on 03/11/17 13:56; Admin Dose 100 MG; Start 03/10/17 at 13:00 Metoprolol Succinate (Toprol Xl) 50 mg DAILY PO Last administered on 03/12/17 09:32; Admin Dose 50 MG; Start 03/12/17 at 09:00 Thiamine HCl (Vitamin B1) 100 mg DAILY PO Last administered on 03/12/17 09:30; Admin Dose 100 MG; Start 03/11/17 at 10:30; Stop 03/18/17 at 10:29 Assessment/Plan Additional Assessment/Plan IMP: 1. s/p fall and chest wall trauma 2. R > L effusion: are new and the low density nature of the fluid and b/l nature argues against hemothorax and favors transudative process. RECS: 1. Right diag/ther thoracentesis--send fluid for routine studies and HCT 2. D/C IVFs 3. will await ECHO MOE BOGGS MD Mar 12, 2017 17:25
[2017-03-12] MEDS: ATORVASTATIN 40 MG TAB PO SCH (20:35)
[2017-03-12] MEDS: FAMOTIDINE 20 MG INJ IV SCH (20:35)
[2017-03-13] VITALS (12 sets, daily range): BP systolic 104–133; BP diastolic 54–63; PULSE 98–103; RESP 17–20
[2017-03-13] MEDS: ALBUTEROL/IPRATROPIUM (NEB) 3 ML AMP HHN SCH ×6 (01:00→21:37)
[2017-03-13] MEDS: HYDROmorphONE 1 MG/ML SYG IV PRN ×5 (05:29→22:04)
[2017-03-13] MEDS: DOCUSATE SODIUM 100 MG CAP PO SCH ×6 (09:00→21:26)
[2017-03-13] MEDS: SENNA TAB PO SCH ×3 (09:00→21:25)
[2017-03-13] MEDS: THIAMINE 100 MG TAB PO SCH (09:34)
[2017-03-13] MEDS: LOSARTAN 50 MG TAB PO SCH (09:35)
[2017-03-13] MEDS: METOPROLOL (XL) 50 MG TAB PO SCH (09:35)
[2017-03-13] MEDS: AMLODIPINE 5 MG TAB PO SCH (09:35)
[2017-03-13] MEDS: HYDROCHLOROTHIAZIDE 12.5 MG CAP PO SCH (09:35)
--- NOTE | 2017-03-13 11:07 | PN ---
Date/Time of Note Date/Time of Note DATE: 03/13/17 TIME: 10:53 Assessment/Plan VTE Prophylaxis VTE Prophylaxis Intervention: SCD's Lines/Catheters IV C[facility]ter Type (from [email or web address] Saline Lock Urinary Cath still in place: No Assessment/Plan Chief Complaint/Hosp Course 1. Status post fall with in the month multiple rib fractures with very small right anterior hemopneumothorax. Remains hemodynamically stable. -continue with oxygen, bronchodilators, incentive spirometry and pain medications. -CT surgery and pulmonary eval appreciated 2. Moderate pleural effusion with adjacent atelectasis. -For diagnostic thoracentesis today- Rule out transudative process. -Continue abx -CT sx on board and recommend VATS if thoracentesis is unsuccessful 3. Abdominal pain with small hemoperitoneum and pneumoperitoneum RUQ. Resolved -Status post surgery evaluation and no indication for any surgical approach. 4. Urinary tract infection. -Continue ceftriaxone. 5. Thrombocytosis, likely dehydration. -Continue IV fluids 6. Acute kidney injury, likely secondary to dehydration. Resolved -We will avoid nephrotoxins and monitor renal function closely. 7. Mildly elevated lipase, likely concurrent. Resolved. 8. Essential hypertension. Stable. -Continue antihypertensives. Will adjust as indicated. 9. Hypercholesterolemia -On statin. Lipid panel stable. 10. Chronic pain with multiple thoracic spinal compression fractures. -Continue home medication and PRN analgesics. 11.Hypokalemia. Resolved. 12. 10 mm lung nodule in the right lower lobe -Recommend f/u CT in 3 months 13.Rashes, rule out allergic vs infectious etiology. -Antihistamines -ID consult DVT prophylaxis: SCDs PUD prophylaxis: Pepcid. Plan:F/u with thoracentesis studies. continue abx. Case discussed with Dr. Manzano Problems: Subjective 24 Hr Interval Summary Free Text/Dictation Patient with no further complaints of cough or chest wall pain. No fevers. No reported dysuria . She has generalized red rashes all over her body and this has been there since Monday per patient. Has occasional itching also. Exam/Review of Systems Vital Signs Vitals Vital Signs Date Time Temp Pulse Resp B/P Pulse Ox O2 Delivery O2 Flow Rate FiO2 03/13/17 09:12 64 20 96 21 03/13/17 07:28 98.5 128/60 03/09/17 15:45 2.0 03/09/17 12:42 Nasal Cannula Exam General: Fragile female, not in any acute distress . HEENT: Normocephalic, Atraumatic, No laceration or hematoma; Eyes: PEERL, Conjunctiva clear, Anicteric sclera Neck: Supple without any lymphadenopathy, nontender, no JVD, no carotid bruits, trachea midline, no thyromegaly Cardiac: S1, S2 auscultated, regular rhythm and rate, no mumurs or gallop. There is some mild tenderness to right anterior chest wall especially with patient cough. Pulmonary: Normal respiratory effort. Chest clear to auscultation bilaterally, no adventitious breath sounds GI: soft, non- distended, no masses, no rebound tenderness or guarding. Bowel sounds active on all four quadrants Genitourinary: Deferred Extremities: No cyanosis, clubbing, or edema. Pulses [2+] bilaterally. Full ROM on all four extremities. No focal weakness appreciated. Neurologic: Alert to person, place, time, and situation. Affect appropriate, intact sensation. Skin: Rashes (red) mostly under breast, abdomen and groin area. Clean,dry, and intact. No ecchymosis, no rashes, or lesions Results Result Diagram: 03/12/1752603/12/17526 Medications Medications Current Medications Amlodipine Besylate (Norvasc) 5 mg DAILY PO Last administered on 03/13/17 09:35 ; Admin Dose 5 MG; Start 03/09/17 at 09:00 Atorvastatin Calcium (Lipitor) 40 mg QHS PO Last administered on 03/12/17 20:35 ; Admin Dose 40 MG; Start 03/08/17 at 21:00 Docusate Sodium (Colace) 200 mg BID PO Last administered on 03/12/17 20:35; Admin Dose 200 MG; Start 03/08/17 at 21:00 Senna (Senokot) 1 tab BID PO Last administered on 03/12/17 20:36; Admin Dose 1 TAB; Start 03/08/17 at 21:00 Losartan Potassium (Cozaar) 100 mg DAILY PO Last administered on 03/13/17 09:35 ; Admin Dose 100 MG; Start 03/09/17 at 09:00 Ondansetron HCl (Zofran Inj) 4 mg Q6H PRN IV NAUSEA AND/OR VOMITING; Start 03/08 at 11:00 Acetaminophen (Tylenol Tab) 650 mg Q6H PRN PO PAIN LEVEL 1-3 OR FEVER; Start at 11:00 Acetaminophen (Tylenol Supp) 650 mg Q6H PRN [place] PAIN LEVEL 1-3 OR FEVER; Start 03/08/17 at 11:00 Acetaminophen/ Hydrocodone Bitart ([place] (5/325)) 1 tab Q6H PRN PO MODERATE PAIN LEVEL 4-6 Last administered on 03/09/17 10:36; Admin Dose 1 TAB; Start 03/08 at 11:00 Docusate Sodium (Colace) 100 mg Q12H PRN PO CONSTIPATION; Start 03/08/17 at 11: 00 Famotidine 20 mg 20 mg HS IV Last administered on 03/12/17 20:35; Admin Dose 20 MG; Start 03/08/17 at 21:00 Ceftriaxone Sodium (Rocephin) 50 ml @ 100 mls/hr Q24H IVPB Last administered on 03/12/17 11:55; Admin Dose 100 MLS/HR; Start 03/08/17 at 11:30 Hydralazine HCl (Apresoline) 10 mg Q6H PRN IV SBP>160; Start 03/08/17 at 11:30 Hydrochlorothiazide (Hydrochlorothiazide) 12.5 mg DAILY PO Last administered on 03/13/17 09:35; Admin Dose 12.5 MG; Start 03/09/17 at 09:00 Nitroglycerin (Nitroglycerin (Sl Tab) 0.4 Mg) 1 tab Q5M PRN SL CHEST PAIN; Start 03/08/17 at 12:30 Hydromorphone HCl (Dilaudid) 1 mg Q4H PRN IV PAIN Last administered on 09:34; Admin Dose 1 MG; Start 03/08/17 at 15:00 Cyclobenzaprine HCl (Flexeril) 10 mg Q8H PRN PO MUSCLE SPASMS; Start 03/09/17 at 12:00 Docusate Sodium (Colace) 100 mg TID PO Last administered on 03/13/17 09:34; Admin Dose 100 MG; Start 03/10/17 at 13:00 Metoprolol Succinate (Toprol Xl) 50 mg DAILY PO Last administered on 03/13/17 09:35; Admin Dose 50 MG; Start 03/12/17 at 09:00 Thiamine HCl (Vitamin B1) 100 mg DAILY PO Last administered on 03/13/17 09:34; Admin Dose 100 MG; Start 03/11/17 at 10:30; Stop 03/18/17 at 10:29 MARIAMA TORRES NP Mar 13, 2017 11:06
[2017-03-13] MEDS: CEFTRIAXONE 1 GM/50 ML (PMX) 50 ML IVPB SCH (12:08)
--- NOTE | 2017-03-13 12:49 | CONS ---
Date/Time of Note Date/Time of Note DATE: 03/13/17 TIME: 12:48 Consult Date/Type/Reason Admit Date/Time Mar 09, 2017 at 10:16 Initial Consult Date 03/08/17 Type of Consultation: Pulmonary Subjective Feels okay this morning with less shortness of breath Objective Vital Signs Date Time Temp Pulse Resp B/P Pulse Ox O2 Delivery O2 Flow Rate FiO2 03/13/17 12:35 103 03/13/17 11:24 98.0 20 133/63 96 03/13/17 09:12 21 03/09/17 15:45 2.0 03/09/17 12:42 Nasal Cannula Exam GENERAL: VITAL SIGNS: per chart NECK: Supple. No JVD or lymphadenopathy. CARDIAC EXAM: S1, S2. No added sounds or murmurs. CHEST: clear bilaterally, No added sounds, rales or wheezes ABDOMEN: Soft, nontender. No guarding or rebound. EXTREMITIES: No cyanosis, clubbing or edema. NEUROLOGIC: Generalized weakness. No focal deficits. Results/Medications Result Diagram: 03/12/1752603/12/17526 Medications Current Medications Amlodipine Besylate (Norvasc) 5 mg DAILY PO Last administered on 03/13/17 09:35 ; Admin Dose 5 MG; Start 03/09/17 at 09:00 Atorvastatin Calcium (Lipitor) 40 mg QHS PO Last administered on 03/12/17 20:35 ; Admin Dose 40 MG; Start 03/08/17 at 21:00 Docusate Sodium (Colace) 200 mg BID PO Last administered on 03/12/17 20:35; Admin Dose 200 MG; Start 03/08/17 at 21:00 Senna (Senokot) 1 tab BID PO Last administered on 03/12/17 20:36; Admin Dose 1 TAB; Start 03/08/17 at 21:00 Losartan Potassium (Cozaar) 100 mg DAILY PO Last administered on 03/13/17 09:35 ; Admin Dose 100 MG; Start 03/09/17 at 09:00 Ondansetron HCl (Zofran Inj) 4 mg Q6H PRN IV NAUSEA AND/OR VOMITING; Start 03/08 at 11:00 Acetaminophen (Tylenol Tab) 650 mg Q6H PRN PO PAIN LEVEL 1-3 OR FEVER; Start at 11:00 Acetaminophen (Tylenol Supp) 650 mg Q6H PRN [place] PAIN LEVEL 1-3 OR FEVER; Start 03/08/17 at 11:00 Acetaminophen/ Hydrocodone Bitart ([place] (5/325)) 1 tab Q6H PRN PO MODERATE PAIN LEVEL 4-6 Last administered on 03/09/17 10:36; Admin Dose 1 TAB; Start 03/08 at 11:00 Docusate Sodium (Colace) 100 mg Q12H PRN PO CONSTIPATION; Start 03/08/17 at 11: 00 Famotidine 20 mg 20 mg HS IV Last administered on 03/12/17 20:35; Admin Dose 20 MG; Start 03/08/17 at 21:00 Ceftriaxone Sodium (Rocephin) 50 ml @ 100 mls/hr Q24H IVPB Last administered on 03/13/17 12:08; Admin Dose 100 MLS/HR; Start 03/08/17 at 11:30 Hydralazine HCl (Apresoline) 10 mg Q6H PRN IV SBP>160; Start 03/08/17 at 11:30 Hydrochlorothiazide (Hydrochlorothiazide) 12.5 mg DAILY PO Last administered on 03/13/17 09:35; Admin Dose 12.5 MG; Start 03/09/17 at 09:00 Nitroglycerin (Nitroglycerin (Sl Tab) 0.4 Mg) 1 tab Q5M PRN SL CHEST PAIN; Start 03/08/17 at 12:30 Hydromorphone HCl (Dilaudid) 1 mg Q4H PRN IV PAIN Last administered on 09:34; Admin Dose 1 MG; Start 03/08/17 at 15:00 Cyclobenzaprine HCl (Flexeril) 10 mg Q8H PRN PO MUSCLE SPASMS; Start 03/09/17 at 12:00 Docusate Sodium (Colace) 100 mg TID PO Last administered on 03/13/17 09:34; Admin Dose 100 MG; Start 03/10/17 at 13:00 Metoprolol Succinate (Toprol Xl) 50 mg DAILY PO Last administered on 03/13/17 09:35; Admin Dose 50 MG; Start 03/12/17 at 09:00 Thiamine HCl (Vitamin B1) 100 mg DAILY PO Last administered on 8/7/17at 09:34; Admin Dose 100 MG; Start 03/11/17 at 10:30; Stop 03/18/17 at 10:29 Assessment/Plan Chief Complaint/Hosp Course Additional Assessment/Plan IMP: 1. s/p fall and chest wall trauma 2. R > L effusion: are new and the low density nature of the fluid and b/l nature argues against hemothorax and favors transudative process. 3. Extensive tobacco history likely underlying COPD RECS: 1. Pending thoracentesis. 2. D/C IVFs 3. will await ECHO 4. Outpatient pulmonary follow-up with me. Problems: GAIL GUADALUPE MD, [facility] Mar 13, 2017 12:49
[2017-03-13] MEDS ORDERED: DIPHENHYDRAMINE 1%/ZINC 28.3 GM CR TOP ONE (15:00)
[2017-03-13] MEDS ORDERED: DIPHENHYDRAMINE 50 MG INJ IV ONE (15:00)
--- NOTE | 2017-03-13 17:11 | CONS ---
Date/Time of Note Date/Time of Note DATE: 03/13/17 TIME: 17:10 Consultation Date/Type/Reason Admit Date/Time Mar 09, 2017 at 10:16 Date of Consultation: Mar 13, 2017 Type of Consultation: ID Reason for Consultation Antibiotic management Constitutional: no complaints Respiratory: shortness of breath (Dyspnea on exertion) Cardiovascular: no complaints Gastrointestinal: no complaints Genitourinary: no complaints Past Medical History Medical History: no pertinent history Past Surgical History Past Surgical Hx: no surgical history Social History Smoking Status: Never smoker Exam/Review of Systems Vital Signs Vitals Vital Signs Date Time Temp Pulse Resp B/P Pulse Ox O2 Delivery O2 Flow Rate FiO2 03/13/17 16:38 100 03/13/17 15:57 99.4 20 115/57 94 03/13/17 13:13 21 03/09/17 15:45 2.0 03/09/17 12:42 Nasal Cannula Results Result Diagram: 03/12/17 0527 03/12/17 0527 Medications Medications Current Medications Amlodipine Besylate (Norvasc) 5 mg DAILY PO Last administered on 03/13/17 09:35 ; Admin Dose 5 MG; Start 03/09/17 at 09:00 Atorvastatin Calcium (Lipitor) 40 mg QHS PO Last administered on 03/12/17 20:35 ; Admin Dose 40 MG; Start 03/08/17 at 21:00 Docusate Sodium (Colace) 200 mg BID PO Last administered on 03/12/17 20:35; Admin Dose 200 MG; Start 03/08/17 at 21:00 Senna (Senokot) 1 tab BID PO Last administered on 03/12/17 20:36; Admin Dose 1 TAB; Start 03/08/17 at 21:00 Losartan Potassium (Cozaar) 100 mg DAILY PO Last administered on 03/13/17 09:35 ; Admin Dose 100 MG; Start 03/09/17 at 09:00 Ondansetron HCl (Zofran Inj) 4 mg Q6H PRN IV NAUSEA AND/OR VOMITING; Start 03/08 at 11:00 Acetaminophen (Tylenol Tab) 650 mg Q6H PRN PO PAIN LEVEL 1-3 OR FEVER; Start at 11:00 Acetaminophen (Tylenol Supp) 650 mg Q6H PRN [place] PAIN LEVEL 1-3 OR FEVER; Start 03/08/17 at 11:00 Acetaminophen/ Hydrocodone Bitart ([place] (5/325)) 1 tab Q6H PRN PO MODERATE PAIN LEVEL 4-6 Last administered on 03/09/17 10:36; Admin Dose 1 TAB; Start 03/08 at 11:00 Docusate Sodium (Colace) 100 mg Q12H PRN PO CONSTIPATION; Start 03/08/17 at 11: 00 Famotidine 20 mg 20 mg HS IV Last administered on 03/12/17 20:35; Admin Dose 20 MG; Start 03/08/17 at 21:00 Ceftriaxone Sodium (Rocephin) 50 ml @ 100 mls/hr Q24H IVPB Last administered on 03/13/17 12:08; Admin Dose 100 MLS/HR; Start 03/08/17 at 11:30 Hydralazine HCl (Apresoline) 10 mg Q6H PRN IV SBP>160; Start 03/08/17 at 11:30 Hydrochlorothiazide (Hydrochlorothiazide) 12.5 mg DAILY PO Last administered on 03/13/17 09:35; Admin Dose 12.5 MG; Start 03/09/17 at 09:00 Nitroglycerin (Nitroglycerin (Sl Tab) 0.4 Mg) 1 tab Q5M PRN SL CHEST PAIN; Start 03/08/17 at 12:30 Hydromorphone HCl (Dilaudid) 1 mg Q4H PRN IV PAIN Last administered on 13:31; Admin Dose 1 MG; Start 03/08/17 at 15:00 Cyclobenzaprine HCl (Flexeril) 10 mg Q8H PRN PO MUSCLE SPASMS; Start 03/09/17 at 12:00 Docusate Sodium (Colace) 100 mg TID PO Last administered on 03/13/17 13:30; Admin Dose 100 MG; Start 03/10/17 at 13:00 Metoprolol Succinate (Toprol Xl) 50 mg DAILY PO Last administered on 03/13/17 09:35; Admin Dose 50 MG; Start 03/12/17 at 09:00 Thiamine HCl (Vitamin B1) 100 mg DAILY PO Last administered on 03/13/17 09:34; Admin Dose 100 MG; Start 8/5/17 at 10:30; Stop 03/18/17 at 10:29 DURGA PANDYA MD Mar 13, 2017 17:11
--- NOTE | 2017-03-13 19:51 | RADRPT ---
PROCEDURE: US Chest. CLINICAL INDICATION: Pleural effusion. TECHNIQUE: Targeted sonographic imaging of the chest was performed. COMPARISON: CT chest 03/10/2017. FINDINGS: Trace fluid is seen within the right lower thorax. Trace fluid may be present within the left lower thorax. IMPRESSION: Trace bilateral pleural fluid. RPTAT: HLST .Nikkie Alberts MD, MD Date Time Electronically viewed and signed by .Nikkie Alberts MD, MD on 03/13/2017 19:51 .T/
--- NOTE | 2017-03-13 20:33 | PN ---
Date/Time of Note Date/Time of Note DATE: 03/13/17 TIME: 20:32 Assessment/Plan Lines/Catheters IV Catheter Type (from Nrsg): Saline Lock Knight in Place (from Nrsg): No Assessment/Plan Chief Complaint/Hosp Course Status post fall Multiple right-sided rib fracture She has moderate amount of pleural effusion on the right side which is possibly hemothorax based on CT scan Ultrasound showed trace amount of effusion bilaterally With monitor the effusion on chest x-ray We will discuss with the referring physicians Problems: Subjective 24 Hr Interval Summary Constitutional: improved Pain Control: mild Exam/Review of Systems Vital Signs Vitals Vital Signs Date Time Temp Pulse Resp B/P Pulse Ox O2 Delivery O2 Flow Rate FiO2 03/13/17 19:55 98.7 88 17 104/54 93 03/13/17 17:15 21 03/09/17 15:45 2.0 03/09/17 12:42 Nasal Cannula Exam Neck: non-tender, supple Respiratory: clear to auscultation, normal air movement Cardiovascular: nl pulses, regular rate and rhythm Gastrointestinal: nl liver, spleen, non-tender, soft Results Result Diagram: 03/12/17 0527 03/12/17 0527 NADIR JACKMAN MD Mar 13, 2017 20:33
[2017-03-13] MEDS: FAMOTIDINE 20 MG INJ IV SCH (21:26)
[2017-03-13] MEDS: ATORVASTATIN 40 MG TAB PO SCH (21:27)
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
[2017-03-14] VITALS (12 sets, daily range): BP systolic 105–130; BP diastolic 50–59; PULSE 96–108; RESP 16–18
[2017-03-14] MEDS: ALBUTEROL/IPRATROPIUM (NEB) 3 ML AMP HHN SCH ×6 (01:24→20:22)
[2017-03-14] MEDS: HYDROmorphONE 1 MG/ML SYG IV PRN ×5 (03:06→23:27)
[2017-03-14 06:29] LABS: ABNORMAL IP MESSAGE 1; BASOPHIL # 0.1 10^3/ul (0.0-0.1); BASOPHILS % 0.5 % (0.0-2.0); EOSINOPHILS # 1.2 10^3/ul (0.0-0.5); EOSINOPHILS % 8.6 % (0.0-7.0); HEMOGLOBIN 9.9 g/dl (12.0-16.0); LYMPHOCYTES # 1.8 10^3/ul (0.8-2.9); LYMPHOCYTES % 12.9 % (15.0-51.0); MEAN CORPUSCULAR HEMOGLOBIN 27.7 pg (29.0-33.0); MEAN CORPUSCULAR HGB CONC 31.9 g/dl (32.0-37.0); MEAN CORPUSCULAR VOLUME 86.8 fl (82.0-101.0); MEAN PLATELET VOLUME 9.9 fl (7.4-10.4); MONOCYTE # 1.6 10^3/ul (0.3-0.9); MONOCYTES % 11.5 % (0.0-11.0); NEUTROPHIL # 8.7 10^3/ul (1.6-7.5); NEUTROPHILS % 63.8 % (39.0-77.0); PLATELET COUNT 522 10^3/UL (140-415); RED BLOOD COUNT 3.57 10^6/ul (4.20-5.40); RED CELL DISTRIBUTION WIDTH 15.9 % (11.5-14.5); WHITE BLOOD COUNT 13.7 10^3/ul (4.8-10.8)
[2017-03-14 06:56] LABS: CALCIUM 9.3 mg/dl (8.4-10.2); POTASSIUM 4.1 mmol/L (3.5-5.1)
[2017-03-14 07:05] LABS: POSITIVE DIFF @See below
[2017-03-14 07:17] LABS: CREATININE 0.88 mg/dl (0.44-1.00)
[2017-03-14] MEDS: THIAMINE 100 MG TAB PO SCH (08:46)
[2017-03-14] MEDS: HYDROCHLOROTHIAZIDE 12.5 MG CAP PO SCH (08:46)
[2017-03-14] MEDS: LOSARTAN 50 MG TAB PO SCH (08:46)
[2017-03-14] MEDS: SENNA TAB PO SCH ×2 (08:47→21:00)
[2017-03-14] MEDS: METOPROLOL (XL) 50 MG TAB PO SCH (08:47)
[2017-03-14] MEDS: DOCUSATE SODIUM 100 MG CAP PO SCH ×5 (08:47→21:00)
[2017-03-14] MEDS: AMLODIPINE 5 MG TAB PO SCH (08:49)
[2017-03-14] MEDS: CEFTRIAXONE 1 GM/50 ML (PMX) 50 ML IVPB SCH (11:59)
[2017-03-14] MEDS ORDERED: DIPHENHYDRAMINE 50 MG INJ IV PRN (14:30)
--- NOTE | 2017-03-14 14:58 | PN ---
Date/Time of Note Date/Time of Note DATE: 03/14/17 TIME: 14:51 Assessment/Plan VTE Prophylaxis VTE Prophylaxis Intervention: SCD's Lines/Catheters IV Catheter Type (from [facility] Saline Lock Urinary Cath still in place: No Assessment/Plan Chief Complaint/Hosp Course 1. Status post fall with in the month multiple rib fractures with very small right anterior hemopneumothorax. Remains hemodynamically stable. -continue with oxygen, bronchodilators, incentive spirometry and pain medications. -CT surgery and pulmonary eval appreciated 2. Moderate pleural effusion with adjacent atelectasis. Repeat chest ultrasound with decreased effusion status. -Attempted thoracentesis, however there was not enough fluid and procedure was canceled -Follow-up with CT surgery regarding further plan -Obtain a.m. chest x-ray to reevaluate 3. Abdominal pain with small hemoperitoneum and pneumoperitoneum RUQ. Resolved -Status post surgery evaluation and no indication for any surgical approach. 4. Urinary tract infection. -Patient has been switched to Levaquin 5. Thrombocytosis, likely dehydration. -Continue IV fluids 6. Acute kidney injury, likely secondary to dehydration. Resolved -We will avoid nephrotoxins and monitor renal function closely. 7. Mildly elevated lipase, likely concurrent. Resolved. 8. Essential hypertension. Stable. -Continue antihypertensives. Will adjust as indicated. 9. Hypercholesterolemia -On statin. Lipid panel stable. 10. Chronic pain with multiple thoracic spinal compression fractures. -Continue home medication and PRN analgesics. 11.Hypokalemia. Resolved. 12. 10 mm lung nodule in the right lower lobe -Recommend f/u CT in 3 months 13. Possible allergic reaction secondary to ceftriaxone -Monitor DVT prophylaxis: SCDs PUD prophylaxis: Pepcid. Plan:F/u with CT surgery regarding further management not pleural effusion. Case discussed with Dr. Mcallister Problems: Subjective 24 Hr Interval Summary Free Text/Dictation No acute overnight episodes. Patient has been having ongoing chest wall pain mostly with cough. Rashes still present. Exam/Review of Systems Vital Signs Vitals Vital Signs Date Time Temp Pulse Resp B/P Pulse Ox O2 Delivery O2 Flow Rate FiO2 03/14/17 12:30 108 03/14/17 12:05 97.6 17 105/58 95 03/14/17 11:19 21 Intake and Output 03/13/17 03/13/17 03/14/17 15:00 23:00 07:00 Intake Total 1000 ml Balance 1000 ml Exam General: Fragile female, not in any acute distress . HEENT: Normocephalic, Atraumatic, No laceration or hematoma; Eyes: PEERL, Conjunctiva clear, Anicteric sclera Neck: Supple without any lymphadenopathy, nontender, no JVD, no carotid bruits, trachea midline, no thyromegaly Cardiac: S1, S2 auscultated, regular rhythm and rate, no mumurs or gallop. There is some mild tenderness to right anterior chest wall especially with patient cough. Pulmonary: Normal respiratory effort. Chest clear to auscultation bilaterally, no adventitious breath sounds GI: soft, non- distended, no masses, no rebound tenderness or guarding. Bowel sounds active on all four quadrants Genitourinary: Deferred Extremities: No cyanosis, clubbing, or edema. Pulses [2+] bilaterally. Full ROM on all four extremities. No focal weakness appreciated. Neurologic: Alert to person, place, time, and situation. Affect appropriate, intact sensation. Skin: Rashes (red) mostly under breast, abdomen and groin area. Clean,dry, and intact. No ecchymosis, no rashes, or lesions Results Result Diagram: 03/14/17 0620 03/14/17 0620 Results 24 hrs Laboratory Tests Test 03/14/17 06:20 White Blood Count 13.7 H Red Blood Count 3.57 L Hemoglobin 9.9 L Hematocrit 31.0 L Mean Corpuscular Volume 86.8 Mean Corpuscular Hemoglobin 27.7 L Mean Corpuscular Hemoglobin Concent 31.9 L Red Cell Distribution Width 15.9 H Platelet Count 522 H Mean Platelet Volume 9.9 Neutrophils % 63.8 Lymphocytes % 12.9 L Monocytes % 11.5 H Eosinophils % 8.6 H Basophils % 0.5 Nucleated Red Blood Cells % 0.0 Neutrophils # 8.7 H Lymphocytes # 1.8 Monocytes # 1.6 H Eosinophils # 1.2 H Basophils # 0.1 Nucleated Red Blood Cells # 0.0 Sodium Level 141 Potassium Level 4.1 Chloride Level 102 Carbon Dioxide Level 26 Anion Gap 17 H Blood Urea Nitrogen 6 L Creatinine 0.88 Glucose Level 116 Calcium Level 9.3 Magnesium Level 1.6 L Medications Medications Current Medications Amlodipine Besylate (Norvasc) 5 mg DAILY PO Last administered on 03/14/17 08:49 ; Admin Dose 5 MG; Start 03/09/17 at 09:00 Atorvastatin Calcium (Lipitor) 40 mg QHS PO Last administered on 03/13/17 21:27 ; Admin Dose 40 MG; Start 03/08/17 at 21:00 Docusate Sodium (Colace) 200 mg BID PO Last administered on 03/12/17 20:35; Admin Dose 200 MG; Start 03/08/17 at 21:00 Senna (Senokot) 1 tab BID PO Last administered on 03/12/17 20:36; Admin Dose 1 TAB; Start 03/08/17 at 21:00 Losartan Potassium (Cozaar) 100 mg DAILY PO Last administered on 03/14/17 08:46 ; Admin Dose 100 MG; Start 03/09/17 at 09:00 Ondansetron HCl (Zofran Inj) 4 mg Q6H PRN IV NAUSEA AND/OR VOMITING; Start 03/08 at 11:00 Acetaminophen (Tylenol Tab) 650 mg Q6H PRN PO PAIN LEVEL 1-3 OR FEVER; Start at 11:00 Acetaminophen (Tylenol Supp) 650 mg Q6H PRN [place] PAIN LEVEL 1-3 OR FEVER; Start 03/08/17 at 11:00 Acetaminophen/ Hydrocodone Bitart ([place] (5/325)) 1 tab Q6H PRN PO MODERATE PAIN LEVEL 4-6 Last administered on 03/09/17 10:36; Admin Dose 1 TAB; Start 03/08 at 11:00 Docusate Sodium (Colace) 100 mg Q12H PRN PO CONSTIPATION; Start 03/08/17 at 11: 00 Hydralazine HCl (Apresoline) 10 mg Q6H PRN IV SBP>160; Start 03/08/17 at 11:30 Hydrochlorothiazide (Hydrochlorothiazide) 12.5 mg DAILY PO Last administered on 03/14/17 08:46; Admin Dose 12.5 MG; Start 03/09/17 at 09:00 Nitroglycerin (Nitroglycerin (Sl Tab) 0.4 Mg) 1 tab Q5M PRN SL CHEST PAIN; Start 03/08/17 at 12:30 Hydromorphone HCl (Dilaudid) 1 mg Q4H PRN IV PAIN Last administered on 13:30; Admin Dose 1 MG; Start 03/08/17 at 15:00 Cyclobenzaprine HCl (Flexeril) 10 mg Q8H PRN PO MUSCLE SPASMS; Start 03/09/17 at 12:00 Docusate Sodium (Colace) 100 mg TID PO Last administered on 03/13/17 13:30; Admin Dose 100 MG; Start 03/10/17 at 13:00 Metoprolol Succinate (Toprol Xl) 50 mg DAILY PO Last administered on 03/14/17 08:47; Admin Dose 50 MG; Start 03/12/17 at 09:00 Thiamine HCl (Vitamin B1) 100 mg DAILY PO Last administered on 03/14/17 08:46; Admin Dose 100 MG; Start 03/11/17 at 10:30; Stop 03/18/17 at 10:29 Famotidine (Pepcid) 20 mg QHS PO ; Start 03/14/17 at 21:00 Levofloxacin (Levaquin) 500 mg DAILY@06 PO ; Start 03/14/17 at 15:00; Stop at 06:01 Diphenhydramine HCl (Benadryl) 25 mg Q6H PRN IV Rash; Start 03/14/17 at 14:30 Guaifenesin/ Dextromethorphan (Robitussin Dm Liquid Cup) 10 ml Q4H PRN PO COUGH ; Start 03/14/17 at 15:00 MARIAMA TORRES NP Mar 14, 2017 14:58
[2017-03-14] MEDS ORDERED: GUAIFENESIN/DM 5ML CUP PO PRN (15:00)
[2017-03-14] MEDS ORDERED: DIPHENHYDRAMINE 25 MG CAP PO ONE (15:00)
[2017-03-14] MEDS: LEVOFLOXACIN 500 MG TAB PO SCH (15:17)
[2017-03-14] MEDS ORDERED: MAGNESIUM SULFATE 1 GM/D5W 100 ML IVPB ONE (16:00)
--- NOTE | 2017-03-14 16:01 | CONS ---
Date/Time of Note Date/Time of Note DATE: 03/14/17 TIME: 15:59 Consult Date/Type/Reason Admit Date/Time Mar 09, 2017 at 10:16 Initial Consult Date 03/08/17 Type of Consultation: Pulmonary Subjective Patient comfortable this afternoon no new events. No shortness of breath no chest pain or palpitations. Ultrasound shows trace pleural effusions. Objective Vital Signs Date Time Temp Pulse Resp B/P Pulse Ox O2 Delivery O2 Flow Rate FiO2 03/14/17 15:15 99.1 99 16 112/57 97 03/14/17 11:19 21 Intake and Output 03/13/17 03/13/17 03/14/17 14:59 22:59 06:59 Intake Total 1000 ml Balance 1000 ml Exam GENERAL: VITAL SIGNS: per chart NECK: Supple. No JVD or lymphadenopathy. CARDIAC EXAM: S1, S2. No added sounds or murmurs. CHEST: clear bilaterally, No added sounds, rales or wheezes ABDOMEN: Soft, nontender. No guarding or rebound. EXTREMITIES: No cyanosis, clubbing or edema. NEUROLOGIC: Generalized weakness. No focal deficits. Results/Medications Result Diagram: 03/14/1720 03/14/1720 Results 24 hrs Laboratory Tests Test 03/14/17 06:20 White Blood Count 13.7 H Red Blood Count 3.57 L Hemoglobin 9.9 L Hematocrit 31.0 L Mean Corpuscular Volume 86.8 Mean Corpuscular Hemoglobin 27.7 L Mean Corpuscular Hemoglobin Concent 31.9 L Red Cell Distribution Width 15.9 H Platelet Count 522 H Mean Platelet Volume 9.9 Neutrophils % 63.8 Lymphocytes % 12.9 L Monocytes % 11.5 H Eosinophils % 8.6 H Basophils % 0.5 Nucleated Red Blood Cells % 0.0 Neutrophils # 8.7 H Lymphocytes # 1.8 Monocytes # 1.6 H Eosinophils # 1.2 H Basophils # 0.1 Nucleated Red Blood Cells # 0.0 Sodium Level 141 Potassium Level 4.1 Chloride Level 102 Carbon Dioxide Level 26 Anion Gap 17 H Blood Urea Nitrogen 6 L Creatinine 0.88 Glucose Level 116 Calcium Level 9.3 Magnesium Level 1.6 L Medications Current Medications Amlodipine Besylate (Norvasc) 5 mg DAILY PO Last administered on 03/14/17t 08:49 ; Admin Dose 5 MG; Start 03/09/17 at 09:00 Atorvastatin Calcium (Lipitor) 40 mg QHS PO Last administered on 03/13/17 21:27 ; Admin Dose 40 MG; Start 03/08/17 at 21:00 Docusate Sodium (Colace) 200 mg BID PO Last administered on 03/12/17 20:35; Admin Dose 200 MG; Start 03/08/17 at 21:00 Senna (Senokot) 1 tab BID PO Last administered on 03/12/17 20:36; Admin Dose 1 TAB; Start 03/08/17 at 21:00 Losartan Potassium (Cozaar) 100 mg DAILY PO Last administered on 03/14/17 08:46 ; Admin Dose 100 MG; Start 03/09/17 at 09:00 Ondansetron HCl (Zofran Inj) 4 mg Q6H PRN IV NAUSEA AND/OR VOMITING; Start 03/08 at 11:00 Acetaminophen (Tylenol Tab) 650 mg Q6H PRN PO PAIN LEVEL 1-3 OR FEVER; Start at 11:00 Acetaminophen (Tylenol Supp) 650 mg Q6H PRN [place] PAIN LEVEL 1-3 OR FEVER; Start 03/08/17 at 11:00 Acetaminophen/ Hydrocodone Bitart ([place] (5/325)) 1 tab Q6H PRN PO MODERATE PAIN LEVEL 4-6 Last administered on 03/09/17 10:36; Admin Dose 1 TAB; Start 03/08 at 11:00 Docusate Sodium (Colace) 100 mg Q12H PRN PO CONSTIPATION; Start 03/08/17 at 11: 00 Hydralazine HCl (Apresoline) 10 mg Q6H PRN IV SBP>160; Start 03/08/17 at 11:30 Hydrochlorothiazide (Hydrochlorothiazide) 12.5 mg DAILY PO Last administered on 03/14/17 08:46; Admin Dose 12.5 MG; Start 03/09/17 at 09:00 Nitroglycerin (Nitroglycerin (Sl Tab) 0.4 Mg) 1 tab Q5M PRN SL CHEST PAIN; Start 03/08/17 at 12:30 Hydromorphone HCl (Dilaudid) 1 mg Q4H PRN IV PAIN Last administered on 13:30; Admin Dose 1 MG; Start 03/08/17 at 15:00 Cyclobenzaprine HCl (Flexeril) 10 mg Q8H PRN PO MUSCLE SPASMS; Start 03/09/17 at 12:00 Docusate Sodium (Colace) 100 mg TID PO Last administered on 03/13/17 13:30; Admin Dose 100 MG; Start 03/10/17 at 13:00 Metoprolol Succinate (Toprol Xl) 50 mg DAILY PO Last administered on 03/14/17 08:47; Admin Dose 50 MG; Start 03/12/17 at 09:00 Thiamine HCl (Vitamin B1) 100 mg DAILY PO Last administered on 03/14/17 08:46; Admin Dose 100 MG; Start 03/11/17 at 10:30; Stop 03/18/17 at 10:29 Famotidine (Pepcid) 20 mg QHS PO ; Start 03/14/17 at 21:00 Levofloxacin (Levaquin) 500 mg DAILY@06 PO Last administered on 03/14/17 15:17 ; Admin Dose 500 MG; Start 03/14/17 at 15:00; Stop 03/20/17 at 06:01 Diphenhydramine HCl (Benadryl) 25 mg Q6H PRN IV Rash; Start 03/14/17 at 14:30 Guaifenesin/ Dextromethorphan 10 ml 10 ml Q4H PRN PO COUGH; Start 03/14/17 at 15 :00 Magnesium Sulfate/ Dextrose (Magnesium Sulfate 1 Gm/D5W) 100 ml @ 100 mls/hr ONCE ONCE IVPB ; Start 03/14/17 at 16:00; Stop 03/14/17 at 16:59 Assessment/Plan Chief Complaint/Hosp Course Additional Assessment/Plan IMP: 1. s/p fall and chest wall trauma 2. R > L effusion: are new and the low density nature of the fluid and b/l nature argues against hemothorax and favors transudative process., Radiographically improved. 3. Extensive tobacco history likely underlying COPD RECS: 1. Thoracentesis unnecessary given ultrasound findings. 2. Encourage ambulation 3. Discharge planning okay from pulmonary standpoint. 4. Complete p.o. antibiotics 5. Follow-up with me in office. Problems: GAIL GUADALUPE [facility], [facility] Mar 14, 2017 16:00
--- NOTE | 2017-03-14 16:37 | PN ---
Date/Time of Note Date/Time of Note DATE: 03/14/17 TIME: 16:35 Assessment/Plan Lines/Catheters IV Catheter Type (from Nrs): Saline Lock Knight in Place (from Nrs): No Assessment/Plan Chief Complaint/Hosp Course Status post fall Multiple right-sided rib fracture She has moderate amount of pleural effusion on the right side which is possibly hemothorax based on CT scan Ultrasound showed trace amount of effusion bilaterally With monitor the effusion on chest x-ray Pulm toilet Ambulation We will discuss with the referring physicians Problems: Subjective 24 Hr Interval Summary Constitutional: improved Pain Control: mild Exam/Review of Systems Vital Signs Vitals Vital Signs Date Time Temp Pulse Resp B/P Pulse Ox O2 Delivery O2 Flow Rate FiO2 03/14/17 16:25 96 03/14/17 15:15 99.1 16 112/57 97 03/14/17 11:19 21 Intake and Output 03/13/17 03/13/17 03/14/17 15:00 23:00 07:00 Intake Total 1000 ml Balance 1000 ml Exam ENMT: mucosa pink and moist, nl external ears & nose, nl lips & teeth, nl nasal mucosa & septum Neck: non-tender, supple Respiratory: clear to auscultation, normal air movement Cardiovascular: nl pulses, regular rate and rhythm Gastrointestinal: nl liver, spleen, non-tender, soft Results Result Diagram: 03/14/1720 03/14/17619 NADIR JACKMAN MD Mar 14, 2017 16:37
[2017-03-14] MEDS: HYDROCODONE/APAP (5/325) TAB PO PRN (18:34)
[2017-03-14] MEDS ORDERED: FAMOTIDINE 20 MG TAB PO SCH (21:00)
[2017-03-14] MEDS: ATORVASTATIN 40 MG TAB PO SCH (21:02)
[2017-03-15 00:38] VITALS: BP 101/51; PULSE 92; RESP 17
[2017-03-15] MEDS: ALBUTEROL/IPRATROPIUM (NEB) 3 ML AMP HHN SCH ×4 (00:39→12:32)
[2017-03-15 04:39] VITALS: BP 103/50; PULSE 89; RESP 17
[2017-03-15] MEDS: HYDROmorphONE 1 MG/ML SYG IV PRN ×2 (05:06→09:45)
[2017-03-15] MEDS: LEVOFLOXACIN 500 MG TAB PO SCH (05:06)
[2017-03-15 07:33] VITALS: BP 116/63; RESP 18
[2017-03-15 08:37] LABS: BASOPHIL # 0.1 10^3/ul (0.0-0.1); BASOPHILS % 0.5 % (0.0-2.0); EOSINOPHILS # 0.9 10^3/ul (0.0-0.5); EOSINOPHILS % 7.4 % (0.0-7.0); HEMOGLOBIN 10.2 g/dl (12.0-16.0); LYMPHOCYTES # 1.5 10^3/ul (0.8-2.9); LYMPHOCYTES % 12.4 % (15.0-51.0); MEAN CORPUSCULAR HEMOGLOBIN 27.9 pg (29.0-33.0); MEAN CORPUSCULAR HGB CONC 31.9 g/dl (32.0-37.0); MEAN CORPUSCULAR VOLUME 87.7 fl (82.0-101.0); MEAN PLATELET VOLUME 10.1 fl (7.4-10.4); MONOCYTE # 1.1 10^3/ul (0.3-0.9); MONOCYTES % 9.5 % (0.0-11.0); NEUTROPHIL # 7.9 10^3/ul (1.6-7.5); NEUTROPHILS % 66.2 % (39.0-77.0); PLATELET COUNT 631 10^3/UL (140-415); RED BLOOD COUNT 3.65 10^6/ul (4.20-5.40); RED CELL DISTRIBUTION WIDTH 15.7 % (11.5-14.5); WHITE BLOOD COUNT 11.9 10^3/ul (4.8-10.8)
[2017-03-15 08:52] VITALS: PULSE 95
[2017-03-15] MEDS: SENNA TAB PO SCH (09:00)
[2017-03-15] MEDS: DOCUSATE SODIUM 100 MG CAP PO SCH ×2 (09:00)
[2017-03-15 09:01] LABS: CALCIUM 9.1 mg/dl (8.4-10.2); CREATININE 0.89 mg/dl (0.44-1.00); MAGNESIUM 1.9 mg/dl (1.7-2.5); POTASSIUM 3.8 mmol/L (3.5-5.1)
--- NOTE | 2017-03-15 09:18 | RADRPT ---
PROCEDURE: XR Chest. CLINICAL INDICATION: Pleural effusions TECHNIQUE: An AP view of the chest was obtained. COMPARISON: Chest x-ray dated 03/09/2017 FINDINGS: There is prominence of the interstitial markings. Are small bilateral pleural effusions. No pneumot horax is seen. The cardiomediastinal silhouette is within normal limits for size. Calcifications ar e seen within the aortic arch. The osseous structures demonstrate senescent changes. IMPRESSION: 1. Small bilateral pleural effusions, improved on the right when compared to the prior examination. 2. Mild prominence of the interstitial markings, may reflect mild underlying interstitial edema or chronic lung changes. There is significantly improved aeration of the right lower lobe when compared to the prior examination. 3. Aortic atherosclerosis. RPTAT: HH .Mariana Hogue MD, Date Time Electronically viewed and signed by .Mariana Hogue MD, on 03/15/2017 09:17 .G/
[2017-03-15] MEDS: HYDROCHLOROTHIAZIDE 12.5 MG CAP PO SCH (09:44)
[2017-03-15] MEDS: LOSARTAN 50 MG TAB PO SCH (09:44)
[2017-03-15] MEDS: METOPROLOL (XL) 50 MG TAB PO SCH (09:44)
[2017-03-15] MEDS: AMLODIPINE 5 MG TAB PO SCH (09:45)
--- NOTE | 2017-03-15 10:08 | PDOCDIS ---
Discharge Instructions CONDITION Patient Condition: Stable HOME CARE INSTRUCTIONS: Diet Instructions: Regular FOLLOW UP/APPOINTMENTS Follow-up Plan 1.Follow up with primary care physician in 1 week If you don't have one please let someone know, we can give you resources that may help you pick one. You may also call your insurance company to assign one to you. Review your medication list with your nurse before leaving and if you need new prescriptions please let your nurse know. I may have made changes to your home medications or given you new prescriptions, please let your primary doctor know as well. Stay compliant with your medications and report any side effects to your PCP or pharmacist. Return to the ER if you have any concerns and cannot reach your doctors or call your insurance company, they usually have a nurse that can help you. 2. Call 911 or go to the nearest emergency room if experiencing loss of consciousness, dizziness, chest pain, shortness of breath, vomiting/abdominal pain, speech difficulties, motor weakness or any unusual symptoms. 3.Follow-up with in 2 weeks [address] [place] [address] [place] [id number] Office MARIAMA TORRES NP Mar 15, 2017 10:07
[2017-03-15] MEDS ORDERED: HYDR-3498 PO (10:14)
[2017-03-15] MEDS ORDERED: UDROBDM PO (10:14)
[2017-03-15] MEDS ORDERED: Thiamine PO (10:14)
[2017-03-15] MEDS: THIAMINE 100 MG TAB PO SCH (10:33)
[2017-03-15 11:24] VITALS: BP 121/59; RESP 17
--- NOTE | 2017-03-15 11:56 | CONS ---
Date/Time of Note Date/Time of Note DATE: 03/15/17 TIME: 11:45 Assessment/Plan Assessment/Plan Chief Complaint/Hosp Course ID PROGRESS NOTE CURRENT ABX: => Levaquin#2 24H INTERVAL SUMMARY * Eager to go home, feeling better, WBC near normalized, [id number] * 03/15 CXR: IMPRESSION:1. Small bilateral pleural effusions, improved on the right when compared to the prior examination.2. Mild prominence of the interstitial markings, may reflect mild underlying interstitial edema or chronic lung changes. There is significantly improved aeration of the right lower lobe when compared to the prior examination. 3. Aortic atherosclerosis. * URINE: URINE CULTURE Final Organism 1 URINE CULTURE Final Organism 1 GAMMA HEMOLYTIC STREP SPP COLONY COUNT 50,000 - 60,000 CFU/ml GAMMA STRP Zone Size RX --------- --- * AMPICILLIN S * CEFAZOLIN S * CEFOTAXIME S * CIPROFLOXACIN S * DOXYCYCLINE S * NITROFURANTOIN S * PENICILLIN S * VANCOMYCIN S * TRIMETHOPRIM/SULFAMETHOXAZOLE S Exam GENERAL:63 VITAL SIGNS: per chart NECK: Supple. supple CARDIAC EXAM: Radial pulse RRR CHEST: Equal chest rise bilaterally without dyspnea on observation ABDOMEN: Soft, nontender. EXTREMITIES: No cyanosis, clubbing or edema. NEUROLOGIC: No focal deficits. ID ASSESSMENT 61 yo M admit with: 1. SIRS w/low grade temps leukocytosis 2. RLL PNA w/chronic interstitial changes 3. UTI Gamma Heme Strep -> Sensitive to Quinolones 4. Acute drug rash reaction to Ceftriaxone (-)MRSA Nares INVASIVES: ABX ALLERGY: KNDA CURRENT ABX: DAY #2-> Levaquin TOTAL ABX DAY #8 ID RECOMMENDATIONS 1. May DC on Levaquin 500mg po daily to complete 14 days for resolving PNA => Today is day # 8/14 Problems: Consultation Date/Type/Reason Admit Date/Time Mar 09, 2017 at 10:16 Initial Consult Date 03/13/17 Type of Consultation: ID Exam/Review of Systems Vital Signs Vitals Vital Signs Date Time Temp Pulse Resp B/P Pulse Ox O2 Delivery O2 Flow Rate FiO2 03/15/17 11:24 99.0 100 17 121/59 95 03/15/17 08:46 21 Intake and Output 03/14/17 03/14/17 03/15/17 15:00 23:00 07:00 Intake Total 950 ml Balance 950 ml Results Result Diagram: 03/15/17 0756 03/15/17 0755 Results 24 hrs Laboratory Tests Test 03/15/17 07:55 03/15/17 07:56 Sodium Level 140 Potassium Level 3.8 Chloride Level 102 Carbon Dioxide Level 24 Anion Gap 18 H Blood Urea Nitrogen 7 Creatinine 0.89 Glucose Level 112 Calcium Level 9.1 Magnesium Level 1.9 White Blood Count 11.9 H Red Blood Count 3.65 L Hemoglobin 10.2 L Hematocrit 32.0 L Mean Corpuscular Volume 87.7 Mean Corpuscular Hemoglobin 27.9 L Mean Corpuscular Hemoglobin Concent 31.9 L Red Cell Distribution Width 15.7 H Platelet Count 631 #H Mean Platelet Volume 10.1 Neutrophils % 66.2 Lymphocytes % 12.4 L Monocytes % 9.5 Eosinophils % 7.4 H Basophils % 0.5 Nucleated Red Blood Cells % 0.0 Neutrophils # 7.9 H Lymphocytes # 1.5 Monocytes # 1.1 H Eosinophils # 0.9 H Basophils # 0.1 Nucleated Red Blood Cells # 0.0 Medications Medications Current Medications Amlodipine Besylate (Norvasc) 5 mg DAILY PO Last administered on 03/15/17 09:45 ; Admin Dose 5 MG; Start 03/09/17 at 09:00 Atorvastatin Calcium (Lipitor) 40 mg QHS PO Last administered on 03/14/17 21:02 ; Admin Dose 40 MG; Start 03/08/17 at 21:00 Docusate Sodium (Colace) 200 mg BID PO Last administered on 03/12/17 20:35; Admin Dose 200 MG; Start 03/08/17 at 21:00 Senna (Senokot) 1 tab BID PO Last administered on 03/12/17 20:36; Admin Dose 1 TAB; Start 03/08/17 at 21:00 Losartan Potassium (Cozaar) 100 mg DAILY PO Last administered on 03/15/17 09:44 ; Admin Dose 100 MG; Start 03/09/17 at 09:00 Ondansetron HCl (Zofran Inj) 4 mg Q6H PRN IV NAUSEA AND/OR VOMITING; Start 03/08 at 11:00 Acetaminophen (Tylenol Tab) 650 mg Q6H PRN PO PAIN LEVEL 1-3 OR FEVER; Start at 11:00 Acetaminophen (Tylenol Supp) 650 mg Q6H PRN [place] PAIN LEVEL 1-3 OR FEVER; Start 03/08/17 at 11:00 Acetaminophen/ Hydrocodone Bitart ([place] (5/325)) 1 tab Q6H PRN PO MODERATE PAIN LEVEL 4-6 Last administered on 03/14/17 18:34; Admin Dose 1 TAB; Start 03/08 at 11:00 Docusate Sodium (Colace) 100 mg Q12H PRN PO CONSTIPATION; Start 03/08/17 at 11: 00 Hydralazine HCl (Apresoline) 10 mg Q6H PRN IV SBP>160; Start 03/08/17 at 11:30 Hydrochlorothiazide (Hydrochlorothiazide) 12.5 mg DAILY PO Last administered on 03/15/17 09:44; Admin Dose 12.5 MG; Start 03/09/17 at 09:00 Nitroglycerin (Nitroglycerin (Sl Tab) 0.4 Mg) 1 tab Q5M PRN SL CHEST PAIN; Start 03/08/17 at 12:30 Hydromorphone HCl (Dilaudid) 1 mg Q4H PRN IV PAIN Last administered on 09:45; Admin Dose 1 MG; Start 03/08/17 at 15:00 Cyclobenzaprine HCl (Flexeril) 10 mg Q8H PRN PO MUSCLE SPASMS; Start 03/09/17 at 12:00 Docusate Sodium (Colace) 100 mg TID PO Last administered on 03/13/17 13:30; Admin Dose 100 MG; Start 03/10/17 at 13:00 Metoprolol Succinate (Toprol Xl) 50 mg DAILY PO Last administered on 03/15/17 09:44; Admin Dose 50 MG; Start 03/12/17 at 09:00 Thiamine HCl (Vitamin B1) 100 mg DAILY PO Last administered on 03/15/17 10:33; Admin Dose 100 MG; Start 03/11/17 at 10:30; Stop 03/18/17 at 10:29 Famotidine (Pepcid) 20 mg QHS PO Last administered on 03/14/17 21:02; Admin Dose 20 MG; Start 03/14/17 at 21:00 Levofloxacin (Levaquin) 500 mg DAILY@06 PO Last administered on 03/15/17 05:06 ; Admin Dose 500 MG; Start 03/14/17 at 15:00; Stop 03/20/17 at 06:01 Diphenhydramine HCl (Benadryl) 25 mg Q6H PRN IV Rash; Start 03/14/17 at 14:30 Guaifenesin/ Dextromethorphan (Robitussin Dm Liquid Cup) 10 ml Q4H PRN PO COUGH Last administered on 03/14/17 18:34; Admin Dose 10 ML; Start 03/14/17 at 15 :00 SUMAYA MIJARES NP Mar 15, 2017 11:56
--- NOTE | 2017-03-15 12:09 | PN ---
Date/Time of Note Date/Time of Note DATE: 03/15/17 TIME: 12:08 Assessment/Plan Lines/Catheters IV Catheter Type (from Nrs): Saline Lock Knight in Place (from Nrs): No Assessment/Plan Chief Complaint/Hosp Course Status post fall Multiple right-sided rib fracture She has moderate amount of pleural effusion on the right side which is possibly hemothorax based on CT scan Ultrasound showed trace amount of effusion bilaterally With monitor the effusion on chest x-ray Pulm toilet Ambulation We will FU as out pt Problems: Subjective 24 Hr Interval Summary Constitutional: improved Pain Control: mild Exam/Review of Systems Vital Signs Vitals Vital Signs Date Time Temp Pulse Resp B/P Pulse Ox O2 Delivery O2 Flow Rate FiO2 03/15/17 11:24 99.0 100 17 121/59 95 03/15/17 08:46 21 Intake and Output 03/14/17 03/14/17 03/15/17 15:00 23:00 07:00 Intake Total 950 ml Balance 950 ml Exam ENMT: mucosa pink and moist, nl external ears & nose, nl lips & teeth, nl nasal mucosa & septum Neck: non-tender, supple Respiratory: clear to auscultation, normal air movement Cardiovascular: nl pulses, regular rate and rhythm Results Result Diagram: 03/15/17 0756 03/15/17 0755 NADIR JACKMAN MD Mar 15, 2017 12:09
[2017-03-15] MEDS ORDERED: LEVO500T72 PO (12:14)
[2017-03-15 12:23] VITALS: PULSE 98
--- NOTE | 2017-03-15 15:44 | DS ---
Date/Time of Note Date/Time of Note DATE: 03/15/17 TIME: 15:30 Discharge Summary Admission/Discharge Info Admit Date/Time Mar 09, 2017 at 10:16 Discharge Date/Time Discharge Diagnosis 1. Status post fall with in the month multiple rib fractures with very small right anterior hemopneumothorax. Stable 2. Moderate pleural effusion with adjacent atelectasis. R 3. Abdominal pain with small hemoperitoneum and pneumoperitoneum RUQ. Resolved 4. Urinary tract infection. 5. Thrombocytosis, likely dehydration. 6. Acute kidney injury, likely secondary to dehydration. Resolved 7. Mildly elevated lipase, likely concurrent. Resolved. 8. Essential hypertension. 9. Hypercholesterolemia 10. Chronic pain with multiple thoracic spinal compression fractures. 11.Hypokalemia. Resolved. 12. 10 mm lung nodule in the right lower lobe 13.RLL PNA w/chronic interstitial changes 14. SIRS secondary to UTI and pneumonia. Resolved Patient Condition: Stable Consults ,CT surgery ,Pulmonary ,surgery ,ID Procedures 03/08/2017. CT abdomen and pelvis without contrast. Minimal right upper quadrant pneumoperitoneum, right basilar hemopneumothorax with adjacent acute right fifth through ninth rib fracture, minimal free fluid adjacent to the inferior margin of the right lobe of the liver with mild free fluid in the pelvis. Infiltration of the ventral upper abdominal mesentery presumably representing a posttraumatic mesenteric contusion. 03/08/2017. CT chest abdomen and pelvis with contrast. MPRESSION: Chest: 1. Mildly displaced lateral rib fractures of the right fourth through eighth ribs and posterior right ninth ribs. 2. Small hemopneumothorax, not significantly changed. 3. Concentric atherosclerotic calcifications of the ascending aorta. Scattered coronary artery vascular calcifications. 4. Moderate to severe chronic-appearing compression fracture of T7 and moderate compression fracture of T12. Abdomen and pelvis: 1. Slightly increased small perihepatic fluid with interval decrease in minimal free air in the right upper quadrant. 2. No evidence of solid organ injury. 3. Mild atrophy of the left kidney. 4. Nodular thickening of bilateral adrenal glands. 5. Ascending colon lipoma. 6. Aortoiliac atherosclerosis. 03/11/[address] chest without contrast. IMPRESSION: 1. Bilateral mild to moderate pleural effusion with partial collapse of the bilateral lower lobes. 2. 10 mm nodule is suspected at the midaxillary right lung base, and IV contrast enhanced CT examination the chest may be of further use to distinguish a pulmonary parenchymal nodule and adjacent atelectasis. 3. Nevertheless, recommend follow-up CT examination the chest in 3 months for further evaluation. 03/13/2017. Ultrasound chest. Trace bilateral pleural fluid. 03/15/2017. Chest x-ray. Small bilateral pleural effusion, improved on the right when compared to the prior exam. Significantly improved aeration of the right lower lobe compared to prior exam. Hospital Course This is a 61-year-old Frisian speaking female, who presented to the emergency room with apparently sustained a fall around 3 weeks ago with multiple rib fractures, ascended to the emergency room with complaints of abdominal pain and chest wall pain. Patient also smokes every day. In the emergency room, a CT showed hemopneumothorax and pneumoperitoneum on the right upper quadrant. Patient was given pain control and oxygen and was admitted for further evaluation. CT surgery, pulmonary and general surgery consult was called. Patient was kept on bedrest and n.p.o. She was kept on pain control. Patient also had leukocytosis. She was also given antibiotic secondary to UTI and possible pneumonia. Imaging studies were repeated and per surgery evaluation pneumoperitoneum was resolved and there was no indication of intestinal injury and no surgical intervention was recommended. Her abdominal symptoms were secondary to a small amount of hemoperitoneum which remained stable. There was no drops in hemoglobin or any bleeding signs. Patient was noted to have pleural effusion and per CT surgery evaluation at thoracentesis was attempted and found out only minimal amount which did not require any drainage. As per recommendation, we continued patient on pulmonary toileting and oxygen as needed with pain control. Patient was also noted to have thrombocytosis which could be likely secondary to dehydration. She was also noted with acute kidney injury and was resolved with fluids. Patient also noted to have elevated lipase which likely concurrent and was resolved. She also noted to have a 10 mm lung nodule in the right lower lobe and the recommendation was to repeat CT in 3 months.She did not require any oxygen and was saturating well on room air. Patient was able to tolerate diet and activities. Imaging studies including chest x-ray was monitored and appeared that pleural effusion was subsiding with improvement in her symptoms. At this time no chest tube insertion or VATS recommended per CT surgery. Patient should be managed medically with pain control. She was medically cleared for discharge from surgery, pulmonary, and CT surgery standpoint. Patient was also evaluated by infectious disease specialist and recommended 6 more days on Levaquin for coverage for resolving pneumonia to a total of 14 days duration. Also noted that, during the course of hospitalization it is noted that patient had possible allergy to ceftriaxone and antibiotics was changed accordingly. Patient is medically stable for discharge. She feels back to baseline. Labs and vital signs remained within acceptable range. Disposition: Patient will be discharged home today with outpatient follow-up. She was also advised smoking cessation. Patient and family verbalized discharge instructions. Condition at time of discharge is stable. 60 minutes was spent in correlating the discharge on this patient. Case discussed with Dr. Mcallister Cable Meds Active Scripts Levofloxacin* (Levaquin*) 500 Mg Tablet, 500 MG PO DAILY@06 for 6 Days, #6 TAB stop date 03/20/17 Prov:MARIAMA TORRES NP 03/15/17 [Thiamine] 100 MG TAB No Conflict Check, 100 MG PO DAILY, #30 Prov:MARIAMA TORRES NP 03/15/17 Guaifenesin-Dextromethorphan* (Robitussin* DM) 100MG/10MG/5ML Syrup, 10 ML PO Q4H Y for COUGH, #10 BOTTLE Prov:MARIAMA TORRES NP 03/15/17 Hydrocodone Bit-Acetaminophen (Hydrocodone Bit-APAP) 5-325MG Tablet, 1 TAB PO Q6H Y for MODERATE PAIN LEVEL 4-6, #30 TAB Prov:MARIAMA TORRES NP 03/15/17 Docusate Sodium* (Colace*) 100 Mg Capsule, 200 MG PO BID, #60 CAP Prov:KEITH NICOLAS MD 12/14/16 Sennosides* (Senna Lax*) 8.6 Mg Tablet, 1 TAB PO BID, #30 TAB Prov:KEITH NICOLAS MD 12/14/16 Reported Medications Cyclobenzaprine Hcl* (Cyclobenzaprine Hcl*) 10 Mg Tablet, 10 MG PO Q8 Y for MUSCLE SPASMS, #60 TAB 03/08/17 Tramadol Hcl* (Ultram*) 50 Mg Tablet, 50 MG PO Q6H Y for PAIN, TAB 03/08/17 Losartan-Hydrochlorothiazide (Losartan-HCTZ) 100-12.5 Mg Tab, 1 TAB PO DAILY, TAB 12/14/16 Metoprolol Succinate* (Toprol XL*) 25 Mg Tab.sr.24h, 25 MG PO DAILY, #30 TAB 12/14/16 Atorvastatin* (Atorvastatin*) 40 Mg Tablet, 40 MG PO QHS, #30 TAB 12/14/16 Amlodipine Besylate* (Norvasc*) 5 Mg Tablet, 5 MG PO DAILY, TAB 12/14/16 Discontinued Reported Medications Hydrocodone/Acetaminophen ([place] 5-325 Tablet) 1 Each Tablet, 1 EACH PO BID, TAB 12/14/16 Discontinued Scripts Magnesium Citrate* (Magnesium Citrate*) 296 Ml Solution, 296 ML PO ONCE, #1 BOTTLE Prov:KEITH NICOLAS MD 12/14/16 Follow-up Plan HOME CARE INSTRUCTIONS: Diet Instructions: Regular FOLLOW UP/APPOINTMENTS Follow-up Plan 1.Follow up with primary care physician in 1 week If you don't have one please let someone know, we can give you resources that may help you pick one. You may also call your insurance company to assign one to you. Review your medication list with your nurse before leaving and if you need new prescriptions please let your nurse know. I may have made changes to your home medications or given you new prescriptions, please let your primary doctor know as well. Stay compliant with your medications and report any side effects to your PCP or pharmacist. Return to the ER if you have any concerns and cannot reach your doctors or call your insurance company, they usually have a nurse that can help you. 2. Call 911 or go to the nearest emergency room if experiencing loss of consciousness, dizziness, chest pain, shortness of breath, vomiting/abdominal pain, speech difficulties, motor weakness or any unusual symptoms. 3.Follow-up with in 2 weeks [id number] [place] [address] Office Primary Care Provider Jason Prater Pending Labs Laboratory Tests Test 03/15/17 07:55 03/15/17 07:56 Sodium Level 140mmol/L (135-144) Potassium Level 3.8mmol/L (3.5-5.1) Chloride Level 102mmol/L (97-110) Carbon Dioxide Level 24mmol/L (21-31) Anion Gap 18 (8-16) Blood Urea Nitrogen 7mg/dl (7-20) Creatinine 0.89mg/dl (0.44-1.00) Glucose Level 112mg/dl (70-220) Calcium Level 9.1mg/dl (8.4-10.2) Magnesium Level 1.9mg/dl (1.7-2.5) White Blood Count 11.910^3/ul (4.8-10.8) Red Blood Count 3.6510^6/ul (4.20-5.40) Hemoglobin 10.2g/dl (12.0-16.0) Hematocrit 32.0% (37.0-47.0) Mean Corpuscular Volume 87.7fl (82.0-101.0) Mean Corpuscular Hemoglobin 27.9pg (29.0-33.0) Mean Corpuscular Hemoglobin Concent 31.9g/dl (32.0-37.0) Red Cell Distribution Width 15.7% (11.5-14.5) Platelet Count 84687^3/UL (140-415) Mean Platelet Volume 10.1fl (7.4-10.4) Neutrophils % 66.2% (39.0-77.0) Lymphocytes % 12.4% (15.0-51.0) Monocytes % 9.5% (0.0-11.0) Eosinophils % 7.4% (0.0-7.0) Basophils % 0.5% (0.0-2.0) Nucleated Red Blood Cells % 0.0/100WBC (0.0-0.0) Neutrophils # 7.910^3/ul (1.6-7.5) Lymphocytes # 1.510^3/ul (0.8-2.9) Monocytes # 1.110^3/ul (0.3-0.9) Eosinophils # 0.910^3/ul (0.0-0.5) Basophils # 0.110^3/ul (0.0-0.1) Nucleated Red Blood Cells # 0.010^3/ul (0.0-0.0) MARIAMA TORRES NP Mar 15, 2017 15:40
--- NOTE | 2017-03-15 16:56 | CONS ---
Date/Time of Note Date/Time of Note DATE: 03/15/17 TIME: 16:55 Consult Date/Type/Reason Admit Date/Time Mar 09, 2017 at 10:16 Initial Consult Date 03/08/17 Type of Consultation: Pulmonary Subjective Patient seen this morning comfortable no shortness of breath. Objective Vital Signs Date Time Temp Pulse Resp B/P Pulse Ox O2 Delivery O2 Flow Rate FiO2 03/15/17 12:32 103 18 94 21 03/15/17 11:24 99.0 121/59 Intake and Output 03/14/17 03/14/17 03/15/17 15:00 23:00 07:00 Intake Total 950 ml Balance 950 ml Exam GENERAL: VITAL SIGNS: per chart NECK: Supple. No JVD or lymphadenopathy. CARDIAC EXAM: S1, S2. No added sounds or murmurs. CHEST: clear bilaterally, No added sounds, rales or wheezes ABDOMEN: Soft, nontender. No guarding or rebound. EXTREMITIES: No cyanosis, clubbing or edema. NEUROLOGIC: Generalized weakness. No focal deficits. Results/Medications Result Diagram: 03/15/17 0756 03/15/17 0755 Results 24 hrs Laboratory Tests Test 03/15/17 07:55 03/15/17 07:56 Sodium Level 140 Potassium Level 3.8 Chloride Level 102 Carbon Dioxide Level 24 Anion Gap 18 H Blood Urea Nitrogen 7 Creatinine 0.89 Glucose Level 112 Calcium Level 9.1 Magnesium Level 1.9 White Blood Count 11.9 H Red Blood Count 3.65 L Hemoglobin 10.2 L Hematocrit 32.0 L Mean Corpuscular Volume 87.7 Mean Corpuscular Hemoglobin 27.9 L Mean Corpuscular Hemoglobin Concent 31.9 L Red Cell Distribution Width 15.7 H Platelet Count 631 #H Mean Platelet Volume 10.1 Neutrophils % 66.2 Lymphocytes % 12.4 L Monocytes % 9.5 Eosinophils % 7.4 H Basophils % 0.5 Nucleated Red Blood Cells % 0.0 Neutrophils # 7.9 H Lymphocytes # 1.5 Monocytes # 1.1 H Eosinophils # 0.9 H Basophils # 0.1 Nucleated Red Blood Cells # 0.0 Assessment/Plan Chief Complaint/Hosp Course Additional Assessment/Plan IMP: 1. s/p fall and chest wall trauma 2. R > L effusion: are new and the low density nature of the fluid and b/l nature argues against hemothorax and favors transudative process., Radiographically improved. 3. Extensive tobacco history likely underlying COPD RECS: 1. Thoracentesis unnecessary given ultrasound findings. 2. Encourage ambulation 3. Discharge planning okay from pulmonary standpoint. 4. Complete p.o. antibiotics 5. Follow-up with me in office. Agree with discharge today. Problems: GAIL GUADALUPE MD, [facility] Mar 15, 2017 16:56
== END 2017-03-15 13:52 | disposition home or self-care (01) | DRG 183 ==
LOC: E/R 04:12 → TEL 03-09 10:16
PROVIDERS: ADMIT Internal Medicine; ATTEND Internal Medicine
DX: S22.41XA Multiple fractures of ribs, right side, initial encounter for closed fracture (principal); S27.2XXA Traumatic hemopneumothorax, initial encounter; J18.9 Pneumonia, unspecified organism; N17.9 Acute kidney failure, unspecified; I11.0 Hypertensive heart disease with heart failure; I50.32 Chronic diastolic (congestive) heart failure; N39.0 Urinary tract infection, site not specified; J90 Pleural effusion, not elsewhere classified; M48.54XA Collapsed vertebra, not elsewhere classified, thoracic region, initial encounter for fracture; E78.5 Hyperlipidemia, unspecified; B95.4 Other streptococcus as the cause of diseases classified elsewhere; L27.0 Generalized skin eruption due to drugs and medicaments taken internally; E86.0 Dehydration; G89.29 Other chronic pain; F17.210 Nicotine dependence, cigarettes, uncomplicated; M81.0 Age-related osteoporosis without current pathological fracture; E87.6 Hypokalemia; R91.1 Solitary pulmonary nodule; T36.1X5A Adverse effect of cephalosporins and other beta-lactam antibiotics, initial encounter; W06.XXXA Fall from bed, initial encounter; Y92.230 Patient room in hospital as the place of occurrence of the external cause; Y92.003 Bedroom of unspecified non-institutional (private) residence as the place of occurrence of the external cause
CPT/HCPCS: 36415; 71010; 71250; 71260; 74176; 74177; 76604; 80048; 80053; 80061; 81001; 82530; 83036; 83605; 83690; 83735; 84100; 84443; 84484; 85025; 85610; 85730; 87040; 87086; 93005; 93306; 94640; 94664; 96374; 96375; 96376; J0696; J1170; J1200; J2270; J2405; J2543; J3475; J7030; J7040; Q9967

== ENCOUNTER 2017-07-11 14:45 | Day surgery (SDC) | payer OTHER ==
[~2017-07-11] VITALS: Ht 157.5 cm; Wt 50.3 kg
[~2017-07-11 14:45] MED LIST changes: +CYCL-319 PO; +HYDR-3498 PO; -HYDR-906 PO; +LEVO500T72 PO; -MAGN296S40 PO; +METO-335 PO; -METO25TA7 PO; +TRAM-40 PO; +Thiamine PO; +UDROBDM PO
[2017-07-11 16:21] VITALS: Ht 157.5 cm; Wt 50.3 kg
[2017-07-11 16:47] VITALS: BP 170/78; PULSE 66; RESP 16
[2017-07-11] MEDS ORDERED: LIDOCAINE 100 MG SYRINGE ONE (16:51)
[2017-07-11] MEDS ORDERED: FENTAnyl 50 MCG/ML VIAL ONE (16:51)
[2017-07-11] MEDS ORDERED: PROPOFOL 40 ML ONE (16:51)
[2017-07-11] MEDS ORDERED: PROPOFOL 20 ML ONE (17:33)
--- NOTE | 2017-07-11 17:52 | OPPN ---
Date/Time of Note Date/Time of Note DATE: 07/11/17 TIME: 16:48 Operative Report Preoperative Diagnosis Screening History of colon polyps Postoperative Diagnosis Right colon flat polyps were removed using biopsy forceps Large submucosal mass in the right colon and biopsies were taken Flat sigmoid colon polyp was removed using biopsy forceps Sigmoid polyp was removed using snare and electrocautery Internal hemorrhoids Operation/Procedure Performed Colonoscopy biopsy and polypectomy Surgeon see signature line radiology practitioner assistant None Anesthesia: MAC Estimated blood loss: none Transfusion Required none Specimen Colon polyps Biopsy of the submucosal mass Grafts/Implants none Complications none JENNIFER HUYNH MD Jul 11, 2017 17:52
[2017-07-11 18:15] VITALS: BP 143/65; PULSE 72; RESP 20
--- NOTE | 2017-07-11 21:21 | GILP ---
DATE OF PROCEDURE: NAME OF PROCEDURE: Colonoscopy, biopsy and polypectomy. SURGEON: Jennifer Lang MD PREOPERATIVE DIAGNOSES: 1. Screening colonoscopy. 2. History of colon polyps. POSTOPERATIVE DIAGNOSES: 1. Colonoscopy all the way to the cecum. 2. Flat polyps in the right colon were removed using the biopsy forceps. 3. Large submucosal mass in the right colon and biopsies were taken for histopathology. 4. Flat sigmoid colon polyp was removed using biopsy forceps. 5. Another sigmoid polyp was removed using the snare and electrocautery. 6. Internal hemorrhoids. INDICATION FOR THE PROCEDURE: Ms. Marlene Rios is a 62-year-old female patient who noticed a change in the bowel habit. She had history of colon polyps, she needed screening colonoscopy. The procedure and possible complications were well explained to the patient, she understood and cons ented to the procedure. DESCRIPTION OF PROCEDURE: Under the influence of anesthesia, the colonoscope was carefully introduc ed in the rectum and under direct vision, it was advanced all the way to the cecum. FINDINGS: The patient had flat polyps in the right colon and they were removed using biopsy forceps . She was noted to have a large submucosal mass in the right colon and biopsies were taken for hist opathology. She had a flat polyp in the sigmoid colon and it was removed using biopsy forceps. She had another sigmoid colon polyp and it was removed using the snare and electrocautery. She was not ed to have internal hemorrhoids. She tolerated the procedure very well and there was no complication from the procedure. At the end of the procedure, she was awake with stable vital signs and she was discharged home to the care of h er family. IMPRESSION: Please see postoperative diagnoses. PLAN: 1. Await histopathology reports. 2. Next screening colonoscopy depending upon the biopsy report. Dictated By: JENNIFER GRANT/ELDER Conf#: [id number] DID#: [id number]
== END 2017-07-11 18:42 | disposition home or self-care (01) ==
LOC: GIL 14:45
PROVIDERS: ATTEND Internal Medicine Gastroenterology
DX: Z12.11 Encounter for screening for malignant neoplasm of colon (principal); D12.5 Benign neoplasm of sigmoid colon; K64.8 Other hemorrhoids; I10 Essential (primary) hypertension; J45.909 Unspecified asthma, uncomplicated; E78.5 Hyperlipidemia, unspecified
CPT/HCPCS: 45380; J2001; J3010